=== PATIENT | female | born 1955 | race Caucasian/White ===

== ENCOUNTER 2016-09-22 11:57 | Inpatient (IN) | payer MEDICARE, OTHER ==
[~2016-09-22] VITALS: Ht 152.4 cm; Wt 112.3 kg
[~2016-09-22 11:57] MED LIST: ASPI325T PO; AUGM875T PO; BACL10TA PO; BACT800T5 PO; CALC500T17 PO; COLA100C3 PO; DULO1CAP2 PO; FENT25T T-DERMAL; FURO1TAB62 PO; GABA300C5 PO; GABA800T PO; GLIM2TAB PO; LACT PO; LEVEMIR SQ; LISI-519 PO; MULT1TAB84 PO; OXYC1CAP PO; PANT40TA3 PO; POTA10CA PO; PRAV40TA2 PO; REGL10TA5 PO
[2016-09-22 12:08] VITALS: BP 118/78; PULSE 80; RESP 16; TEMP 98.7; O2SAT 99
--- NOTE | 2016-09-22 12:50 | PD ---
HPI Chief Complaint: Skin Problem Time Seen by Provider: 12:19 Travel History International Travel<30 days: No Contact w/Intl Traveler<30days: No Traveled to known affect area: No History of Present Illness HPI This is a 61-year-old female who presents to the emergency department with swelling and redness of her left lower extremity, constant, worsening throughout the day. Patient has a history of diabetes and chronic lymphedema and has recurrent cellulitis in the left leg. She says that the redness and warmth started today and has progressed rapidly. This is happened to her before and she always requires admission to the hospital for IV antibiotics. She denies any fevers and chills and otherwise feels well. PFSH Past Medical History Hx Anticoagulant Therapy: Yes Arthritis: Yes (back, right knee) Asthma: No Autoimmune Disease: No Blood Disorders: No Anxiety: No Depression: Yes Heart Rhythm Problems: No Cancer: Yes (Uterine CA 2006) Cardiovascular Problems: Yes High Cholesterol: Yes Chemotherapy: No Chest Pain: Yes (2005) Congestive Heart Failure: No COPD: No Cerebrovascular Accident: Yes (CVA) Diabetes: Yes Patient Takes Glucophage: No Diminished Hearing: No Endocrine: Yes Gastrointestinal Disorders: Yes GERD: No Glaucoma: No Genitourinary: Yes Headaches: Yes Hepatitis: No Hiatal Hernia: No Hypertension: Yes Immune Disorder: No Implanted Vascular Access Dvce: No Kidney Stones: No Musculoskeletal: Yes (left arm pain - shoulder to fingers; left leg pain, LEFT- SIDED DEFECIT/WEAK) 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) Psychiatric: No Reproductive: Yes (Uterine CA) Respiratory: Yes Migraines: Yes Myocardial Infarction: Yes Radiation Therapy: No Renal Failure: No Seizures: No Sickle Cell Disease: No Sleep Apnea: Yes (USES C-PAP) Thyroid Disease: No Ulcer: No Tetanus Vaccination: < 5 Years ?: Not Menopausal: Yes : 1 Para: 1 Past Surgical History Abdominal Surgery: Yes (zachary cramer 1994) AICD: No Appendectomy: No Arteriovenous Shunt: No Cardiac Surgery: No Section: Yes (X 1) Cholecystectomy: Yes Ear Surgery: No Endocrine Surgery: No Eye Surgery: No Genitourinary Surgery: No Gynecologic Surgery: Yes (hysterectomy with node removal 2006, csection 1978) Hysterectomy: Yes Insulin Pump: No Joint Replacement: No Oral Surgery: No Pacemaker: No Thoracic Surgery: No Other Surgery: Yes (sinus surgery) Social History Alcohol Use: No Tobacco Use: No Substance Use: No Allergies-Medications (Allergen,Severity, Reaction): Coded Allergies: Biaxin (Verified Allergy, Severe, RASH, 09/22/16) Lipitor (Verified Allergy, Severe, TREMORS, MUSCLE PAIN, 09/22/16) Uncoded Allergies: PAPER TAPE (Allergy, Severe, Rash, 12/06/14) Reported Meds & Prescriptions Reported Meds & Active Scripts Active Duragesic Patch 72 HR (Fentanyl) 25 Mcg/Hr Patch 25 Mcg T-DERMAL Q72H Remove old patch when new one placed. Oxycodone (Oxycodone HCl) 5 Mg Cap 5 Mg PO Q6H PRN Potassium Chloride ER (Potassium Chloride) 10 Meq Cap 10 Meq PO DAILY Reglan (Metoclopramide HCl) 10 Mg Tab 10 Mg PO DIRECTED Take TIDAC and QHS Take 30 min before meals. Levemir Inj (Insulin Detemir) 1,000 unit/ 10 ML Vial 26 Units SQ HS 30 Days Reported Pravastatin 40 Mg Tab 40 Mg PO DAILY Lisinopril 5 Mg Tab 5 Mg PO DAILY Baclofen 10 Mg Tab 30 Mg PO HS Duloxetine DR (Duloxetine HCl) 30 Mg Capdr 30 Mg PO DAILY Pantoprazole (Pantoprazole Sodium) 40 Mg Tab 40 Mg PO DAILY Multivitamin Adults (Multiple Vitamins W/ Minerals) 1 Tab 1 Tab PO DAILY Gabapentin 800 Mg Tab 800 Mg PO HS Gabapentin 300 Mg Cap 300 Mg PO DAILY Lasix (Furosemide) 20 Mg Tab 20 Mg PO DAILY Calcium (Calcium Carbonate) 1,250 Mg Tab 1,250 Mg PO DAILY 1,250 mg calcium carbonate (500 mg elemental calcium) Aspirin 325 Mg Tab 325 Mg PO DAILY Glimepiride 2 Mg Tab 2 Mg PO DAILY Take with breakfast or first main meal Colace (Docusate Sodium) 100 Mg Cap 100 Mg PO BID PRN Review of Systems Except as stated in HPI: all other systems reviewed are Neg Physical Exam Narrative GENERAL:Well appearing, no acute distress SKIN: Erythema and warmth of the left lower extremity from the ankle up to the thigh. Lymphedema of the left lower extremity. HEAD: Atraumatic. Normocephalic. EYES: Pupils equal and round. No injection or drainage. ENT: Moist mucous membranes NECK: Trachea midline. CARDIOVASCULAR: Regular rate and rhythm. No murmur appreciated. RESPIRATORY: Clear to auscultation. Breath sounds equal bilaterally. GASTROINTESTINAL: Abdomen soft, non-tender, nondistended. MUSCULOSKELETAL: No obvious deformities. NEUROLOGICAL: Awake and alert. No obvious cranial nerve deficits. Moving all extremities. PSYCHIATRIC: Appropriate mood and affect; insight and judgment normal. Data Data Last Documented VS Vital Signs Date Time Temp Pulse Resp B/P Pulse Ox O2 Delivery O2 Flow Rate FiO2 09/22/16 14:15 16 09/22/16 13:30 80 116/76 98 Room Air 09/22/16 12:08 98.7 Orders Complete Blood Count With Diff (09/22/16 12:23) Comprehensive Metabolic Panel (09/22/16 12:23) Lactic Acid Sepsis Protocol (09/22/16 12:23) Blood Culture (09/22/16 12:23) Blood Glucose (09/22/16 12:23) Ecg Monitoring (09/22/16 12:23) Iv Access Insert/Monitor (09/22/16 12:23) Oximetry (09/22/16 12:23) Oxygen Administration (09/22/16 12:23) Ed Poc Ultrasound (09/22/16 ) Vancomycin Inj (Vancomycin Inj) (09/22/16 13:15) Vancomycin Inj (Vancomycin Inj) (09/22/16 14:00) Morphine Inj (Morphine Inj) (09/22/16 14:00) Vancomycin Inj (Vancomycin Inj) (09/22/16 14:00) Consult Vascular Access Team (09/22/16 ) Vascular Poc Ultrasound (09/22/16 ) Hydromorphone Pf Inj (Dilaudid Pf Inj) (09/22/16 14:30) Admit Order (Ed Use Only) (09/22/16 14:28) Labs Laboratory Tests Test 09/22/16 09/22/16 13:00 13:05 White Blood Count 22.6 TH/MM3 Red Blood Count 4.54 MIL/MM3 Hemoglobin 13.3 GM/DL Hematocrit 38.8 % Mean Corpuscular Volume 85.5 FL Mean Corpuscular Hemoglobin 29.4 PG Mean Corpuscular Hemoglobin 34.3 % Concent Red Cell Distribution Width 12.5 % Platelet Count 346 TH/MM3 Mean Platelet Volume 8.6 FL Neutrophils (%) (Auto) 87.9 % Lymphocytes (%) (Auto) 3.7 % Monocytes (%) (Auto) 4.3 % Eosinophils (%) (Auto) 0.2 % Basophils (%) (Auto) 3.9 % Neutrophils # (Auto) 19.9 TH/MM3 Lymphocytes # (Auto) 0.8 TH/MM3 Monocytes # (Auto) 1.0 TH/MM3 Eosinophils # (Auto) 0.0 TH/MM3 Basophils # (Auto) 0.9 TH/MM3 CBC Comment AUTO DIFF Differential Total Cells 100 Counted Neutrophils % (Manual) 89 % Band Neutrophils % 3 % Lymphocytes % 5 % Monocytes % 3 % Neutrophils # (Manual) 20.8 TH/MM3 Differential Comment FINAL DIFF MANUAL Platelet Estimate NORMAL Platelet Morphology Comment NORMAL Sodium Level 140 MEQ/L Potassium Level 3.6 MEQ/L Chloride Level 100 MEQ/L Carbon Dioxide Level 30.6 MEQ/L Anion Gap 9 MEQ/L Blood Urea Nitrogen 12 MG/DL Creatinine 0.71 MG/DL Estimat Glomerular Filtration 84 ML/MIN Rate Random Glucose 202 MG/DL Calcium Level 9.1 MG/DL Total Bilirubin 0.6 MG/DL Aspartate Amino Transf 18 U/L (AST/SGOT) Alanine Aminotransferase 28 U/L (ALT/SGPT) Alkaline Phosphatase 130 U/L Total Protein 8.1 GM/DL Albumin 3.8 GM/DL Lactic Acid Level 2.2 mmol/L [facility] Medical Decision Making Medical Screen Exam Complete: Yes Emergency Medical Condition: Yes Interpretation(s) Afebrile, no tachycardia, normotensive Leukocytosis Left shift Electrolytes within normal limits Lactic acid 2.2 Differential Diagnosis Cellulitis, sepsis, necrotizing fasciitis Narrative Course This is a 61-year-old female who presents to the emergency department with cellulitis of her left lower extremity in the setting of chronic lymphedema. She was placed on a monitor and an IV was established. Patient was found to have a marked leukocytosis with left shift. Her lactic acid is 2.2. I'm hesitant to hydrate her given her already severe lymphedema. Patient will be given IV antibiotics and admitted for management of cellulitis. Diagnosis Primary Impression: Cellulitis of leg, left Admitting Information Admitting Physician Requests: Admit Jessi Kim MD Sep 22, 2016 12:50
[2016-09-22] MEDS ORDERED: VANCOMYCIN INJ 1,650 MG in SODIUM CHLORID 0.9% 500 ML INJ 500 ML IV ONE ×5 (13:15→14:00)
[2016-09-22 13:30] VITALS: BP 116/76; PULSE 80; RESP 16; O2SAT 98
[2016-09-22 13:33] LABS: AUTOMATED NEUTROPHIL # 19.9 TH/MM3 (1.8-7.7); BASOPHIL # 0.9 TH/MM3 (0-0.2); BASOPHIL % 3.9 % (0.0-2.0); EOSINOPHIL % 0.2 % (0.0-4.0); HEMATOCRIT 38.8 % (35.0-46.0); LYMPH % 3.7 % (9.0-44.0); LYMPHOCYTE # 0.8 TH/MM3 (1.0-4.8); MEAN CELL VOLUME 85.5 FL (80.0-100.0); MEAN CORPUSCULAR HEMOGLOBIN 29.4 PG (27.0-34.0); MEAN CORPUSCULAR HGB CONC 34.3 % (32.0-36.0); MONO % 4.3 % (0.0-8.0); NEUT % 87.9 % (16.0-70.0); PLATELET COUNT 346 TH/MM3 (150-450); RED BLOOD COUNT 4.54 MIL/MM3 (4.00-5.30); RED CELL DISTRIBUTION WIDTH 12.5 % (11.6-17.2); WHITE BLOOD COUNT 22.6 TH/MM3 (4.0-11.0)
[2016-09-22 13:37] LABS: HEMO FLAGS AUTO DIFF
[2016-09-22 13:43] LABS: CHLORIDE 100 MEQ/L (98-107); POTASSIUM 3.6 MEQ/L (3.5-5.1); SODIUM (NA) 140 MEQ/L (136-145)
[2016-09-22 13:46] LABS: ANION GAP 9 MEQ/L (5-15); BICARBONATE 30.6 MEQ/L (21.0-32.0); BLOOD UREA NITROGEN 12 MG/DL (7-18)
[2016-09-22 13:49] LABS: ALT (GPT) 28 U/L (10-53)
[2016-09-22 13:50] LABS: AST (GOT) 18 U/L (15-37); GLOMERULAR FILTRATION RATE 84 ML/MIN (>89)
[2016-09-22 13:51] LABS: TOTAL BILIRUBIN ADULT 0.6 MG/DL (0.2-1.0)
[2016-09-22 13:52] LABS: ALKALINE PHOSPHATASE 130 U/L (45-117)
[2016-09-22] MEDS ORDERED: MORPHINE SULFATE 4 MG/ML INJ IV PUSH ONE (14:00)
[2016-09-22 14:13] LABS: BANDS 3 % (0-6); NEUTROPHIL # MANUAL DIFF 20.8 TH/MM3 (1.8-7.7); PLATELET ESTIMATE SMEAR NORMAL (NORMAL); PLATELET MORPHOLOGY NORMAL (NORMAL); POLYS (SEG NEUTROPHILS) 89 % (16-70); SCAN/DIFF FINAL DIFF MANUAL; WBC DIFF SAMPLE 100
[2016-09-22] MEDS ORDERED: HYDROmorphone HCL PF 1 MG/ML VIAL IM ONE (14:30)
[2016-09-22 14:45] VITALS: BP 118/61; PULSE 98; RESP 16; O2SAT 96
[2016-09-22 15:28] LABS: LACTIC ACID GHOST NOT REPORTABLE
[2016-09-22] MEDS ORDERED: Vancomycin Consult Pharmacy 1 EA OTHER SCH (15:30)
[2016-09-22] MEDS ORDERED: VANCOMYCIN INJ 1,000 MG in SODIUM CHLOR 0.9% 250 ML INJ 250 ML IV SCH (15:30)
[2016-09-22] MEDS ORDERED: ONDANSETRON HCL 4 MG/2 ML VIAL IVP PRN (15:30)
[2016-09-22] MEDS ORDERED: SODIUM CHLORIDE 0.9% FLUSH 5 ML FLUSH FLUSH PRN (15:30)
--- NOTE | 2016-09-22 15:56 | HHI.HP ---
[facility] Primary Care Physician Non-Staff Admission Diagnosis sepsis, cellulitis Diagnoses: Chief Complaint: Left leg redness and swelling Travel History International Travel<30 Days: No Contact w/Intl Traveler <30 Da: No Traveled to Known Affected Are: No Sepsis Criteria SIRS Criteria (2 or more): Heart rate over 90, WBC > 18964, < 4000 or > 10% bands History of Present Illness This patient is a 61-year-old female with a history of morbid obesity and diabetes as well as a history of lymph node resection due to cervical cancer. She has chronic lymphedema and the left lower extremity as well as some left hemiparesis related to residual effects of her old stroke. Patient has noted one day history of increased redness and swelling in the left lower extremity similar to previous episodes in which she has had cellulitis and sepsis related to said cellulitis. Patient says the pain in her leg became great and she had some associated chills and felt warm and came to the emergency room. At this point patient has some mild tachycardia with elevated white cell count and elevated lactic acid has been admitted through the emergency room for sepsis. The pain in her leg has been relieved with IV Dilaudid. She has been started on IV antibiotics and is recommended for further inpatient treatment Review of Systems Constitutional: DENIES: Diaphoretic episodes, Fatigue, Fever, Weight gain, Weight loss, Chills, Dizziness, Change in appetite, Night Sweats Endocrine: DENIES: Abnorml menstrual pattern, Heat/cold intolerance, Polydipsia , Polyuria, Polyphagia Eyes: DENIES: Blurred vision, Diplopia, Eye inflammation, Eye pain, Vision loss , Photosensitivity, Double Vision Ears, nose, mouth, throat: DENIES: Tinnitus, Hearing loss, Vertigo, Nasal discharge, Oral lesions, Throat pain, Hoarseness, Ear Pain, Running Nose, Epistaxis, Sinus Pain, Toothache, Odynophagia Respiratory: DENIES: Apneas, Cough, Snoring, Wheezing, Hemoptysis, Sputum production, Shortness of breath Cardiovascular: DENIES: Chest pain, Palpitations, Syncope, Dyspnea on Exertion , PND, Lower Extremity Edema, Orthopnea, Claudication Gastrointestinal: DENIES: Abdominal pain, Black stools, Bloody stools, Constipation, Diarrhea, Nausea, Vomiting, Difficulty Swallowing, Anorexia Genitourinary: DENIES: Abnormal vaginal bleeding, Dysmenorrhea, Dyspareunia, Sexual dysfunction, Urinary frequency, Urinary incontinence, Urgency, Hematuria , Dysuria, Nocturia, Vaginal discharge Musculoskeletal: DENIES: Joint pain, Muscle aches, Stiffness, Joint Swelling, Back pain, Neck pain Integumentary: DENIES: Abnormal pigmentation, Pruritus, Rash, Nail changes, Breast masses, Breast skin changes, Nipple discharge Hematologic/lymphatic: DENIES: Bruising, Lymphadenopathy Immunologic/allergic: DENIES: Eczema, Urticaria Neurologic: DENIES: Abnormal gait, Headache, Localized weakness, Paresthesias, Seizures, Speech Problems, Tremor, Poor Balance Psychiatric: DENIES: Anxiety, Confusion, Mood changes, Depression, Hallucinations, Agitation, Suicidal Ideation, Homicidal Ideation, Delusions Past Family Social History Past Medical History Diabetes Hypertension History of stroke with residual left-sided weakness Hyperlipidemia Hypertriglyceridemia Chronic neuropathy of diabetes History of [place] cervical cancer status post lymph node resection Past Surgical History Lymph node resection Cholecystectomy Hysterectomy Reported Medications Reviewed in the medical record, no recent antibiotics Allergies: Coded Allergies: Biaxin (Verified Allergy, Severe, RASH, 09/22/16) Lipitor (Verified Allergy, Severe, TREMORS, MUSCLE PAIN, 09/22/16) Uncoded Allergies: PAPER TAPE (Allergy, Severe, Rash, 12/06/14) Active Ordered Medications Reviewed in the medical record Family History Diabetes and hypertension Social History No current tobacco or alcohol, lives with her Physical Exam Vital Signs Vital Signs Date Time Temp Pulse Resp B/P Pulse Ox O2 Delivery O2 Flow Rate FiO2 09/22/16 14:45 98 16 118/61 96 Room Air 09/22/16 14:15 16 09/22/16 13:30 80 16 116/76 98 Room Air 09/22/16 13:30 98 Room Air 09/22/16 13:30 16 98 Room Air 09/22/16 12:08 98.7 80 16 118/78 99 Physical Exam GENERAL: This is a well-nourished, well-developed patient, in no apparent distress. SKIN: No rashes, ecchymoses or lesions. Cool and dry. HEAD: Atraumatic. Normocephalic. No temporal or scalp tenderness. EYES: Pupils equal round and reactive. Extraocular motions intact. No scleral icterus. No injection or drainage. ENT: Nose without bleeding, purulent drainage or septal hematoma. Throat without erythema, tonsillar hypertrophy or exudate. Uvula midline. Airway patent. NECK: Trachea midline. No JVD or lymphadenopathy. Supple, nontender, no meningeal signs. CARDIOVASCULAR: Regular rate and rhythm without murmurs, gallops, or rubs. RESPIRATORY: Clear to auscultation. Breath sounds equal bilaterally. No wheezes , rales, or rhonchi. GASTROINTESTINAL: Abdomen soft, non-tender, nondistended. No hepato-splenomegaly , or palpable masses. No guarding. MUSCULOSKELETAL: Left lower extremity lymphedematous changes with superimposed erythema and induration and calorie, this extends from the top of the foot into high in the thigh. Other 3 Extremities without clubbing, cyanosis, or edema. No joint tenderness, effusion, or edema noted. No calf tenderness. Negative Homans sign bilaterally. NEUROLOGICAL: Awake and alert. Cranial nerves II through XII intact. Motor and sensory grossly within normal limits. Five out of 5 muscle strength in all muscle groups. Normal speech. Laboratory Laboratory Tests Test 09/22/16 09/22/16 13:00 13:05 White Blood Count 22.6 Red Blood Count 4.54 Hemoglobin 13.3 Hematocrit 38.8 Mean Corpuscular Volume 85.5 Mean Corpuscular Hemoglobin 29.4 Mean Corpuscular Hemoglobin 34.3 Concent Red Cell Distribution Width 12.5 Platelet Count 346 Mean Platelet Volume 8.6 Neutrophils (%) (Auto) 87.9 Lymphocytes (%) (Auto) 3.7 Monocytes (%) (Auto) 4.3 Eosinophils (%) (Auto) 0.2 Basophils (%) (Auto) 3.9 Neutrophils # (Auto) 19.9 Lymphocytes # (Auto) 0.8 Monocytes # (Auto) 1.0 Eosinophils # (Auto) 0.0 Basophils # (Auto) 0.9 CBC Comment AUTO DIFF Differential Total Cells 100 Counted Neutrophils % (Manual) 89 Band Neutrophils % 3 Lymphocytes % 5 Monocytes % 3 Neutrophils # (Manual) 20.8 Differential Comment FINAL DIFF MANUAL Platelet Estimate NORMAL Platelet Morphology Comment NORMAL Sodium Level 140 Potassium Level 3.6 Chloride Level 100 Carbon Dioxide Level 30.6 Anion Gap 9 Blood Urea Nitrogen 12 Creatinine 0.71 Estimat Glomerular Filtration 84 Rate Random Glucose 202 Calcium Level 9.1 Total Bilirubin 0.6 Aspartate Amino Transf 18 (AST/SGOT) Alanine Aminotransferase 28 (ALT/SGPT) Alkaline Phosphatase 130 Total Protein 8.1 Albumin 3.8 Lactic Acid Level 2.2 Date/Time Procedure Status Source Growth 09/22/16 13:05 Aerobic Blood Culture Received Blood Peripheral Pending 09/22/16 13:05 Anaerobic Blood Culture Received Blood Peripheral Pending Result Diagram: 09/22/16 1300 09/22/16 1300 Septic Shock Reassessment Heart: Regular rate and rhythm Lungs: Clear Skin: Warm Peripheral Pulses: Bounding Right Radial Bounding Left Radial Bounding Right Popliteal Bounding Left Popliteal Bounding Right Dorsalis Pedis Bounding Left Dorsalis Pedis Bounding Right Posterior Tibial Bounding Left Posterior Tibial Capillary Refill: Brisk Assessment and Plan Problem List: (1) Sepsis affecting skin ICD Code: L02.91 Status: Acute Plan: Leukocytosis, heart rate over 90, elevated lactic acid and left lower extremity cellulitis Continue with IV vancomycin and Zosyn (2) DM (diabetes mellitus), type 2, uncontrolled ICD Code: E11.65 Status: Chronic Plan: Continue Levemir, Amaryl, continue sliding scale and diabetic diet (3) HTN (hypertension) ICD Code: I10 Status: Chronic Plan: Continue home lisinopril for blood pressure Physician Certification 2 Midnight Certification Type: Admission for Inpatient Services Order for Inpatient Services The services are ordered in accordance with Medicare regulations or non- Medicare payer requirements, as applicable. In the case of services not specified as inpatient-only, they are appropriately provided as inpatient services in accordance with the 2-midnight benchmark. Estimated LOS (days): 3 3 days is the estimated time the patient will need to remain in the hospital, assuming treatment plan goals are met and no additional complications. Post-Hospital Plan: Home Clair Keen MD Sep 22, 2016 15:56
[2016-09-22] MEDS ORDERED: DOCUSATE SODIUM 100 MG CAP PO PRN (16:00)
[2016-09-22] MEDS ORDERED: METOCLOPRAMIDE HCL 10 MG TAB PO PRN (16:00)
[2016-09-22] MEDS ORDERED: GLUCAGON 1 MG/ML VIAL OTHER PRN (16:00)
[2016-09-22] MEDS ORDERED: DEXTROSE 50% IN WATER 50 ML VIAL(D50) IV PUSH PRN (16:00)
[2016-09-22] MEDS ORDERED: PIPERACIL-TAZO 4.5 GM PREMIX 100 ML IV SCH (16:00)
[2016-09-22] MEDS: INSULIN ASPART SUPPLEMENTAL SCALE SQ SCH ×2 (17:00→22:33)
[2016-09-22] MEDS ORDERED: REMOVE OLD DURAGESIC (FENTANYL) PATCH T-DERMAL SCH (18:00)
[2016-09-22] MEDS ORDERED: fentaNYL 25 MCG/HR PATCH T-DERMAL SCH (18:00)
[2016-09-22 20:00] VITALS: BP 120/74; PULSE 100; RESP 18; TEMP 101.1; O2SAT 93
[2016-09-22] MEDS: SODIUM CHLORIDE 0.9% FLUSH 5 ML FLUSH FLUSH SCH (21:03)
[2016-09-22] MEDS: BACLOFEN 10 MG TAB PO SCH (22:27)
[2016-09-22] MEDS: INSULIN DETEMIR 100 UNITS/ML VIAL SQ SCH (22:28)
[2016-09-22] MEDS: GABAPENTIN 400 MG CAP PO SCH (22:28)
[2016-09-22] MEDS: ACETAMINOPHEN 325 MG TAB PO PRN (22:29)
[2016-09-23] VITALS: BP 116/63; PULSE 102; RESP 18; TEMP 101.8; O2SAT 92
[2016-09-23 03:34] VITALS: BP 99/59; PULSE 94; RESP 20; TEMP 99.4; O2SAT 94
[2016-09-23] MEDS: ACETAMINOPHEN 325 MG TAB PO PRN (04:47)
[2016-09-23] MEDS: PIPERACIL-TAZO 4.5 GM PREMIX 100 ML IV SCH ×3 (04:49→21:45)
[2016-09-23] MEDS: INSULIN ASPART SUPPLEMENTAL SCALE SQ SCH ×4 (04:59→19:51)
[2016-09-23 06:06] LABS: POTASSIUM 3.1 MEQ/L (3.5-5.1)
[2016-09-23 06:09] LABS: BICARBONATE 29.2 MEQ/L (21.0-32.0)
[2016-09-23] MEDS: LISINOPRIL 5 MG TAB PO SCH (07:58)
[2016-09-23] MEDS: GABAPENTIN 300 MG CAP PO SCH (07:58)
[2016-09-23] MEDS: FUROSEMIDE 20 MG TAB PO SCH (07:58)
[2016-09-23] MEDS: PRAVASTATIN SOD 40 MG TAB PO SCH (07:58)
[2016-09-23] MEDS: ASPIRIN 325 MG TAB PO SCH (07:58)
[2016-09-23] MEDS: GLIMEPIRIDE 2 MG TAB PO SCH (07:59)
[2016-09-23] MEDS: MULTIVITAMINS/MINERALS THERAPEUTIC TAB PO SCH (07:59)
[2016-09-23] MEDS: PANTOPRAZOLE SOD 40 MG DELAYED RELEASE TAB PO SCH (07:59)
[2016-09-23] MEDS: CALCIUM CARBONATE 1.25 GM (CA 500 MG) TAB PO SCH (07:59)
[2016-09-23] MEDS: DULoxetine HCl DR 30 MG CAP PO SCH (08:00)
[2016-09-23] MEDS: SODIUM CHLORIDE 0.9% FLUSH 5 ML FLUSH FLUSH SCH ×2 (08:00→19:55)
[2016-09-23 09:08] VITALS: BP 93/51; PULSE 73; RESP 15; TEMP 97.3; O2SAT 98
[2016-09-23 09:09] LABS: HEMATOCRIT 35.4 % (35.0-46.0); HEMO FLAGS AUTO DIFF; MEAN CELL VOLUME 86.6 FL (80.0-100.0); MEAN CORPUSCULAR HGB CONC 33.5 % (32.0-36.0); PLATELET COUNT 291 TH/MM3 (150-450); RED BLOOD COUNT 4.09 MIL/MM3 (4.00-5.30); WHITE BLOOD COUNT 20.7 TH/MM3 (4.0-11.0)
[2016-09-23 09:10] LABS: AUTOMATED NEUTROPHIL # 16.8 TH/MM3 (1.8-7.7); BASOPHIL # 0.3 TH/MM3 (0-0.2); BASOPHIL % 1.5 % (0.0-2.0); EOSINOPHIL # 0.1 TH/MM3 (0-0.4); EOSINOPHIL % 0.7 % (0.0-4.0); LYMPH % 10.4 % (9.0-44.0); LYMPHOCYTE # 2.2 TH/MM3 (1.0-4.8); MONO % 6.3 % (0.0-8.0); NEUT % 81.1 % (16.0-70.0); SCAN/DIFF AUTO DIFF CONFIRMED
--- NOTE | 2016-09-23 10:35 | HHI.PR ---
Subjective Remarks Patient seen today in follow-up for cellulitis and sepsis. Left lower extremity appears improved. Blood cultures now show 1 out of 2 gram-positive cocci. Patient continues to tolerate antibiotics well. Objective Vitals Vital Signs Date Time Temp Pulse Resp B/P Pulse Ox O2 Delivery O2 Flow Rate FiO2 09/23/16 09:08 97.3 73 15 93/51 98 09/23/16 03:34 99.4 94 20 99/59 94 09/23/16 00:00 101.8 102 18 116/63 92 09/22/16 20:00 101.1 100 18 120/74 93 09/22/16 14:45 98 16 118/61 96 Room Air 09/22/16 14:15 16 09/22/16 13:30 80 16 116/76 98 Room Air 09/22/16 13:30 98 Room Air 09/22/16 13:30 16 98 Room Air 09/22/16 12:08 98.7 80 16 118/78 99 I/O 09/22/16 09/22/16 09/22/16 09/23/16 09/23/16 09/23/16 07:00 15:00 23:00 07:00 15:00 23:00 Intake Total 600 ml 200 ml Balance 600 ml 200 ml Intake Oral 100 ml IV Total 600 ml 100 ml Result Diagram: 09/23/16 0755 09/23/16 0545 Objective Remarks GENERAL: This is a well-nourished, well-developed patient, in no apparent distress. CARDIOVASCULAR: Regular rate and rhythm without murmurs, gallops, or rubs. RESPIRATORY: Clear to auscultation. Breath sounds equal bilaterally. No wheezes , rales, or rhonchi. GASTROINTESTINAL: Abdomen soft, non-tender, nondistended. Normal active bowel sounds MUSCULOSKELETAL: Left lower extremity edema and erythema is improved Extremities without clubbing, cyanosis, or edema. NEURO: Alert & Oriented x4 to person, place, time, situation. Moves all ext x4 A/P Problem List: (1) Sepsis affecting skin ICD Code: L02.91 Status: Acute Plan: Improved sepsis, follow blood cultures, leukocytosis, heart rate lactic acid are improved Continue with IV vancomycin and Zosyn (2) DM (diabetes mellitus), type 2, uncontrolled ICD Code: E11.65 Status: Chronic Plan: Continue Levemir, Amaryl, continue sliding scale and diabetic diet (3) HTN (hypertension) ICD Code: I10 Status: Chronic Plan: Continue home lisinopril for blood pressure Assessment and Plan PT Clair Pollack MD Sep 23, 2016 10:35
[2016-09-23] MEDS ORDERED: POTASSIUM PHOSPHATE INJ 30 MMOL in SODIUM CHLOR 0.9% 250 ML INJ 250 ML IV ONE (11:00)
--- NOTE | 2016-09-23 12:12 | HHI.FF ---
Face to Face Verification Diagnosis: (1) Stroke Physical Therapy Order: Evaluate and Treat, Improve ambulation Home Health Nursing Order: Medical education Signs/symptoms of disease process Medication education-adverse effect Home Health Aide Order: To Assist In: Bathing and personal care, choir teacher and meal prep I have seen patient Louise Parker on 09/23/16. My clinical findings support the need for the requested home health care services because: Ltd mobility - disease progression I certify that my clinical findings support that this patient is homebound because: Unsteady gait/balance Clair Keen MD Sep 23, 2016 12:12
[2016-09-23] MEDS: ENOXAPARIN SODIUM 40 MG/0.4 ML SYRINGE SQ SCH (12:27)
[2016-09-23] MEDS: VANCOMYCIN INJ 1,600 MG in SODIUM CHLORID 0.9% 500 ML INJ 500 ML IV SCH (12:28)
[2016-09-23 13:43] VITALS: BP 115/64; PULSE 80; RESP 16; TEMP 97.6; O2SAT 96
[2016-09-23 18:49] VITALS: BP 117/68; PULSE 79; RESP 15; TEMP 97.6; O2SAT 95
[2016-09-23] MEDS: INSULIN DETEMIR 100 UNITS/ML VIAL SQ SCH (19:50)
[2016-09-23] MEDS: GABAPENTIN 400 MG CAP PO SCH (19:51)
[2016-09-23] MEDS: BACLOFEN 10 MG TAB PO SCH (19:51)
[2016-09-23 20:00] VITALS: BP 139/82; PULSE 78; RESP 18; TEMP 97.8; O2SAT 95
[2016-09-24] VITALS: BP 137/77; PULSE 80; RESP 16; TEMP 99; O2SAT 90
[2016-09-24 04:00] VITALS: BP 100/72; PULSE 73; RESP 16; TEMP 98.8; O2SAT 96
[2016-09-24] MEDS: VANCOMYCIN INJ 1,600 MG in SODIUM CHLORID 0.9% 500 ML INJ 500 ML IV SCH ×2 (05:48→23:59)
[2016-09-24] MEDS: PIPERACIL-TAZO 4.5 GM PREMIX 100 ML IV SCH ×3 (05:49→20:35)
[2016-09-24] MEDS: INSULIN ASPART SUPPLEMENTAL SCALE SQ SCH ×4 (06:21→20:37)
[2016-09-24 06:25] LABS: AUTOMATED NEUTROPHIL # 13.3 TH/MM3 (1.8-7.7); BASOPHIL # 0.5 TH/MM3 (0-0.2); BASOPHIL % 2.5 % (0.0-2.0); EOSINOPHIL # 0.6 TH/MM3 (0-0.4); EOSINOPHIL % 3.1 % (0.0-4.0); HEMATOCRIT 35.1 % (35.0-46.0); LYMPH % 15.7 % (9.0-44.0); LYMPHOCYTE # 2.9 TH/MM3 (1.0-4.8); MEAN CELL VOLUME 85.7 FL (80.0-100.0); MEAN CORPUSCULAR HEMOGLOBIN 29.1 PG (27.0-34.0); MONO % 6.4 % (0.0-8.0); NEUT % 72.3 % (16.0-70.0); PLATELET COUNT 288 TH/MM3 (150-450); WHITE BLOOD COUNT 18.5 TH/MM3 (4.0-11.0)
[2016-09-24 06:58] LABS: HEMO FLAGS AUTO DIFF
[2016-09-24 07:00] LABS: EOSINOPHILS 2 % (0-4); NEUTROPHIL # MANUAL DIFF 11.1 TH/MM3 (1.8-7.7); POLYS (SEG NEUTROPHILS) 60 % (16-70); SCAN/DIFF FINAL DIFF MANUAL; WBC DIFF SAMPLE 100
[2016-09-24 09:00] VITALS: BP 127/77; PULSE 73; RESP 15; TEMP 96.7; O2SAT 98
[2016-09-24] MEDS: DULoxetine HCl DR 30 MG CAP PO SCH (09:00)
[2016-09-24] MEDS: PRAVASTATIN SOD 40 MG TAB PO SCH (09:09)
[2016-09-24] MEDS: GABAPENTIN 300 MG CAP PO SCH (09:09)
[2016-09-24] MEDS: PANTOPRAZOLE SOD 40 MG DELAYED RELEASE TAB PO SCH (09:09)
[2016-09-24] MEDS: FUROSEMIDE 20 MG TAB PO SCH (09:09)
[2016-09-24] MEDS: GLIMEPIRIDE 2 MG TAB PO SCH (09:09)
[2016-09-24] MEDS: MULTIVITAMINS/MINERALS THERAPEUTIC TAB PO SCH (09:09)
[2016-09-24] MEDS: ASPIRIN 325 MG TAB PO SCH (09:09)
[2016-09-24] MEDS: CALCIUM CARBONATE 1.25 GM (CA 500 MG) TAB PO SCH (09:10)
[2016-09-24] MEDS: LISINOPRIL 5 MG TAB PO SCH (09:10)
[2016-09-24] MEDS: SODIUM CHLORIDE 0.9% FLUSH 5 ML FLUSH FLUSH SCH ×2 (09:10→20:37)
--- NOTE | 2016-09-24 10:46 | HHI.PR ---
Subjective Remarks Patient seen today in follow-up for left lower extremity cellulitis. Edema and erythema are improved. Pain is improved. Patient without new complaints today. Blood cultures show group B strep. Leukocytosis improved Objective Vitals Vital Signs Date Time Temp Pulse Resp B/P Pulse Ox O2 Delivery O2 Flow Rate FiO2 09/24/16 09:00 96.7 73 15 127/77 98 09/24/16 04:00 98.8 73 16 100/72 96 09/24/16 00:00 99.0 80 16 137/77 90 09/23/16 20:00 97.8 78 18 139/82 95 09/23/16 18:49 97.6 79 15 117/68 95 09/23/16 13:43 97.6 80 16 115/64 96 I/O 09/23/16 09/23/16 09/23/16 09/24/16 09/24/16 09/24/16 07:00 15:00 23:00 07:00 15:00 23:00 Intake Total 200 ml 1260 ml 280 ml Output Total 300 ml Balance 200 ml 1260 ml -20 ml Intake Oral 100 ml 1260 ml 280 ml IV Total 100 ml Output Urine Total 300 ml # Voids 4 1 # Bowel Movements 0 0 Result Diagram: 09/24/1652509/24/16525 Objective Remarks GENERAL: This is a well-nourished, well-developed patient, in no apparent distress. CARDIOVASCULAR: Regular rate and rhythm without murmurs, gallops, or rubs. RESPIRATORY: Clear to auscultation. Breath sounds equal bilaterally. No wheezes , rales, or rhonchi. GASTROINTESTINAL: Abdomen soft, non-tender, nondistended. Normal active bowel sounds MUSCULOSKELETAL: Left lower extremity edema and erythema is improved . Other 3 Extremities without clubbing, cyanosis, or edema. NEURO: Alert & Oriented x4 to person, place, time, situation. Moves all ext x4 A/P Problem List: (1) Sepsis affecting skin ICD Code: L02.91 Status: Acute (2) DM (diabetes mellitus), type 2, uncontrolled ICD Code: E11.65 Status: Chronic Plan: Continue Levemir, Amaryl, continue sliding scale and diabetic diet (3) HTN (hypertension) ICD Code: I10 Status: Chronic Plan: Continue home lisinopril for blood pressure Assessment and Plan PT LMWH Discharge Planning [facility] with [facility] when stable Clair Keen MD Sep 24, 2016 10:46
[2016-09-24] MEDS: ENOXAPARIN SODIUM 40 MG/0.4 ML SYRINGE SQ SCH (13:25)
[2016-09-24 13:36] VITALS: BP 137/81; PULSE 73; RESP 16; TEMP 97.3; O2SAT 99
[2016-09-24 18:01] VITALS: BP 157/84; PULSE 69; RESP 16; TEMP 97.4; O2SAT 98
[2016-09-24] MEDS: INSULIN DETEMIR 100 UNITS/ML VIAL SQ SCH (20:34)
[2016-09-24] MEDS: BACLOFEN 10 MG TAB PO SCH (20:35)
[2016-09-24] MEDS: GABAPENTIN 400 MG CAP PO SCH (20:35)
[2016-09-24 21:34] VITALS: BP 142/81; PULSE 78; RESP 18; TEMP 98.1; O2SAT 97
[2016-09-24] MEDS ORDERED: PHARMACY ORDERED LAB XX ONE (23:45)
[2016-09-25 00:54] VITALS: BP 148/89; PULSE 75; RESP 18; TEMP 98.5; O2SAT 96
[2016-09-25 04:00] VITALS: BP 154/84; PULSE 74; RESP 16; TEMP 98.7; O2SAT 95
[2016-09-25] MEDS: PIPERACIL-TAZO 4.5 GM PREMIX 100 ML IV SCH (05:57)
[2016-09-25] MEDS: INSULIN ASPART SUPPLEMENTAL SCALE SQ SCH ×2 (06:31→11:00)
[2016-09-25 07:50] LABS: AUTOMATED NEUTROPHIL # 6.3 TH/MM3 (1.8-7.7); BASOPHIL # 0.1 TH/MM3 (0-0.2); BASOPHIL % 0.7 % (0.0-2.0); EOSINOPHIL # 0.5 TH/MM3 (0-0.4); EOSINOPHIL % 5.3 % (0.0-4.0); HEMATOCRIT 33.1 % (35.0-46.0); HEMO FLAGS DIFF FINAL; LYMPH % 20.5 % (9.0-44.0); LYMPHOCYTE # 2.1 TH/MM3 (1.0-4.8); MEAN CELL VOLUME 86.1 FL (80.0-100.0); MEAN CORPUSCULAR HEMOGLOBIN 28.9 PG (27.0-34.0); MEAN CORPUSCULAR HGB CONC 33.6 % (32.0-36.0); MONO % 9.7 % (0.0-8.0); NEUT % 63.8 % (16.0-70.0); PLATELET COUNT 325 TH/MM3 (150-450); RED BLOOD COUNT 3.84 MIL/MM3 (4.00-5.30); RED CELL DISTRIBUTION WIDTH 12.9 % (11.6-17.2)
[2016-09-25 08:00] VITALS: BP 114/85; PULSE 86; RESP 18; TEMP 98; O2SAT 97
[2016-09-25 08:08] LABS: POTASSIUM 3.3 MEQ/L (3.5-5.1)
[2016-09-25 08:11] LABS: BICARBONATE 29.1 MEQ/L (21.0-32.0)
[2016-09-25] MEDS: MULTIVITAMINS/MINERALS THERAPEUTIC TAB PO SCH (08:16)
[2016-09-25] MEDS: FUROSEMIDE 20 MG TAB PO SCH (08:16)
[2016-09-25] MEDS: ASPIRIN 325 MG TAB PO SCH (08:16)
[2016-09-25] MEDS: GABAPENTIN 300 MG CAP PO SCH (08:16)
[2016-09-25] MEDS: DULoxetine HCl DR 30 MG CAP PO SCH (08:17)
[2016-09-25] MEDS: CALCIUM CARBONATE 1.25 GM (CA 500 MG) TAB PO SCH (08:17)
[2016-09-25] MEDS: GLIMEPIRIDE 2 MG TAB PO SCH (08:17)
[2016-09-25] MEDS: PANTOPRAZOLE SOD 40 MG DELAYED RELEASE TAB PO SCH (08:17)
[2016-09-25] MEDS: PRAVASTATIN SOD 40 MG TAB PO SCH (08:17)
[2016-09-25] MEDS: SODIUM CHLORIDE 0.9% FLUSH 5 ML FLUSH FLUSH SCH (08:18)
[2016-09-25] MEDS: LISINOPRIL 5 MG TAB PO SCH (08:21)
[2016-09-25] MEDS ORDERED: AUGM875T PO (11:40)
--- NOTE | 2016-09-25 11:44 | HHI.DS ---
Discharge Summary Admission Date Sep 22, 2016 at 14:30 Discharge Date: Sep 25, 2016 Admitting Diagnosis sepsis, cellulitis (1) Sepsis affecting skin ICD Code: L02.91 (2) DM (diabetes mellitus), type 2, uncontrolled ICD Code: E11.65 (3) HTN (hypertension) ICD Code: I10 Procedures none Brief History - From Admission This patient is a 61-year-old female with a history of morbid obesity and diabetes as well as a history of lymph node resection due to cervical cancer. She has chronic lymphedema and the left lower extremity as well as some left hemiparesis related to residual effects of her old stroke. Patient has noted one day history of increased redness and swelling in the left lower extremity similar to previous episodes in which she has had cellulitis and sepsis related to said cellulitis. Patient says the pain in her leg became great and she had some associated chills and felt warm and came to the emergency room. At this point patient has some mild tachycardia with elevated white cell count and elevated lactic acid has been admitted through the emergency room for sepsis. The pain in her leg has been relieved with IV Dilaudid. She has been started on IV antibiotics and is recommended for further inpatient treatment CBC/BMP: 09/25/16 0640 09/25/16 0640 Significant Findings Laboratory Tests Test 09/22/16 09/22/16 09/23/16 09/23/16 13:00 13:05 05:45 07:55 White Blood Count 22.6 TH/MM3 20.7 TH/MM3 (4.0-11.0) (4.0-11.0) Neutrophils (%) (Auto) 87.9 % 81.1 % (16.0-70.0) (16.0-70.0) Lymphocytes (%) (Auto) 3.7 % (9.0-44.0) Basophils (%) (Auto) 3.9 % (0.0-2.0) Neutrophils # (Auto) 19.9 TH/MM3 16.8 TH/MM3 (1.8-7.7) (1.8-7.7) Lymphocytes # (Auto) 0.8 TH/MM3 (1.0-4.8) Monocytes # (Auto) 1.0 TH/MM3 1.3 TH/MM3 (0-0.9) (0-0.9) Basophils # (Auto) 0.9 TH/MM3 0.3 TH/MM3 (0-0.2) (0-0.2) Neutrophils % (Manual) 89 % (16-70) Lymphocytes % 5 % (9-44) Neutrophils # (Manual) 20.8 TH/MM3 (1.8-7.7) Estimat Glomerular Filtration 84 ML/MIN (>89) Rate Random Glucose 202 MG/DL 107 MG/DL (74-106) (74-106) Alkaline Phosphatase 130 U/L (45-117) Lactic Acid Level 2.2 mmol/L (0.4-2.0) Potassium Level 3.1 MEQ/L (3.5-5.1) Test 09/24/16 09/25/16 05:26 06:40 White Blood Count 18.5 TH/MM3 (4.0-11.0) Neutrophils (%) (Auto) 72.3 % (16.0-70.0) Basophils (%) (Auto) 2.5 % (0.0-2.0) Neutrophils # (Auto) 13.3 TH/MM3 (1.8-7.7) Monocytes # (Auto) 1.2 TH/MM3 1.0 TH/MM3 (0-0.9) (0-0.9) Eosinophils # (Auto) 0.6 TH/MM3 0.5 TH/MM3 (0-0.4) (0-0.4) Basophils # (Auto) 0.5 TH/MM3 (0-0.2) Neutrophils # (Manual) 11.1 TH/MM3 (1.8-7.7) Red Blood Count 3.84 MIL/MM3 (4.00-5.30) Hemoglobin 11.1 GM/DL (11.6-15.3) Hematocrit 33.1 % (35.0-46.0) Monocytes (%) (Auto) 9.7 % (0.0-8.0) Eosinophils (%) (Auto) 5.3 % (0.0-4.0) Potassium Level 3.3 MEQ/L (3.5-5.1) Chloride Level 108 MEQ/L (98-107) Random Glucose 123 MG/DL (74-106) PE at Discharge GENERAL: This is a well-nourished, well-developed patient, in no apparent distress. CARDIOVASCULAR: Regular rate and rhythm without murmurs, gallops, or rubs. RESPIRATORY: Clear to auscultation. Breath sounds equal bilaterally. No wheezes , rales, or rhonchi. GASTROINTESTINAL: Abdomen soft, non-tender, nondistended. Normal active bowel sounds MUSCULOSKELETAL: Left lower extremity edema and erythema is improved . Other 3 Extremities without clubbing, cyanosis, or edema. NEURO: Alert & Oriented x4 to person, place, time, situation. Moves all ext x4 Pt update on day of discharge Patient seen today in follow-up for group B strep cellulitis with one out of 4 blood cultures positive. Patient did well with penicillin analogs and was discharged home Hospital Course This patient was seen and treated for left lower showing the cellulitis. She also had blood cultures drawn which did show group B strep. Patient tolerated antibiotics well. Leukocytosis improved. Fever resolved. Blood pressure and diabetes were controlled on home regimen. Pt Condition on Discharge: Good Discharge Disposition: Disch w/ Home Health Serv Discharge Time: > 30 minutes Discharge Instructions DIET: Follow Instructions for: Diabetic Diet Activities you can perform: Regular-No Restrictions Follow up Referrals: PCP Follow-up - 1 Week New Medications: Amoxicillin-Clavulanate (Augmentin) 875-125 mg Tab 875 MG PO BID not for use in CrCl <30 ml/min. Infection #20 Ref 0 TAB Continued Medications: Aspirin (Aspirin) 325 Mg Tab 325 MG PO DAILY #30 Ref 0 TAB Baclofen (Baclofen) 10 Mg Tab 30 MG PO HS Muscle Spasm Ref 0 TAB Calcium Carbonate (Calcium) 1,250 Mg Tab 1250 MG PO DAILY 1,250 mg calcium carbonate (500 mg elemental calcium) TAB Docusate Sodium (Colace) 100 Mg Cap 100 MG PO BID PRN Constipation #[address] (Duloxetine DR) 30 Mg Capdr 30 MG PO DAILY #30 Ref 0 CAP Fentanyl Patch 72 HR (Duragesic Patch 72 HR) 25 Mcg/Hr Patch 25 MCG T-DERMAL Q72H Remove old patch when new one placed. Pain Management #10 Ref 0 PATCH Furosemide (Lasix) 20 Mg Tab 20 MG PO DAILY #30 Ref 0 TAB Gabapentin (Gabapentin) 300 Mg Cap 300 MG PO DAILY #60 Ref 0 CAP Gabapentin (Gabapentin) 800 Mg Tab 800 MG PO HS #90 Ref 0 TAB Glimepiride (Glimepiride) 2 Mg Tab 2 MG PO DAILY Take with breakfast or first main meal Blood Sugar Management #30 Ref 0 TAB Insulin Detemir Inj (Levemir Inj) 1,000 unit/ 10 ML Vial 26 UNITS SQ HS Blood Sugar Management Days 30 INJECTION Lisinopril (Lisinopril) 5 Mg Tab 5 MG PO DAILY Blood Pressure Management #30 Ref 0 TAB Metoclopramide (Reglan) 10 Mg Tab 10 MG PO DIRECTED Take TIDAC and QHS Take 30 min before meals. gastroparesis #60 Ref 0 TAB Multiple Vitamins W/ Minerals (Multivitamin Adults) 1 Tab 1 TAB PO DAILY Nutritional Supplement Ref 0 TAB Oxycodone (Oxycodone) 5 Mg Cap 5 MG PO Q6H PRN PAIN #120 Ref 0 CAP Pantoprazole (Pantoprazole) 40 Mg Tab 40 MG PO DAILY Reflux #30 Ref 0 TAB Potassium Chloride ER (Potassium Chloride ER) 10 Meq Cap 10 MEQ PO DAILY Electrolyte Replacement #30 Ref 0 CAP Pravastatin (Pravastatin) 40 Mg Tab 40 MG PO DAILY Cholesterol Management #30 Ref 0 TAB Clair Keen MD Sep 25, 2016 11:44
[2016-09-25] MEDS ORDERED: POTASSIUM PHOSPHATE INJ 30 MMOL in SODIUM CHLOR 0.9% 250 ML INJ 250 ML IV ONE (11:45)
--- NOTE | 2016-09-25 11:47 | HHI.DCPOC ---
Discharge Care Plan Diagnosis: (1) Cellulitis of leg, left (2) Bacteremia Goals to Promote Your Health * To prevent worsening of your condition and complications * To maintain your health at the optimal level Directions to Meet Your Goals Take your medications as prescribed Follow your dietary instruction Follow activity as directed Keep your appointments as scheduled Take your immunizations and boosters as scheduled If your symptoms worsen call your PCP, if no PCP go to Urgent Care Center or Emergency Room Smoking is Dangerous to Your Health. Avoid second hand smoke Call the 24-hour hour crisis hotline for domestic abuse at Clair Keen MD Sep 25, 2016 11:47
[2016-09-25] MEDS ORDERED: POTASSIUM CHLORIDE 10 MEQ CONTROLLED RELEASE TAB PO ONE (12:00)
[2016-09-25] MEDS ORDERED: VANCOMYCIN INJ 1,600 MG in SODIUM CHLORID 0.9% 500 ML INJ 500 ML IV SCH (12:00)
[2016-09-25] MEDS ORDERED: AMOXICILLIN/CLAVULANATE K 875 MG TAB PO SCH (21:00)
[2016-09-26] MEDS ORDERED: PHARMACY ORDERED LAB XX ONE (11:45)
[2016-10-12] MEDS ORDERED: OXYC1CAP PO (14:52)
[2016-10-12] MEDS ORDERED: FENT25T T-DERMAL (14:52)
[2016-11-12] MEDS ORDERED: OXYC1CAP PO (11:31)
[2016-11-12] MEDS ORDERED: FENT25T T-DERMAL (11:31)
[2016-12-01] MEDS ORDERED: TIZA4TAB PO (14:58)
[2016-12-01] MEDS ORDERED: MEDR4PAK PO (14:58)
[2016-12-21] MEDS ORDERED: FENT25T T-DERMAL (13:18)
[2016-12-21] MEDS ORDERED: OXYC1CAP PO (13:18)
[2017-01-19] MEDS ORDERED: OXYC1CAP PO (10:37)
[2017-01-19] MEDS ORDERED: FENT25T T-DERMAL (10:37)
[2017-03-02] MEDS ORDERED: OXYC1CAP PO (10:47)
[2017-03-02] MEDS ORDERED: FENT25T T-DERMAL (10:47)
== END 2016-09-25 14:00 | disposition home or self-care (01) | DRG 872 ==
LOC: PHED 11:57 → PHEDA 14:30 → PH3B 16:34
PROVIDERS: ADMIT Hospitalist; ATTEND Hospitalist
DX: A41.9 Sepsis, unspecified organism (principal); E11.40 Type 2 diabetes mellitus with diabetic neuropathy, unspecified; L03.116 Cellulitis of left lower limb; I69.354 Hemiplegia and hemiparesis following cerebral infarction affecting left non-dominant side; I10 Essential (primary) hypertension; E78.1 Pure hyperglyceridemia; Z85.41 Personal history of malignant neoplasm of cervix uteri; E11.65 Type 2 diabetes mellitus with hyperglycemia; I89.0 Lymphedema, not elsewhere classified; G47.30 Sleep apnea, unspecified; M19.90 Unspecified osteoarthritis, unspecified site; I25.2 Old myocardial infarction; Z85.42 Personal history of malignant neoplasm of other parts of uterus
CPT/HCPCS: 76937; 80048; 80053; 80202; 82565; 82948; 83605; 85007; 85025; 85027; 87040; 87186; 87205; 96374; J1170; J1650; J1815; J2270; J2543; J3370; J7040; J7050

== ENCOUNTER 2016-12-12 14:17 | Inpatient (IN) | payer MEDICARE, OTHER ==
[2016-12-12] VITALS (37 sets, daily range): BP systolic 71–129; BP diastolic 35–69; PULSE 86–111; RESP 14–37; TEMP 97.9–98.7; O2SAT 91–99
[~2016-12-12] VITALS: Ht 153.7 cm; Wt 108.5 kg
[~2016-12-12 14:17] MED LIST changes: -BACT800T5 PO; -LACT PO; +MEDR4PAK PO; +TIZA4TAB PO
[2016-12-12] MEDS ORDERED: SODIUM CHLOR 0.9% 1000 ML INJ 300 ML IV ONE (14:41)
[2016-12-12] MEDS ORDERED: SODIUM CHLOR 0.9% 1000 ML INJ 1,000 ML IV ONE ×3 (14:41)
[2016-12-12] MEDS ORDERED: CEFEPIME INJ 2,000 MG in SODIUM CHLORIDE 0.9% INJ 100 ML IV ONE (14:45)
[2016-12-12] MEDS ORDERED: VANCOMYCIN INJ 1,550 MG in SODIUM CHLORID 0.9% 500 ML INJ 500 ML IV ONE (14:45)
--- NOTE | 2016-12-12 14:49 | PD ---
HPI Chief Complaint: Skin Problem Time Seen by Provider: 14:40 Travel History International Travel<30 days: No Contact w/Intl Traveler<30days: No Traveled to known affect area: No History of Present Illness HPI This is a 61-year-old female who has a history of prior stroke, lymphedema secondary to uterine cancer, and recurrent cellulitis in her left lower extremity presenting to the emergency department with 3 days of increasing swelling and pain in her left leg, constant, moderate severity, with no associated fevers or chills. She's been trying to apply topical antibiotic but it's been getting worse. She was admitted in September for the same thing. PFSH Past Medical History Hx Anticoagulant Therapy: Yes Arthritis: Yes Asthma: No Autoimmune Disease: No Blood Disorders: No Anxiety: No Depression: Yes Heart Rhythm Problems: No Cancer: Yes Cardiovascular Problems: Yes (LYMPHEDEMA) High Cholesterol: Yes Chemotherapy: No Chest Pain: Yes (2005) Congestive Heart Failure: No COPD: No Cerebrovascular Accident: Yes (2 CVA) Diabetes: Yes Patient Takes Glucophage: No Diminished Hearing: No Endocrine: Yes Gastrointestinal Disorders: Yes GERD: Yes Glaucoma: No Genitourinary: No Headaches: Yes Hepatitis: No Hiatal Hernia: No Heparin Induced Thrombocytopen: No Hypertension: Yes Immune Disorder: No Implanted Vascular Access Dvce: No Kidney Stones: No Musculoskeletal: Yes 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) Psychiatric: Yes Reproductive: Yes (Uterine CA) Respiratory: Yes Migraines: Yes (HISTORY OF ) Myocardial Infarction: Yes Radiation Therapy: No Renal Failure: No Seizures: No Sickle Cell Disease: No Sleep Apnea: Yes Thyroid Disease: No Ulcer: No ?: Not Menopausal: Yes : 1 Para: 1 Past Surgical History Abdominal Surgery: Yes (cholecsytecomty ) AICD: No Appendectomy: No Arteriovenous Shunt: No Cardiac Surgery: No Section: Yes (X 1) Cholecystectomy: Yes Ear Surgery: No Endocrine Surgery: No Eye Surgery: No Genitourinary Surgery: No Gynecologic Surgery: Yes (c section, total hysterectomy) Hysterectomy: Yes Insulin Pump: No Joint Replacement: Yes Neurologic Surgery: No Oral Surgery: No Pacemaker: No Thoracic Surgery: No Other Surgery: Yes (sinus surgery) Social History Alcohol Use: No Tobacco Use: No Substance Use: No Allergies-Medications (Allergen,Severity, Reaction): Coded Allergies: Biaxin (Verified Allergy, Severe, RASH, 4/2/17) Lipitor (Verified Allergy, Severe, TREMORS, MUSCLE PAIN, 12/12/16) Uncoded Allergies: PAPER TAPE (Allergy, Severe, Rash, 12/06/14) Reported Meds & Prescriptions Reported Meds & Active Scripts Active Duragesic Patch 72 HR (Fentanyl) 25 Mcg/Hr Patch 25 Mcg T-DERMAL Q72H Remove old patch when new one placed. Oxycodone (Oxycodone HCl) 5 Mg Cap 5 Mg PO Q6H PRN Potassium Chloride ER (Potassium Chloride) 10 Meq Cap 10 Meq PO DAILY Levemir Inj (Insulin Detemir) 1,000 unit/ 10 ML Vial 26 Units SQ HS 30 Days Reported Pravastatin 40 Mg Tab 40 Mg PO DAILY Lisinopril 5 Mg Tab 5 Mg PO DAILY Duloxetine DR (Duloxetine HCl) 30 Mg Capdr 30 Mg PO DAILY Pantoprazole (Pantoprazole Sodium) 40 Mg Tab 40 Mg PO DAILY Multivitamin Adults (Multiple Vitamins W/ Minerals) 1 Tab 1 Tab PO DAILY Gabapentin 800 Mg Tab 800 Mg PO HS Gabapentin 300 Mg Cap 300 Mg PO DAILY Calcium (Calcium Carbonate) 1,250 Mg Tab 1,250 Mg PO DAILY 1,250 mg calcium carbonate (500 mg elemental calcium) Aspirin 325 Mg Tab 325 Mg PO DAILY Glimepiride 2 Mg Tab 2 Mg PO DAILY Take with breakfast or first main meal Review of Systems Except as stated in HPI: all other systems reviewed are Neg Physical Exam Narrative GENERAL: Chronically ill-appearing, morbidly obese SKIN: Warmth and erythema involving the left lower extremity from the calf up to the mid thigh HEAD: Atraumatic. Normocephalic. EYES: Pupils equal and round. No injection or drainage. ENT: Dry mucous membranes. NECK: Trachea midline. CARDIOVASCULAR: Tachycardic. No murmur appreciated. RESPIRATORY: Clear to auscultation. Breath sounds equal bilaterally. GASTROINTESTINAL: Abdomen soft, non-tender, nondistended. MUSCULOSKELETAL: Left upper extremity is contracted. Severe lymphedema of the left lower extremity. NEUROLOGICAL: Awake and alert. No obvious cranial nerve deficits. 4 out of 5 strength in the left upper extremity, 4+ out of 5 strength left lower extremity PSYCHIATRIC: Appropriate mood and affect; insight and judgment normal. Data Data Last Documented VS Vital Signs Date Time Temp Pulse Resp B/P Pulse Ox O2 Delivery O2 Flow Rate FiO2 12/12/16 16:48 104 16 95/64 99 Nasal Cannula 2 12/12/16 15:45 98.0 Orders Complete Blood Count With Diff (12/12/16 14:41) Comprehensive Metabolic Panel (12/12/16 14:41) Prothrombin Time / Inr (Pt) (12/12/16 14:41) Act Partial Throm Time (Ptt) (12/12/16 14:41) Lactic Acid Sepsis Protocol (12/12/16 14:41) Urinalysis - C+S If Indicated (12/12/16 14:41) Blood Culture (12/12/16 14:41) Chest, Single Ap (12/12/16 14:41) Blood Glucose (12/12/16 14:41) Ecg Monitoring (12/12/16 14:41) Iv Access Insert/Monitor (12/12/16 14:41) Oximetry (12/12/16 14:41) Oxygen Administration (12/12/16 14:41) Sodium Chlor 0.9% 1000 Ml Inj (Ns 1000 M (12/12/16 14:41) Sodium Chlor 0.9% 1000 Ml Inj (Ns 1000 M (12/12/16 14:41) Sodium Chlor 0.9% 1000 Ml Inj (Ns 1000 M (12/12/16 14:41) Sodium Chlor 0.9% 1000 Ml Inj (Ns 1000 M (12/12/16 14:41) Vancomycin Inj (Vancomycin Inj) (12/12/16 14:45) Cefepime Inj (Maxipime Inj) (12/12/16 14:45) Norepinephrine-Dextrose Drip (Levophed-D (12/12/16 15:45) Terbutaline Inj (Brethine Inj) (12/12/16 15:45) Urinary Catheter Insert/Apply (12/12/16 16:28) Chest, Single Ap (12/12/16 ) Admit Order (Ed Use Only) (12/12/16 16:48) Labs Laboratory Tests Test 12/12/16 12/12/16 12/12/16 14:40 14:49 16:45 White Blood Count 30.3 TH/MM3 Red Blood Count 4.72 MIL/MM3 Hemoglobin 13.7 GM/DL Hematocrit 40.8 % Mean Corpuscular Volume 86.3 FL Mean Corpuscular Hemoglobin 29.0 PG Mean Corpuscular Hemoglobin 33.6 % Concent Red Cell Distribution Width 12.8 % Platelet Count 299 TH/MM3 Mean Platelet Volume 8.8 FL Neutrophils (%) (Auto) 83.6 % Lymphocytes (%) (Auto) 6.7 % Monocytes (%) (Auto) 6.0 % Eosinophils (%) (Auto) 0.4 % Basophils (%) (Auto) 3.3 % Neutrophils # (Auto) 25.4 TH/MM3 Lymphocytes # (Auto) 2.0 TH/MM3 Monocytes # (Auto) 1.8 TH/MM3 Eosinophils # (Auto) 0.1 TH/MM3 Basophils # (Auto) 1.0 TH/MM3 CBC Comment AUTO DIFF Differential Total Cells 100 Counted Neutrophils % (Manual) 79 % Band Neutrophils % 5 % Lymphocytes % 8 % Monocytes % 8 % Neutrophils # (Manual) 25.5 TH/MM3 Differential Comment FINAL DIFF MANUAL Prothrombin Time 10.3 SEC Prothromb Time International 0.9 RATIO Ratio Activated Partial 32.7 SEC Thromboplast Time Sodium Level 134 MEQ/L Potassium Level 4.5 MEQ/L Chloride Level 93 MEQ/L Carbon Dioxide Level 30.1 MEQ/L Anion Gap 11 MEQ/L Blood Urea Nitrogen 36 MG/DL Creatinine 2.00 MG/DL Estimat Glomerular Filtration 25 ML/MIN Rate Random Glucose 215 MG/DL Calcium Level 10.0 MG/DL Total Bilirubin 0.5 MG/DL Aspartate Amino Transf 73 U/L (AST/SGOT) Alanine Aminotransferase 123 U/L (ALT/SGPT) Alkaline Phosphatase 213 U/L Total Protein 7.8 GM/DL Albumin 3.1 GM/DL Lactic Acid Level 2.1 mmol/L Urine Collection Type CATH Urine Color YELLOW Urine Turbidity CLEAR Urine pH 6.0 Urine Specific [place] 1.007 Urine Protein NEG mg/dL Urine Glucose (UA) NEG mg/dL Urine Ketones NEG mg/dL Urine Occult Blood NEG Urine Nitrite NEG Urine Bilirubin NEG Urine Leukocyte Esterase NEG Urine Amorphous Sediment FEW Urine Hyaline Casts 0-2 /lpf Microscopic Urinalysis Comment CULT NOT INDICATED MDM Medical Decision Making Medical Screen Exam Complete: Yes Emergency Medical Condition: Yes Interpretation(s) Afebrile, tachycardic, hypotensive Leukocytosis with 83% neutrophils Creatinine is 2 which is acute from prior New transaminitis Lactic acid is 2.1 Urinalysis: Negative for infection Chest x-ray: No consolidation Differential Diagnosis Cellulitis, sepsis, septic shock, urinary tract infection, pneumonia Narrative Course This is a 61-year-old female who presents to the emergency department with cellulitis of her left lower extremity which has occurred in the past. On arrival she was hypotensive and tachycardic area she was given 30 cc/kg of normal saline, cultures were obtained and she was given broad-spectrum antibiotics. Despite 2 L of IV hydration her blood pressure did not improve. She was started on Levophed. A central line was placed. Patient was admitted to the intensive care unit for further management of septic shock. Critical Care Narrative Aggregate critical care time was 45 minutes. Time to perform other separately billable procedures was not included in the critical care time. My time did not include minutes spent treating any other patients simultaneously or on activities that did not directly contribute to the patient's treatment. The services I provided to this patient were to treat and/or prevent clinically significant deterioration that could result in: Disability, I provided critical care services requiring my management, as noted below: Chart data review, documentation time, medication orders and management, vital sign assessments/reviewing monitor data, ordering and reviewing lab tests, ordering and interpreting/reviewing x-rays and diagnostic studies, care of the patient and discussion of the patient with the admitting physicians. Procedures Procedure Narrative CENTRAL VENOUS LINE: The site was prepped with ChloraPrep and sterilely draped. It was infiltrated with 1% lidocaine plain. The deep vein was cannulated using normal Seldinger technique. A triple lumen central line was placed in the right internal jugular site and secured with simple interrupted suture. The site was sterilely dressed. The patient tolerated the procedure well. Physician Communication Physician Communication Discussed with Dr. Low Diagnosis Primary Impression: Septic shock Admitting Information Admitting Physician Requests: Admit Jessi Kim MD Dec 12, 2016 14:49
[2016-12-12 15:05] LABS: AUTOMATED NEUTROPHIL # 25.4 TH/MM3 (1.8-7.7); BASOPHIL % 3.3 % (0.0-2.0); EOSINOPHIL # 0.1 TH/MM3 (0-0.4); EOSINOPHIL % 0.4 % (0.0-4.0); HEMATOCRIT 40.8 % (35.0-46.0); LYMPH % 6.7 % (9.0-44.0); MEAN CELL VOLUME 86.3 FL (80.0-100.0); MEAN CORPUSCULAR HGB CONC 33.6 % (32.0-36.0); NEUT % 83.6 % (16.0-70.0); PLATELET COUNT 299 TH/MM3 (150-450); RED BLOOD COUNT 4.72 MIL/MM3 (4.00-5.30); RED CELL DISTRIBUTION WIDTH 12.8 % (11.6-17.2); WHITE BLOOD COUNT 30.3 TH/MM3 (4.0-11.0)
[2016-12-12 15:13] LABS: HEMO FLAGS AUTO DIFF
[2016-12-12 15:15] LABS: CHLORIDE 93 MEQ/L (98-107); POTASSIUM 4.5 MEQ/L (3.5-5.1); SODIUM (NA) 134 MEQ/L (136-145)
[2016-12-12 15:19] LABS: ANION GAP 11 MEQ/L (5-15); APTT (PATIENT) 32.7 SEC (24.3-30.1); BICARBONATE 30.1 MEQ/L (21.0-32.0); BLOOD UREA NITROGEN 36 MG/DL (7-18); INTERNATIONAL NORMALIZED RATIO 0.9 RATIO; PROTHROMBIN TIME - PATIENT 10.3 SEC (9.8-11.6)
[2016-12-12 15:22] LABS: ALT (GPT) 123 U/L (10-53); AST (GOT) 73 U/L (15-37); GLOMERULAR FILTRATION RATE 25 ML/MIN (>89)
[2016-12-12 15:24] LABS: TOTAL BILIRUBIN ADULT 0.5 MG/DL (0.2-1.0)
[2016-12-12 15:25] LABS: ALKALINE PHOSPHATASE 213 U/L (45-117)
[2016-12-12] MEDS ORDERED: TERBUTALINE INJ 1 MG/ML AMP SQ PRN (15:45)
[2016-12-12] MEDS ORDERED: NOREPINEPHRINE-DEXTROSE DRIP 250 ML IV SCH (15:45)
[2016-12-12 15:48] LABS: BANDS 5 % (0-6); NEUTROPHIL # MANUAL DIFF 25.5 TH/MM3 (1.8-7.7); POLYS (SEG NEUTROPHILS) 79 % (16-70); SCAN/DIFF FINAL DIFF MANUAL; WBC DIFF SAMPLE 100
--- NOTE | 2016-12-12 16:11 | RADHPO ---
EXAM DATE/TIME: 12/12/2016 15:08 [facility] COMPARISON: CHEST SINGLE AP, March 14, 2016, 2:58. INDICATIONS : Fever, left lower leg cellulitis MEDICAL HISTORY : Diabetes mellitus type II. SURGICAL HISTORY : None. ENCOUNTER: Initial ACUITY: 3 days PAIN SCORE: 0/10 LOCATION: Bilateral chest FINDINGS: A single view of the chest demonstrates the lungs to be symmetrically aerated without evidence of mas s, infiltrate or effusion. The cardiomediastinal contours are unremarkable. Osseous structures are intact. CONCLUSION: 1. Minimal basilar atelectasis. No effusion or pneumothorax. Eb Beck MD on December 12, 2016 at 16:09 Board Certified Radiologist. This report was verified electronically.
[2016-12-12 16:59] LABS: BLOOD, URINE NEG (NEG); GLUCOSE,URINE NEG (NEG); KETONE, URINE NEG (NEG); NITRITE,URINE NEG (NEG)
[2016-12-12 16:59] LABS: LACTIC ACID GHOST NOT REPORTABLE
[2016-12-12] MEDS ORDERED: Vancomycin Consult Pharmacy 1 EA OTHER SCH (17:00)
[2016-12-12] MEDS ORDERED: DEXTROSE 50% IN WATER 50 ML VIAL(D50) IV PUSH PRN (17:00)
[2016-12-12 17:01] LABS: METHOD OF COLLECTION CATH; URINE COLOR YELLOW (YELLW/STRAW)
[2016-12-12 17:04] LABS: COMMENT (UR) CULT NOT INDICATED; CULTURE IF INDICATED CULT NOT INDICATED; HYALINE CAST, URINE 0-2 /lpf (RARE)
--- NOTE | 2016-12-12 17:12 | RADHPO ---
EXAM DATE/TIME: 12/12/2016 16:55 [facility] COMPARISON: CHEST SINGLE AP, December 12, 2016, 15:08. INDICATIONS : Post central line placement MEDICAL HISTORY : Diabetes mellitus type II. SURGICAL HISTORY : None. ENCOUNTER: Subsequent ACUITY: 1 day PAIN SCORE: 0/10 LOCATION: Right chest FINDINGS: A single view of the chest demonstrates right central line in superior vena cava. Minimal basilar ate lectasis. No effusion. No pneumothorax. CONCLUSION: 1. Basilar atelectasis. Right central line in superior vena cava without pneumothorax. Eb Beck MD on December 12, 2016 at 17:08 Board Certified Radiologist. This report was verified electronically.
--- NOTE | 2016-12-12 17:14 | HHI.HP ---
HPI Service Critical Care Medicine Primary Care Physician Non-Staff Admission Diagnosis septic shock Diagnosis: Chief Complaint: fatigue Travel History International Travel<30 Days: No Contact w/Intl Traveler <30 Da: No Traveled to Known Affected Are: No History of Present Illness This is a 61yF with history of obesity, diabetes, LE lymphedema and recurrent cellulitis. she presents with 3 days of increased left LE redness, swelling, and pain. This is the same spot she usually gets cellulitis. in the ER she was found to be hypotensive which was not responsive to ivf. she was given 3L NS iv and then a right IJ central line was placed and she was started on norepinephrine. her laboratory values are pertinent for a lactate of 2.0, elevated LFTs, leukocytosis of 30, NAHUN Cr 2.0. Critical care medicine is consulted to evaluate and manage septic shock from LE cellulitis. Review of Systems Respiratory: DENIES: Cough, Sputum production, Shortness of breath Cardiovascular: COMPLAINS OF: Lower Extremity Edema, DENIES: Chest pain, Palpitations, Dyspnea on Exertion Gastrointestinal: DENIES: Abdominal pain, Constipation, Diarrhea, Nausea, Vomiting Neurologic: DENIES: Headache, Localized weakness Past Family Social History Allergies: Coded Allergies: Biaxin (Verified Allergy, Severe, RASH, 12/12/16) Lipitor (Verified Allergy, Severe, TREMORS, MUSCLE PAIN, 12/12/16) Uncoded Allergies: PAPER TAPE (Allergy, Severe, Rash, 12/06/14) Past Medical History Arthritis Depression Lower extremity lymphedema Hypercholesterolemia Prior CVA 2 Insulin-dependent diabetes GERD Headaches Hypertension History of uterine cancer, in remission History of migraines Sleep apnea Past Surgical History Cholecystectomy delivery Hysterectomy Sinus surgery Reported Medications Tizanidine (Tizanidine HCl) 4 Mg Tab 4 Mg PO BID Medrol Dosepak (Methylprednisolone) 4 Mg Dspk 4 Mg PO DIRECTED Per Pharmacist direction Duragesic Patch 72 HR (Fentanyl) 25 Mcg/Hr Patch 25 Mcg T-DERMAL Q72H Remove old patch when new one placed. Oxycodone (Oxycodone HCl) 5 Mg Cap 5 Mg PO Q6H PRN Augmentin (Amoxicillin-Clavulanate) 875-125 mg Tab 875 Mg PO BID not for use in CrCl <30 ml/min. Potassium Chloride ER (Potassium Chloride) 10 Meq Cap 10 Meq PO DAILY Reglan (Metoclopramide HCl) 10 Mg Tab 10 Mg PO DIRECTED Take TIDAC and QHS Take 30 min before meals. Levemir Inj (Insulin Detemir) 1,000 unit/ 10 ML Vial 26 Units SQ HS 30 Days Pravastatin 40 Mg Tab 40 Mg PO DAILY Lisinopril 5 Mg Tab 5 Mg PO DAILY Baclofen 10 Mg Tab 30 Mg PO HS Duloxetine DR (Duloxetine HCl) 30 Mg Capdr 30 Mg PO DAILY Pantoprazole (Pantoprazole Sodium) 40 Mg Tab 40 Mg PO DAILY Multivitamin Adults (Multiple Vitamins W/ Minerals) 1 Tab 1 Tab PO DAILY Gabapentin 800 Mg Tab 800 Mg PO HS Gabapentin 300 Mg Cap 300 Mg PO DAILY Lasix (Furosemide) 20 Mg Tab 20 Mg PO DAILY Calcium (Calcium Carbonate) 1,250 Mg Tab 1,250 Mg PO DAILY 1,250 mg calcium carbonate (500 mg elemental calcium) Aspirin 325 Mg Tab 325 Mg PO DAILY Glimepiride 2 Mg Tab 2 Mg PO DAILY Take with breakfast or first main meal Colace (Docusate Sodium) 100 Mg Cap 100 Mg PO BID PRN Active Ordered Medications See MAR Family History Reviewed with the patient and found to be noncontributory to her acute illness. Social History denies etoh, tob, doa. Physical Exam Vital Signs Vital Signs Date Time Temp Pulse Resp B/P Pulse Ox O2 Delivery O2 Flow Rate FiO2 12/12/16 16:57 95 16 102/62 98 Nasal Cannula 2 12/12/16 16:48 104 16 95/64 99 Nasal Cannula 2 12/12/16 16:22 89 16 100/65 99 Nasal Cannula 2 12/12/16 15:45 98.0 96 16 71/44 99 Nasal Cannula 2 12/12/16 15:31 107 16 71/44 99 Nasal Cannula 2 12/12/16 15:27 102 16 81/35 99 Nasal Cannula 2 12/12/16 15:22 105 16 78/45 99 Nasal Cannula 2 12/12/16 14:55 92 Nasal Cannula 2 12/12/16 14:53 16 92 Room Air 12/12/16 14:42 16 12/12/16 14:36 87/48 12/12/16 14:25 97.9 102 18 87/48 91 Laboratory Laboratory Tests Test 12/12/16 12/12/16 12/12/16 14:40 14:49 16:45 White Blood Count 30.3 Red Blood Count 4.72 Hemoglobin 13.7 Hematocrit 40.8 Mean Corpuscular Volume 86.3 Mean Corpuscular Hemoglobin 29.0 Mean Corpuscular Hemoglobin 33.6 Concent Red Cell Distribution Width 12.8 Platelet Count 299 Mean Platelet Volume 8.8 Neutrophils (%) (Auto) 83.6 Lymphocytes (%) (Auto) 6.7 Monocytes (%) (Auto) 6.0 Eosinophils (%) (Auto) 0.4 Basophils (%) (Auto) 3.3 Neutrophils # (Auto) 25.4 Lymphocytes # (Auto) 2.0 Monocytes # (Auto) 1.8 Eosinophils # (Auto) 0.1 Basophils # (Auto) 1.0 CBC Comment AUTO DIFF Differential Total Cells 100 Counted Neutrophils % (Manual) 79 Band Neutrophils % 5 Lymphocytes % 8 Monocytes % 8 Neutrophils # (Manual) 25.5 Differential Comment FINAL DIFF MANUAL Prothrombin Time 10.3 Prothromb Time International 0.9 Ratio Activated Partial 32.7 Thromboplast Time Sodium Level 134 Potassium Level 4.5 Chloride Level 93 Carbon Dioxide Level 30.1 Anion Gap 11 Blood Urea Nitrogen 36 Creatinine 2.00 Estimat Glomerular Filtration 25 Rate Random Glucose 215 Calcium Level 10.0 Total Bilirubin 0.5 Aspartate Amino Transf 73 (AST/SGOT) Alanine Aminotransferase 123 (ALT/SGPT) Alkaline Phosphatase 213 Total Protein 7.8 Albumin 3.1 Lactic Acid Level 2.1 Urine pH 6.0 Urine Protein NEG Urine Glucose (UA) NEG Urine Ketones NEG Urine Occult Blood NEG Urine Nitrite NEG Urine Bilirubin NEG Urine Leukocyte Esterase NEG Date/Time Procedure Status Source Growth 12/12/16 14:49 Aerobic Blood Culture Received Blood Peripheral Pending 12/12/16 14:49 Anaerobic Blood Culture Received Blood Peripheral Pending Result Diagram: 12/12/16 1440 12/12/16 1440 Assessment and Plan Assessment and Plan Assessment: This is a 61yF with history of chronic LE lymphedema who now presents with LE cellulitis and septic shock. She remains critically ill in multi-organ system failure, including shock liver, acute kidney injury, lactic acidosis. We will continue vasopressor support to help maintain end-organ perfusion and monitor her in the ICU. Abx and IVF. Plan by systems: Neurologic: Chronic pain Hold her gabapentin given low GFR Dilaudid as needed for pain --continue home fentanyl patch Respiratory: Atelectasis Objective sleep apnea Wean oxygen by nasal cannula for goal SPO2 greater than 92% Incentive spirometer and aggressive pulmonary toilet Out of bed to chair PT consult Cardiovascular: Septic shock History of Hypertension Continue norepinephrine for goal map greater than 65 IV fluid resuscitation ongoing. Completely normal saline bolus. We'll start maintenance fluids at 150 cc an hour Hold home antihypertensives in the setting of septic shock Renal: Acute kidney injury Likely secondary to prerenal from shock Hood with q1h urine outputs -- Strict I/Os FEN/GI: Acute intravascular volume depletion Obesity Shock Liver Nursing bedside swallow evaluation and advance diet as tolerated IV fluids as above Daily BMP, mag --trend LFTs Heme/ID: Lower extremity cellulitis Septic shock Continue beta [place] [facility] dosing Continue cefepime 1 g IV every 8, we'll ask pharmacy to adjust for renal injury Follow-up blood cultures Daily CBC Endocrine: Diabetes Hyperglycemia of critical illness -- SSI, before meals at bedtime, medium scale Hold home insulin Prophylaxis: GI Prophylaxis Home Protonix by mouth DVT Prophylaxis -- SCDs Subcutaneous heparin Lines: Peripheral IVs 4/2 right IJ triple-lumen catheter Hood Dispo: Admitted to the ICU. She remains critically ill This patient remains critically ill with one or more organ systems which are or may become a threat to life. I have spent in excess of 44 minutes discontinuously in the care and management of this patient. This time is exclusive of procedures, and includes, but is not limited to, evaluation of the patient, review of the medical record, discussions with family, consultants, nursing staff, or respiratory therapy, and documentation in the medical record. Code Status Full Code Yaw Low MD Dec 12, 2016 17:14
[2016-12-12] MEDS ORDERED: MISCELLANEOUS NURSING INFORMATION XX SCH (17:15)
[2016-12-12] MEDS ORDERED: CHLORHEXIDINE GLUCONATE 2 % 1 PACK (2 CLOTHS) TOP PRN (17:15)
[2016-12-12] MEDS ORDERED: SODIUM CHLORIDE 0.9% FLUSH 10 ML FLUSH IV FLUSH PRN (17:15)
[2016-12-12] MEDS ORDERED: RESP: ALBUTEROL 2.5 MG/IPRATROPIUM 0.5 MG NEB (PRN) INH (17:15)
[2016-12-12] MEDS: SODIUM CHLOR 0.9% 1000 ML INJ 1,000 ML IV SCH ×2 (17:35→23:40)
[2016-12-12] MEDS ORDERED: fentaNYL 25 MCG/HR PATCH T-DERMAL SCH (18:00)
[2016-12-12] MEDS: HEPARIN SODIUM - SQ 10,000 UNITS/ML VIAL SQ SCH (18:54)
[2016-12-12] MEDS: HYDROmorphone HCL PF 1 MG/ML VIAL IV PRN (19:00)
[2016-12-12] MEDS: SODIUM CHLORIDE 0.9% FLUSH 10 ML FLUSH IV FLUSH SCH (21:00)
[2016-12-12] MEDS: DOCUSATE SODIUM 50 MG/SENNA 8.6 MG TAB PO SCH (21:03)
[2016-12-12] MEDS: CEFEPIME INJ 1,000 MG in SODIUM CHLORIDE 0.9% INJ 100 ML IV SCH (21:04)
[2016-12-12] MEDS: INSULIN NovoLIN REGULAR SUPPLEMENTAL SCALE SQ SCH (21:57)
[2016-12-13] VITALS (43 sets, daily range): BP systolic 78–136; BP diastolic 46–71; PULSE 82–99; RESP 10–21; TEMP 97.7–99.2; O2SAT 90–99
[2016-12-13] MEDS: INSULIN NovoLIN REGULAR SUPPLEMENTAL SCALE SQ SCH ×5 (03:37→20:46)
[2016-12-13] MEDS: HEPARIN SODIUM - SQ 10,000 UNITS/ML VIAL SQ SCH ×3 (03:37→18:29)
[2016-12-13] MEDS: CHLORHEXIDINE GLUCONATE 2 % 1 PACK (2 CLOTHS) TOP SCH (03:38)
[2016-12-13] MEDS: CEFEPIME INJ 1,000 MG in SODIUM CHLORIDE 0.9% INJ 100 ML IV SCH ×3 (05:26→20:26)
[2016-12-13 05:51] LABS: HEMATOCRIT 35.7 % (35.0-46.0); MEAN CELL VOLUME 86.3 FL (80.0-100.0); MEAN CORPUSCULAR HEMOGLOBIN 28.7 PG (27.0-34.0); MEAN CORPUSCULAR HGB CONC 33.2 % (32.0-36.0); PLATELET COUNT 285 TH/MM3 (150-450); RED BLOOD COUNT 4.14 MIL/MM3 (4.00-5.30); RED CELL DISTRIBUTION WIDTH 12.5 % (11.6-17.2); REVIEW FLAG FINAL; WHITE BLOOD COUNT 15.9 TH/MM3 (4.0-11.0)
[2016-12-13 06:14] LABS: BICARBONATE 29.4 MEQ/L (21.0-32.0); INDIRECT BILIRUBIN 0.2 MG/DL (0.0-0.8); TOTAL BILIRUBIN ADULT 0.3 MG/DL (0.2-1.0)
[2016-12-13] MEDS ORDERED: MAGNESIUM OXIDE 400 MG TAB PO PRN (06:30)
[2016-12-13] MEDS ORDERED: POTASSIUM PHOSPHATE MONOBASIC 500 MG TAB PO PRN (06:30)
[2016-12-13] MEDS ORDERED: POTASSIUM CHLOR 40 MEQ PREMIX 100 ML IV PRN ×2 (06:30)
[2016-12-13] MEDS ORDERED: POTASSIUM PHOSPHATE INJ 30 MMOL in SODIUM CHLOR 0.9% 250 ML INJ 250 ML IV PRN (06:30)
[2016-12-13] MEDS ORDERED: POTASSIUM PHOSPHATE MONOBASIC 500 MG TAB PO/TUBE PRN (06:30)
[2016-12-13] MEDS ORDERED: MAGNESIUM SULFATE INJ 2 GM in SODIUM CHLORIDE 0.9% INJ 96 ML IV PRN (06:30)
[2016-12-13] MEDS ORDERED: SODIUM PHOSPHATE INJ 30 MMOL in SODIUM CHLOR 0.9% 250 ML INJ 240 ML IV PRN (06:30)
[2016-12-13] MEDS ORDERED: POTASSIUM CHLOR 20 MEQ PREMIX 100 ML IV PRN ×2 (06:30)
[2016-12-13] MEDS ORDERED: MAGNESIUM SULFATE INJ 4 GM in SODIUM CHLORIDE 0.9% INJ 92 ML IV PRN (06:30)
--- NOTE | 2016-12-13 06:33 | HHI.CCPN ---
Subjective Remarks/Hospital Course Hospital Course: This is a 61yF with history of obesity, diabetes, LE lymphedema and recurrent cellulitis. she presents with 3 days of increased left LE redness, swelling, and pain. This is the same spot she usually gets cellulitis. in the ER she was found to be hypotensive which was not responsive to ivf. she was given 3L NS iv and then a right IJ central line was placed and she was started on norepinephrine. her laboratory values are pertinent for a lactate of 2.0, elevated LFTs, leukocytosis of 30, NAHUN Cr 2.0. Critical care medicine is consulted to evaluate and manage septic shock from LE cellulitis. Subjective: 12/13: clinically improving. remains on Levo at 2mcg/min. otherwise uop adequate. all her end-organs are improving. Her lactate cleared. she subjectively feels good today. Objective Vital Signs Date Time Temp Pulse Resp B/P Pulse Ox O2 Delivery O2 Flow Rate FiO2 12/13/16 06:00 96 12/13/16 03:01 16 103/52 96 12/13/16 00:01 99.2 12/12/16 20:15 Nasal Cannula 2.00 Intake and Output 12/12/16 12/12/16 12/13/16 08:00 16:00 00:00 Intake Total 4600 ml 1140 ml Output Total 1950 ml Balance 4600 ml -810 ml Result Diagram: 12/13/16 0530 12/13/16 0530 Objective Remarks gen: obese female, lying in bed, home CPAP in place heent: NC. AT. PERRL. mucous membranes moist neck: no jvd. trachea midline chest: clear to ausculation. unlabored. cv: normal rate, irregularly irregular rhythm. no appreciable murmur abd: obese, soft, nontender, nondistended. extr: LLE warm, erythematous, tender. no change in distribution of the swelling or redness from yesterday neuro: RASS 0. oriented x 3. follows commands. A/P Assessment and Plan Assessment: This is a 61yF with history of chronic LE lymphedema who now presents with LE cellulitis and septic shock. Her shock is resolving, although she remains on vasopressors. Her end organ damage is improving as well. We will continue abx. wean pressors. if she continues to improve on this pathway, she could likely go to the floor late this afternoon. Plan by systems: Neurologic: Chronic pain restart home gabapentin. Dilaudid as needed for pain --continue home fentanyl patch Respiratory: Atelectasis Objective sleep apnea Wean oxygen by nasal cannula for goal SPO2 greater than 92% Incentive spirometer and aggressive pulmonary toilet Out of bed to chair PT consult Cardiovascular: Septic shock History of Hypertension New-onset atrial fibrillation Continue norepinephrine for goal map greater than 65 decrease NS to 75cc/hr. Hold home antihypertensives in the setting of septic shock --tsh and bnp normal. trop negative. --2gm mgso4 today. --2d echo --will likely need outpatient cardiology follow up. Renal: Acute kidney injury- resolved. Likely secondary to prerenal from shock Hood -- Strict I/Os FEN/GI: Acute intravascular volume depletion- resolving. Obesity Shock Liver- resolving. advance diet to diabetic diet as tolerated. IV fluids as above Daily BMP, mag --trend LFTs Heme/ID: Lower extremity cellulitis Septic shock Continue vancomycin pharmacy dosing Continue cefepime Follow-up blood cultures Daily CBC Endocrine: Diabetes Hyperglycemia of critical illness -- SSI, before meals at bedtime, medium scale Hold home insulin Prophylaxis: GI Prophylaxis Home Protonix by mouth DVT Prophylaxis -- SCDs Subcutaneous heparin Lines: Peripheral IVs 4/2 right IJ triple-lumen catheter Hood Dispo: remain in the ICU while on vasopressors. she could go to the floor if she continues to improve on pathway by this afternoon. Yaw Low MD Dec 13, 2016 06:32
[2016-12-13] MEDS: MAGNESIUM SULFATE 1 GM PREMIX 100 ML IV SCH ×2 (10:34→10:42)
[2016-12-13] MEDS: SODIUM CHLORIDE 0.9% FLUSH 10 ML FLUSH IV FLUSH SCH ×2 (10:34→20:27)
[2016-12-13] MEDS: PANTOPRAZOLE SOD 40 MG DELAYED RELEASE TAB PO SCH (10:35)
[2016-12-13] MEDS: ASPIRIN 325 MG TAB PO SCH (10:35)
[2016-12-13] MEDS: DULoxetine HCl DR 30 MG CAP PO SCH (10:35)
[2016-12-13] MEDS: GABAPENTIN 300 MG CAP PO SCH (10:36)
[2016-12-13] MEDS: DOCUSATE SODIUM 50 MG/SENNA 8.6 MG TAB PO SCH ×2 (10:36→20:26)
[2016-12-13] MEDS: SODIUM CHLOR 0.9% 1000 ML INJ 1,000 ML IV SCH (10:37)
--- NOTE | 2016-12-13 10:39 | EKG ---
Date Performed: 12/12/2016 Time Performed: 17:32:44 PTAGE: 61 years EKG: Atrial fibrillation with rapid ventricular response rSr'(V1) - probable normal variant Ante rior T wave changes are nonspecific Low QRS voltages in precordial leads Abnormal ECG PREVIOUS TRACING : 03/14/2016 05.13 DOCTOR: Monroe Syed Interpretating Date/Time 12/13/2016 10:35:09
--- NOTE | 2016-12-13 14:11 | EC ---
Study Study Date:12/13/2016 STUDY CONCLUSIONS SUMMARY - Left ventricle: The cavity size was normal. Wall thickness was normal. Systolic function was normal. The estimated ejection fraction was in the range of 55% to 60%. Wall motion was normal; there were no regional wall motion abnormalities. - Aortic valve: Valve area: 1.7cm^2(VTI). Valve area: 1.51cm^2 (Vmax). - Mitral valve: Mildly calcified annulus. If LV function is below 40, please consider prescribing an ACEI or ARB or document rationale for non-use. PROCEDURE DATA STUDY STATUS: Elective. Procedure: Transthoracic echocardiography. Image quality was suboptimal. Scanning was performed from the parasternal, apical, and subcostal acoustic windows. Study completion: The patient tolerated the procedure well. Transthoracic echocardiography. M-mode, complete 2D, complete spectral Doppler, and color Doppler. Patient status: Inpatient. CARDIAC ANATOMY LEFT VENTRICLE: The cavity size was normal. Wall thickness was normal. Systolic function was normal. The estimated ejection fraction was in the range of 55% to 60%. Wall motion was normal; there were no regional wall motion abnormalities. AORTIC VALVE: Trileaflet; normal thickness leaflets. Doppler: Transvalvular velocity was within the normal range. There was no stenosis. No regurgitation. Valve area: 1.7cm^2(VTI). Valve area: 1.51cm^2 (Vmax). Mean gradient: 6mm Hg (S). Peak gradient: 12mm Hg (S). AORTA: Aortic root: The aortic root was normal in size. MITRAL VALVE: Mildly calcified annulus. Doppler: Transvalvular velocity was within the normal range. There was no evidence for stenosis. Trace regurgitation. LEFT ATRIUM: The atrium was normal in size. RIGHT VENTRICLE: The cavity size was normal. Wall thickness was normal. PULMONIC VALVE: Doppler: Transvalvular velocity was within the normal range. There was no evidence for stenosis. No regurgitation. TRICUSPID VALVE: Structurally normal valve. Doppler: Transvalvular velocity was within the normal range. Trace regurgitation. PULMONARY ARTERY: The main pulmonary artery was normal-sized. Systolic pressure was within the normal range. RIGHT ATRIUM: The atrium was normal in size. PERICARDIUM: There was no pericardial effusion. SYSTEMIC VEINS: Inferior vena cava: The vessel was normal in size. BASIC MEASUREMENTS ADULT Normal Left ventricle LV internal dimension, ED, chordal level, *40.3 mm 43-52 PLAX LV internal dimension, ES, chordal level, 29.7 mm 23-38 PLAX Fractional shortening, chordal level, PLAX *26 % >29 LV posterior wall thickness, ED 8.46 mm IVS/LVPW ratio, ED *1.45 <1.3 Ventricular septum Septal thickness, ED 12.3 mm Aortic valve Leaflet separation 20 mm 15-26 Right ventricle RV internal dimension, ED, PLAX 30.1 mm 19-38 BASIC MEASUREMENTS ADULT Normal Aortic valve Leaflet separation 20 mm 15-26 Aorta Root diameter, ED 33 mm 20-37 Left atrium Anterior-posterior dimension, ES 34 mm 19-40 LA/aortic root ratio 1.03 DOPPLER MEASUREMENTS ADULT Normal Main pulmonary artery Pressure, S 29 mm Hg =30 Aortic valve Peak velocity, S 175 cm/s Mean velocity, S 110 cm/s VTI, S 32.1 cm Mean gradient, S 6 mm Hg Peak gradient, S 12 mm Hg Valve area, VTI 1.7 cm^2 Valve area, Vmax 1.51 cm^2 Tricuspid valve Regurgitant peak velocity 220 cm/s Peak RV-RA gradient, S 19 mm Hg Maximal regurgitant velocity 220 cm/s Systemic veins Estimated CVP 10 mm Hg Right ventricle RV pressure, S 29 mm Hg <30 LEGEND: Mean values are shown as u=mean value. Asterisk (*) adams values outside specified normal range. Amended Darek Ray [id number]
[2016-12-13] MEDS: GABAPENTIN 400 MG CAP PO SCH (20:26)
[2016-12-13] MEDS: HYDROmorphone HCL PF 1 MG/ML VIAL IV PRN (20:49)
[2016-12-13] MEDS ORDERED: fentaNYL 25 MCG/HR PATCH T-DERMAL SCH (21:00)
[2016-12-13] MEDS: NYSTATIN 100,000 U/GM PWD 15 GM BTL TOPICAL SCH (22:29)
[2016-12-13] MEDS: fentaNYL 25 MCG/HR PATCH T-DERMAL SCH (22:29)
[2016-12-14] VITALS (8 sets, daily range): BP systolic 92–126; BP diastolic 68–77; PULSE 78–102; RESP 14–18; TEMP 96.5–98.4; O2SAT 94–98
[2016-12-14] MEDS: HEPARIN SODIUM - SQ 10,000 UNITS/ML VIAL SQ SCH ×3 (03:01→18:00)
[2016-12-14] MEDS: INSULIN NovoLIN REGULAR SUPPLEMENTAL SCALE SQ SCH ×5 (03:04→21:05)
[2016-12-14] MEDS: CHLORHEXIDINE GLUCONATE 2 % 1 PACK (2 CLOTHS) TOP SCH (03:05)
[2016-12-14] MEDS ORDERED: VANCOMYCIN INJ 1,300 MG in SODIUM CHLORID 0.9% 500 ML INJ 500 ML IV SCH (04:00)
[2016-12-14] MEDS: NYSTATIN 100,000 U/GM PWD 15 GM BTL TOPICAL SCH ×4 (05:36→21:35)
[2016-12-14] MEDS: CEFEPIME INJ 1,000 MG in SODIUM CHLORIDE 0.9% INJ 100 ML IV SCH ×3 (05:36→21:05)
[2016-12-14 05:59] LABS: HEMATOCRIT 34.5 % (35.0-46.0); MEAN CELL VOLUME 85.9 FL (80.0-100.0); MEAN CORPUSCULAR HEMOGLOBIN 29.4 PG (27.0-34.0); MEAN CORPUSCULAR HGB CONC 34.2 % (32.0-36.0); PLATELET COUNT 273 TH/MM3 (150-450); RED BLOOD COUNT 4.02 MIL/MM3 (4.00-5.30); RED CELL DISTRIBUTION WIDTH 12.4 % (11.6-17.2); REVIEW FLAG FINAL; WHITE BLOOD COUNT 10.1 TH/MM3 (4.0-11.0)
[2016-12-14 06:15] LABS: POTASSIUM 3.7 MEQ/L (3.5-5.1)
[2016-12-14 06:19] LABS: BICARBONATE 31.8 MEQ/L (21.0-32.0)
[2016-12-14 06:23] LABS: INDIRECT BILIRUBIN 0.3 MG/DL (0.0-0.8); TOTAL BILIRUBIN ADULT 0.4 MG/DL (0.2-1.0)
[2016-12-14] MEDS: GABAPENTIN 300 MG CAP PO SCH (10:18)
[2016-12-14] MEDS: DOCUSATE SODIUM 50 MG/SENNA 8.6 MG TAB PO SCH ×2 (10:18→20:44)
[2016-12-14] MEDS: PANTOPRAZOLE SOD 40 MG DELAYED RELEASE TAB PO SCH (10:18)
[2016-12-14] MEDS: DULoxetine HCl DR 30 MG CAP PO SCH (10:19)
[2016-12-14] MEDS: SODIUM CHLORIDE 0.9% FLUSH 10 ML FLUSH IV FLUSH SCH ×2 (10:19→20:45)
[2016-12-14] MEDS: ASPIRIN 325 MG TAB PO SCH (10:19)
--- NOTE | 2016-12-14 15:15 | HHI.PR ---
Subjective Remarks Patient states that she feels weak. Generally weak. She has chronic paresis of the left side. Left leg erythema is improved. Denies pain, nausea or vomiting. Objective Vitals Vital Signs Date Time Temp Pulse Resp B/P Pulse Ox O2 Delivery O2 Flow Rate FiO2 12/14/16 08:00 82 15 104/68 95 12/14/16 08:00 78 12/14/16 05:00 90 14 92/68 94 12/14/16 04:00 90 17 119/70 95 12/14/16 00:00 94 12/14/16 00:00 98.4 94 18 117/75 95 12/13/16 20:00 88 12/13/16 20:00 98.6 88 15 116/61 90 12/13/16 19:43 93 12/13/16 16:00 96 12/13/16 16:00 98.1 96 13 110/67 92 I/O 12/13/16 12/13/16 12/13/16 12/14/16 12/14/16 12/14/16 07:00 15:00 23:00 07:00 15:00 23:00 Intake Total 1596 ml 1415 ml 270 ml 465 ml Output Total 1300 ml 1800 ml 550 ml 800 ml 300 ml Balance 296 ml -385 ml -280 ml -335 ml -300 ml Intake Oral 360 ml 240 ml 120 ml 60 ml IV Total 1236 ml 1175 ml 150 ml 405 ml Output Urine Total 1300 ml 1800 ml 550 ml 800 ml 300 ml # Bowel Movements 0 0 0 Result Diagram: 12/14/16 0545 12/14/16 05 Objective Remarks GENERAL: Well-nourished, well-developed pleasant female patient in no apparent distress, obese body habitus. SKIN: Warm and dry. HEAD: Normocephalic. EYES: No scleral icterus. No injection or drainage. NECK: Supple, trachea midline. No JVD or lymphadenopathy. IV of right neck. CARDIOVASCULAR: Regular rate and rhythm without murmurs, gallops, or rubs. RESPIRATORY: Breath sounds equal bilaterally. No accessory muscle use. GASTROINTESTINAL: Abdomen soft, non-tender, nondistended. EXTREMITIES: Bilateral lymphedema. Left leg has some trace still erythema. She has a small wound at the left lateral hallux toe bed without erythema or signs of infection. NEUROLOGICAL: Awake, alert, and oriented x 3. Chronic paresis of the left upper and lower extremity. A/P Problem List: (1) Cellulitis of leg, left ICD Code: L03.116 Status: Acute (2) Non-alcoholic fatty liver disease ICD Code: K76.0 Status: Chronic (3) Septic shock ICD Code: A41.9 Status: Acute (4) LONNIE on CPAP ICD Code: G47.33 Status: Chronic (5) DM (diabetes mellitus), type 2, uncontrolled ICD Code: E11.65 Status: Chronic (6) Lymphedema of lower extremity ICD Code: I89.0 Status: Acute (7) Morbid obesity with BMI of 45.0-49.9, adult ICD Code: E66.01 Status: Chronic Assessment and Plan -Septic shock, resolved lactic acidosis cleared status post levophed with field care advocate. Blood pressure stable. Leukocytosis resolved. Presumed etiology is a left lower extremity cellulitis. Urine blood cultures and chest x-ray have been negative. Continue vancomycin and cefepime until blood cultures final , then consider switching to by mouth agent. DC Hood today. She is off IV fluids. 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 Lives at home with her . Usually she can assist with transfers from wheelchair to commode etc. Continue physical therapy. Continue aspirin resume statin. Consult physical therapy. -Cellulitis of the left lower extremity with chronic Lower extremity lymphedema - as above. -Insulin-dependent diabetes - continue sliding scale insulin with Accu-Cheks. Start 10 units Levemir subcutaneous at bedtime. -New-onset A. fib in the setting of critical illness. Rate is controlled. She was not transferred down on telemetry when transferred from the ICU. Will check an EKG to determine if this is resolved. TSH was normal. Echocardiogram revealed preserved ejection fraction, no valvular dysfunction. Outpatient cardiology follow-up. -Acute kidney injury, resolved. Good urine output. Discontinue Hood catheter. -Neuropathy and chronic pain. Continue fentanyl patch, gabapentin. Oxycodone as needed. Duloxetine. -Mildly elevated LFTs. Possibly due to shock liver. She also has history of fatty liver disease however. They are not greater than 3 times upper limits of normal and are stable/downtrending on repeat. Okay to resume statin. -GERD- continue PPI -Hypertension-currently normotensive -History of migraines and headaches pain control as needed. -Obstructive sleep apnea. May use home CPAP. -Depression - continue duloxetine 12/12 right IJ triple-lumen catheter was placed by field care advocate -DVT prophylaxis with SCDs and subcutaneous heparin. Nancy Jones MD Dec 14, 2016 15:15
[2016-12-14] MEDS: GABAPENTIN 400 MG CAP PO SCH (20:44)
[2016-12-14] MEDS: INSULIN DETEMIR 100 UNITS/ML VIAL SQ SCH (20:44)
[2016-12-14] MEDS: VANCOMYCIN INJ 1,500 MG in SODIUM CHLORID 0.9% 500 ML INJ 500 ML IV SCH (21:35)
[2016-12-15] VITALS (7 sets, daily range): BP systolic 109–149; BP diastolic 63–90; PULSE 90–102; RESP 15–20; TEMP 96–98.4; O2SAT 94–98
[2016-12-15] MEDS: HEPARIN SODIUM - SQ 10,000 UNITS/ML VIAL SQ SCH ×3 (02:39→18:08)
[2016-12-15] MEDS: INSULIN NovoLIN REGULAR SUPPLEMENTAL SCALE SQ SCH ×5 (02:40→21:33)
[2016-12-15] MEDS: CHLORHEXIDINE GLUCONATE 2 % 1 PACK (2 CLOTHS) TOP SCH (03:37)
[2016-12-15] MEDS: NYSTATIN 100,000 U/GM PWD 15 GM BTL TOPICAL SCH ×3 (05:49→18:09)
[2016-12-15] MEDS: CEFEPIME INJ 1,000 MG in SODIUM CHLORIDE 0.9% INJ 100 ML IV SCH ×3 (05:49→21:32)
[2016-12-15 06:15] LABS: HEMATOCRIT 36.7 % (35.0-46.0); MEAN CELL VOLUME 86.6 FL (80.0-100.0); MEAN CORPUSCULAR HEMOGLOBIN 28.7 PG (27.0-34.0); MEAN CORPUSCULAR HGB CONC 33.2 % (32.0-36.0); PLATELET COUNT 297 TH/MM3 (150-450); RED BLOOD COUNT 4.23 MIL/MM3 (4.00-5.30); RED CELL DISTRIBUTION WIDTH 12.7 % (11.6-17.2); REVIEW FLAG FINAL; WHITE BLOOD COUNT 9.7 TH/MM3 (4.0-11.0)
[2016-12-15 06:26] LABS: POTASSIUM 3.6 MEQ/L (3.5-5.1)
[2016-12-15 06:30] LABS: BICARBONATE 31.1 MEQ/L (21.0-32.0)
[2016-12-15 06:35] LABS: INDIRECT BILIRUBIN 0.3 MG/DL (0.0-0.8); TOTAL BILIRUBIN ADULT 0.4 MG/DL (0.2-1.0)
--- NOTE | 2016-12-15 08:30 | HHI.FF ---
Face to Face Verification Diagnosis: (1) Stroke (2) Lymphedema of left leg (3) Diabetes mellitus (4) Chronic pain (5) Left hemiparesis Physical Therapy Order: Evaluate and Treat Occupational Therapy Order: Evaluate and Treat Home Health Nursing Order: Medical education Wound care and dressing changes Nursing assessment with vital signs Instructions: solomon zhou daily assess left lower extremity at each visit I have seen patient Louise Parker on 12/15/16. My clinical findings support the need for the requested home health care services because: Ltd mobility - disease progression Limited ability to care for self Need for psychosocial assistance High risk of falls I certify that my clinical findings support that this patient is homebound because: Unsafe to leave home unassisted Need for psychosocial assistance [id number] bed/chair Nancy Jones MD Dec 15, 2016 08:30
[2016-12-15] MEDS: PANTOPRAZOLE SOD 40 MG DELAYED RELEASE TAB PO SCH (08:37)
[2016-12-15] MEDS: DULoxetine HCl DR 30 MG CAP PO SCH (08:37)
[2016-12-15] MEDS: DOCUSATE SODIUM 50 MG/SENNA 8.6 MG TAB PO SCH ×2 (08:38→21:00)
[2016-12-15] MEDS: GABAPENTIN 300 MG CAP PO SCH (08:38)
[2016-12-15] MEDS: SODIUM CHLORIDE 0.9% FLUSH 10 ML FLUSH IV FLUSH SCH ×2 (08:39→21:00)
[2016-12-15] MEDS: PRAVASTATIN SOD 40 MG TAB PO SCH (09:23)
[2016-12-15] MEDS: APIXABAN 5 MG TABLET PO SCH ×2 (09:23→21:33)
--- NOTE | 2016-12-15 10:03 | EKG ---
Date Performed: 12/14/2016 Time Performed: 16:48:26 PTAGE: 61 years EKG: Atrial fibrillation Anterior T wave changes are nonspecific Low QRS voltages in precordial leads Abnormal ECG PREVIOUS TRACING : 12/12/2016 17.32 DOCTOR: Porfirio Angulo Interpretating Date/Time 12/15/2016 10:01:57
--- NOTE | 2016-12-15 14:16 | HHI.PR ---
Subjective Remarks Patient was nauseated and dizzy when she stood up with physical therapy and still feels very weak. Denies any pain or vomiting. Objective Vitals Vital Signs Date Time Temp Pulse Resp B/P Pulse Ox O2 Delivery O2 Flow Rate FiO2 12/15/16 09:19 97.3 91 15 149/90 97 12/15/16 09:16 98 21 12/15/16 00:00 98.4 102 18 109/73 94 12/14/16 20:10 97 21 12/14/16 20:00 97.6 97 18 123/75 98 12/14/16 16:00 98.0 87 18 126/77 95 I/O 12/14/16 12/14/16 12/14/16 12/15/16 12/15/16 12/15/16 07:00 15:00 23:00 07:00 15:00 23:00 Intake Total 465 ml 215 ml 480 ml 100 ml Output Total 800 ml 300 ml 1200 ml 900 ml 600 ml Balance -335 ml -85 ml -720 ml -800 ml -600 ml Intake Oral 60 ml 65 ml 480 ml IV Total 405 ml 150 ml 100 ml Output Urine Total 800 ml 300 ml 1200 ml 900 ml 600 ml # Bowel Movements 0 0 1 Result Diagram: 12/15/16 0612/15/16 06 Objective Remarks GENERAL: Well-nourished, well-developed pleasant female patient in no apparent distress, obese body habitus. SKIN: Warm and dry. HEAD: Normocephalic. EYES: No scleral icterus. No injection or drainage. NECK: Supple, trachea midline. No JVD or lymphadenopathy. IV of right neck. CARDIOVASCULAR: Regular rate and rhythm without murmurs, gallops, or rubs. RESPIRATORY: Breath sounds equal bilaterally. No accessory muscle use. GASTROINTESTINAL: Abdomen soft, non-tender, nondistended. EXTREMITIES: Bilateral lymphedema. Left leg has some trace still erythema. She has a small wound at the left lateral hallux toe bed without erythema or signs of infection. NEUROLOGICAL: Awake, alert, and oriented x 3. Chronic paresis of the left upper and lower extremity. A/P Problem List: (1) Cellulitis of leg, left ICD Code: L03.116 Status: Acute (2) Non-alcoholic fatty liver disease ICD Code: K76.0 Status: Chronic (3) Septic shock ICD Code: A41.9 Status: Acute (4) LONNIE on CPAP ICD Code: G47.33 Status: Chronic (5) DM (diabetes mellitus), type 2, uncontrolled ICD Code: E11.65 Status: Chronic (6) Lymphedema of lower extremity ICD Code: I89.0 Status: Acute (7) Morbid obesity with BMI of 45.0-49.9, adult ICD Code: E66.01 Status: Chronic Assessment and Plan -Septic shock, resolved lactic acidosis cleared status post levophed with technical designer. Blood pressure stable. Leukocytosis resolved. Presumed etiology is a left lower extremity cellulitis. Urine blood cultures and chest x-ray have been negative. Has been treated with vancomycin and cefepime - old cultures are negative 3 days and the cellulitis appears clinically resolved. We'll switch to Keflex by mouth. 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 Lives at home with her . Usually she can assist with transfers from wheelchair to commode etc. Continue physical therapy. Continue aspirin resume statin. Consult physical therapy. -Cellulitis of the left lower extremity with chronic Lower extremity lymphedema - as above. -Insulin-dependent diabetes - continue sliding scale insulin with Accu-Cheks. Start 10 units Levemir subcutaneous at bedtime. -New-onset A. fib in the setting of critical illness. Rate is controlled. TSH was normal. Persistent A. fib on EKG repeated yesterday. Echocardiogram revealed preserved ejection fraction, no valvular dysfunction. Will DC aspirin and start Eliquis. Outpatient cardiology follow-up. -Acute kidney injury, resolved. -Neuropathy and chronic pain. Continue fentanyl patch, gabapentin. Oxycodone as needed. Duloxetine. -Mildly elevated LFTs. Possibly due to shock liver. She also has history of fatty liver disease however. They are not greater than 3 times upper limits of normal and are stable/downtrending on repeat. -GERD- continue PPI -Hypertension-currently normotensive -History of migraines and headaches pain control as needed. -Obstructive sleep apnea. Continue home CPAP. -Depression - continue duloxetine 4/2 right IJ triple-lumen catheter was placed by technical designer - will order peripheral IV, discontinue central line. -DVT prophylaxis with SCDs and subcutaneous heparin. Discharge Planning Patient would like to return home with home health care however needs further rehabilitation. May require assisted facility. PT working with the patient. Nancy Jones MD Dec 15, 2016 14:16
[2016-12-15] MEDS ORDERED: PHARMACY ORDERED LAB ONE (15:45)
[2016-12-15] MEDS: VANCOMYCIN INJ 1,500 MG in SODIUM CHLORID 0.9% 500 ML INJ 500 ML IV SCH (16:33)
[2016-12-15] MEDS: GABAPENTIN 400 MG CAP PO SCH (21:33)
[2016-12-15] MEDS: INSULIN DETEMIR 100 UNITS/ML VIAL SQ SCH (21:33)
[2016-12-16] VITALS (8 sets, daily range): BP systolic 120–146; BP diastolic 67–99; PULSE 86–102; RESP 16–20; TEMP 95.3–97.8; O2SAT 94–99
[2016-12-16] MEDS: HEPARIN SODIUM - SQ 10,000 UNITS/ML VIAL SQ SCH ×3 (02:01→17:24)
[2016-12-16] MEDS: NYSTATIN 100,000 U/GM PWD 15 GM BTL TOPICAL SCH ×4 (02:01→17:28)
[2016-12-16] MEDS: INSULIN NovoLIN REGULAR SUPPLEMENTAL SCALE SQ SCH ×5 (02:03→22:28)
[2016-12-16] MEDS: CHLORHEXIDINE GLUCONATE 2 % 1 PACK (2 CLOTHS) TOP SCH (04:00)
[2016-12-16] MEDS: CEFEPIME INJ 1,000 MG in SODIUM CHLORIDE 0.9% INJ 100 ML IV SCH ×3 (05:55→22:27)
[2016-12-16 06:33] LABS: HEMATOCRIT 34.8 % (35.0-46.0); MEAN CELL VOLUME 86.1 FL (80.0-100.0); MEAN CORPUSCULAR HEMOGLOBIN 29.7 PG (27.0-34.0); MEAN CORPUSCULAR HGB CONC 34.5 % (32.0-36.0); PLATELET COUNT 309 TH/MM3 (150-450); RED BLOOD COUNT 4.05 MIL/MM3 (4.00-5.30); RED CELL DISTRIBUTION WIDTH 12.2 % (11.6-17.2); REVIEW FLAG FINAL; WHITE BLOOD COUNT 9.9 TH/MM3 (4.0-11.0)
[2016-12-16 06:41] LABS: POTASSIUM 3.3 MEQ/L (3.5-5.1)
[2016-12-16] MEDS: PRAVASTATIN SOD 40 MG TAB PO SCH (08:47)
[2016-12-16] MEDS: GABAPENTIN 300 MG CAP PO SCH (08:47)
[2016-12-16] MEDS: APIXABAN 5 MG TABLET PO SCH ×2 (08:48→22:22)
[2016-12-16] MEDS: PANTOPRAZOLE SOD 40 MG DELAYED RELEASE TAB PO SCH (08:48)
[2016-12-16] MEDS: DOCUSATE SODIUM 50 MG/SENNA 8.6 MG TAB PO SCH ×2 (08:48→21:00)
[2016-12-16] MEDS: SODIUM CHLORIDE 0.9% FLUSH 10 ML FLUSH IV FLUSH SCH ×2 (08:49→22:37)
[2016-12-16] MEDS: DULoxetine HCl DR 30 MG CAP PO SCH (08:49)
[2016-12-16] MEDS: VANCOMYCIN INJ 1,500 MG in SODIUM CHLORID 0.9% 500 ML INJ 500 ML IV SCH (10:08)
[2016-12-16] MEDS ORDERED: POTASSIUM CHLORIDE 10 MEQ CONTROLLED RELEASE TAB PO ONE (12:00)
--- NOTE | 2016-12-16 19:44 | HHI.PR ---
Subjective Remarks Patient seen this morning. Says she is feeling all right. Denies any chest. Shortness of breath. Still pretty weak getting up to chair. Denies any abdominal pain. Foot pain resolved. Hypokalemia replaced Patient may discharge home with home health tomorrow if ultrasound liver with no acute changes. Objective Vital Signs Date Time Temp Pulse Resp B/P Pulse Ox O2 Delivery O2 Flow Rate FiO2 12/16/16 17:00 97.8 91 16 146/99 96 12/16/16 13:00 97.6 86 16 140/67 98 12/16/16 08:40 96.7 86 16 131/83 94 12/16/16 08:14 98 21 12/16/16 04:00 95.3 90 20 120/81 98 12/16/16 00:00 97.2 90 20 136/84 97 12/15/16 20:20 95 21 12/15/16 20:00 96 12/15/16 20:00 97.3 90 20 135/63 96 I/O 12/15/16 12/15/16 12/15/16 12/16/16 12/16/16 12/16/16 06:59 14:59 22:59 06:59 14:59 22:59 Intake Total 100 ml 1040 ml 240 ml 800 ml Output Total 900 ml 600 ml Balance -800 ml -600 ml 1040 ml 240 ml 800 ml Intake Oral 1040 ml 240 ml 800 ml IV Total 100 ml Output Urine Total 900 ml 600 ml # Voids 6 2 3 # Bowel Movements 1 2 3 Result Diagram: 12/16/16 0550 12/16/16 0550 Objective Remarks GENERAL: Patient sitting up in bed. Appears comfortable. Alert and oriented 3. at bedside. SKIN: Warm and dry. HEAD: Normocephalic. EYES: No scleral icterus. No injection or drainage. NECK: Supple, trachea midline. No JVD. CARDIOVASCULAR: Regular rate and rhythm without murmurs, gallops, or rubs. RESPIRATORY: Breath sounds equal bilaterally. No accessory muscle use. GASTROINTESTINAL: Abdomen soft, non-tender, nondistended. MUSCULOSKELETAL: She has bilateral lower extremity edema. 2+ left. 1+ on the right. Erythema on the left appears to be subacute. Reportedly improved from previously. No broken skin. BACK: Nontender without obvious deformity. No CVA tenderness. Nba Ryan MD Dec 16, 2016 19:44
[2016-12-16] MEDS ORDERED: REMOVE OLD DURAGESIC (FENTANYL) PATCH T-DERMAL SCH (22:00)
[2016-12-16] MEDS: GABAPENTIN 400 MG CAP PO SCH (22:21)
[2016-12-16] MEDS: fentaNYL 25 MCG/HR PATCH T-DERMAL SCH (22:26)
[2016-12-16] MEDS: INSULIN DETEMIR 100 UNITS/ML VIAL SQ SCH (22:27)
[2016-12-17] VITALS: BP 130/68; PULSE 86; RESP 20; TEMP 98.2; O2SAT 97
[2016-12-17] MEDS: HEPARIN SODIUM - SQ 10,000 UNITS/ML VIAL SQ SCH ×2 (02:38→09:23)
[2016-12-17] MEDS: INSULIN NovoLIN REGULAR SUPPLEMENTAL SCALE SQ SCH ×3 (02:39→11:00)
[2016-12-17] MEDS: NYSTATIN 100,000 U/GM PWD 15 GM BTL TOPICAL SCH ×2 (02:40→06:00)
[2016-12-17 04:00] VITALS: BP 127/87; PULSE 90; RESP 20; TEMP 97.9; O2SAT 98
[2016-12-17] MEDS: CHLORHEXIDINE GLUCONATE 2 % 1 PACK (2 CLOTHS) TOP SCH (04:00)
[2016-12-17] MEDS: VANCOMYCIN INJ 1,500 MG in SODIUM CHLORID 0.9% 500 ML INJ 500 ML IV SCH (04:02)
[2016-12-17] MEDS: CEFEPIME INJ 1,000 MG in SODIUM CHLORIDE 0.9% INJ 100 ML IV SCH (06:03)
[2016-12-17 06:07] LABS: MEAN CELL VOLUME 85.8 FL (80.0-100.0); MEAN CORPUSCULAR HEMOGLOBIN 29.9 PG (27.0-34.0); MEAN CORPUSCULAR HGB CONC 34.8 % (32.0-36.0); PLATELET COUNT 309 TH/MM3 (150-450); RED BLOOD COUNT 4.08 MIL/MM3 (4.00-5.30); RED CELL DISTRIBUTION WIDTH 12.1 % (11.6-17.2); REVIEW FLAG FINAL; WHITE BLOOD COUNT 11.5 TH/MM3 (4.0-11.0)
[2016-12-17 06:12] LABS: POTASSIUM 3.5 MEQ/L (3.5-5.1)
[2016-12-17 06:17] LABS: BICARBONATE 28.5 MEQ/L (21.0-32.0)
[2016-12-17 08:00] VITALS: BP 149/80; PULSE 94; PULSE 98; RESP 20; TEMP 97.6; O2SAT 97
[2016-12-17] MEDS ORDERED: LEVEMIR SQ (08:53)
[2016-12-17] MEDS ORDERED: NOVORP2 SQ (08:53)
[2016-12-17] MEDS ORDERED: APIX5TAB PO (08:53)
[2016-12-17] MEDS ORDERED: SENN1TAB PO (08:53)
[2016-12-17] MEDS ORDERED: CEPH500C PO (08:53)
[2016-12-17] MEDS: DOCUSATE SODIUM 50 MG/SENNA 8.6 MG TAB PO SCH (09:00)
[2016-12-17] MEDS: SODIUM CHLORIDE 0.9% FLUSH 10 ML FLUSH IV FLUSH SCH (09:00)
[2016-12-17] MEDS: DULoxetine HCl DR 30 MG CAP PO SCH (09:13)
[2016-12-17] MEDS: GABAPENTIN 300 MG CAP PO SCH (09:13)
[2016-12-17] MEDS: PRAVASTATIN SOD 40 MG TAB PO SCH (09:14)
[2016-12-17] MEDS: PANTOPRAZOLE SOD 40 MG DELAYED RELEASE TAB PO SCH (09:14)
[2016-12-17] MEDS: APIXABAN 5 MG TABLET PO SCH (09:14)
--- NOTE | 2016-12-17 09:34 | RADHPO ---
EXAM DATE/TIME: 12/17/2016 08:52 [facility] COMPARISON: US ABDOMEN - LIVER, September 24, 2010, 14:50. POC ULTRASOUND VASCULAR ACCESS TEAM, July 16, 2016, 19:21. POC ULTRASOUND ED, September 22, 2016, 16:02. POC ULTRASOUND VASCULAR ACCESS TEAM, September, 16:32. US LEG LEFT VENOUS DOPPLER, July 12, 2016, 19:26. INDICATIONS : Increased lab values. MEDICAL HISTORY : Hypercholesterolemia. Gastroesophageal reflux disease. CVA. Uterine cancer. Lymphedema. Cellulit is. SURGICAL HISTORY : Hysterectomy. Cholecystectomy. Cholecystectomy. ENCOUNTER: Initial ACUITY: 1 day PAIN SCORE: 3/10 LOCATION: Bilateral upper quadrant MEASUREMENTS: LIVER: 18.1 cm length COMMON DUCT: 4 mm RIGHT KIDNEY: 12.2 x 4.9 x 5.0 cm SPLEEN: 10.9 cm length FINDINGS: LIVER: There is increased echotexture of the liver. The liver appears enlarged. COMMON DUCT: No intraluminal mass or stone visualized. GALLBLADDER: The patient is post cholecystectomy. PANCREAS: The visualized portions are within normal limits. RIGHT KIDNEY: The examination demonstrates a 2.1 x 1.5 cm echogenic mass in the midpole of the right kidney. This h as an appearance most consistent with a renal angiomyolipoma. There is no hydronephrosis. No stones a re seen. SPLEEN: No focal lesion. CONCLUSION: 1. Heterogeneous, increased echotexture the liver suggesting fatty infiltration. 2. 2.1 x 1.5 cm well-circumscribed echogenic mass in the midpole the right kidney primary considerati on would be a benign angiomyolipoma. Atif Terrazas MD on December 17, 2016 at 9:28 Board Certified Radiologist. This report was verified electronically.
[2016-12-17] MEDS ORDERED: CEPHALEXIN MONOHYDRATE 500 MG CAP PO SCH (12:00)
--- NOTE | 2016-12-18 09:09 | HHI.PR ---
Subjective Remarks Date of service 12/17/16. Patient says she feels well. Feels like leaving the hospital. Denies any pain. Denies any chest pain or shortness of breath. Objective I/O 12/17/16 12/17/16 12/17/16 12/18/16 12/18/16 12/18/16 07:00 15:00 23:00 07:00 15:00 23:00 Intake Total 390 ml Balance 390 ml Intake Oral 240 ml IV Total 150 ml # Voids 3 # Bowel Movements 1 Result Diagram: 12/17/16 0537 12/17/16 0537 Imaging Last Impressions Liver Ultrasound 12/17/16 1939 Signed Impressions: Service Date/Time: Saturday, December 17, 2016 08:52 - CONCLUSION: 1. Heterogeneous , increased echotexture the liver suggesting fatty infiltration. 2. 2.1 x 1.5 cm well-circumscribed echogenic mass in the midpole the right kidney primary consideration would be a benign angiomyolipoma. Atif Terrazas MD Chest X-Ray 12/12/16 1441 Signed Impressions: Service Date/Time: Monday, December 12, 2016 15:08 - CONCLUSION: 1. Minimal basilar atelectasis. No effusion or pneumothorax. Eb Beck MD Objective Remarks GENERAL: Patient sitting up in bed. Appears comfortable. Alert and oriented 3. SKIN: Warm and dry. HEAD: Normocephalic. EYES: No scleral icterus. No injection or drainage. NECK: Supple, trachea midline. No JVD. CARDIOVASCULAR: Regular rate and rhythm without murmurs, gallops, or rubs. RESPIRATORY: Breath sounds equal bilaterally. No accessory muscle use. GASTROINTESTINAL: Abdomen soft, non-tender, nondistended. MUSCULOSKELETAL: She has bilateral lower extremity edema. 2+ left. 1+ on the right. Erythema on the left appears to be subacute, slightly improved from yesterday. No broken skin. BACK: Nontender without obvious deformity. No CVA tenderness. A/P Assessment and Plan //Septic shock, resolved lactic acidosis cleared status post levophed with tender labor. Blood pressure stable. Leukocytosis resolved. Presumed etiology is a left lower extremity cellulitis. Urine blood cultures and chest x-ray have been negative. Has been treated with vancomycin and cefepime - old cultures are negative 3 days and the cellulitis appears clinically resolved. = 12/16 order liver ultrasound. We'll switch to Keflex by mouth. -12/17. Liver ultrasound with fatty infiltration. Will need follow-up with primary care. Continue Keflex to complete treatment course.. 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 Lives at home with her . Usually she can assist with transfers from wheelchair to commode etc. Continue physical therapy. Continue aspirin resume statin.Appreciate physical therapy assistance. //Cellulitis of the left lower extremity with chronic Lower extremity lymphedema - -improving. Continue antibiotics as above. //Insulin-dependent diabetes - continue sliding scale insulin with Accu-Cheks. Continue Levemir Glucose acceptable. Continue to monitor. //New-onset A. fib in the setting of critical illness. Rate is controlled. TSH was normal. Persistent A. fib on EKG repeated yesterday. Echocardiogram revealed preserved ejection fraction, no valvular dysfunction. Will DC aspirin and start Eliquis. Outpatient cardiology follow-up. -Continue anticoagulation. Will need follow-up with cardiology //Acute kidney injury, resolved. //Neuropathy and chronic pain. Continue fentanyl patch, gabapentin. Oxycodone as needed. Duloxetine. //Mildly elevated LFTs. Possibly due to shock liver. She also has history of fatty liver disease however. They are not greater than 3 times upper limits of normal and are stable/downtrending on repeat. -Liver ultrasound fatty infiltration. We'll need weight loss counseling as an outpatient.. 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 Unchanged from previous ultrasound 6 months prior. Patient reports being told about this over a year ago. This appears stable and benign. Follow-up primary care. //GERD- continue PPI //Hypertension-currently normotensive //History of migraines and headaches pain control as needed. //Obstructive sleep apnea. Continue home CPAP. //Depression - continue duloxetine //12/12 right IJ triple-lumen catheter was placed by tender labor - = is continue central line //DVT prophylaxis with SCDs and subcutaneous heparin. Discharge Planning Discharge to home with home health. Nba Ryan MD Dec 18, 2016 09:09
--- NOTE | 2016-12-18 09:15 | HHI.DS ---
Discharge Summary Admission Date Dec 12, 2016 at 16:50 Discharge Date: Dec 17, 2016 Admitting Diagnosis septic shock (1) Cellulitis of leg, left ICD Code: L03.116 (2) Non-alcoholic fatty liver disease ICD Code: K76.0 (3) Septic shock ICD Code: A41.9 (4) LONNIE on CPAP ICD Code: G47.33 (5) DM (diabetes mellitus), type 2, uncontrolled ICD Code: E11.65 (6) Lymphedema of lower extremity ICD Code: I89.0 (7) Morbid obesity with BMI of 45.0-49.9, adult ICD Code: E66.01 Procedures Right IJ Brief History - From Admission This is a 61yF with history of obesity, diabetes, LE lymphedema and recurrent cellulitis. she presents with 3 days of increased left LE redness, swelling, and pain. This is the same spot she usually gets cellulitis. in the ER she was found to be hypotensive which was not responsive to ivf. she was given 3L NS iv and then a right IJ central line was placed and she was started on norepinephrine. her laboratory values are pertinent for a lactate of 2.0, elevated LFTs, leukocytosis of 30, NAHUN Cr 2.0. Critical care medicine is consulted to evaluate and manage septic shock from LE cellulitis. CBC/BMP: 12/17/16 0537 12/17/16 0537 Significant Findings Laboratory Tests Test 12/16/16 12/17/16 05:50 05:37 Hematocrit 34.8 % (35.0-46.0) Potassium Level 3.3 MEQ/L (3.5-5.1) Random Glucose 150 MG/DL 181 MG/DL (74-106) (74-106) White Blood Count 11.5 TH/MM3 (4.0-11.0) Imaging Last Impressions Liver Ultrasound 12/17/161938 Signed Impressions: Service Date/Time: Saturday, December 17, 2016 08:52 - CONCLUSION: 1. Heterogeneous , increased echotexture the liver suggesting fatty infiltration. 2. 2.1 x 1.5 cm well-circumscribed echogenic mass in the midpole the right kidney primary consideration would be a benign angiomyolipoma. Atif Terrazas MD Chest X-Ray 12/12/16 1441 Signed Impressions: Service Date/Time: Monday, December 12, 2016 15:08 - CONCLUSION: 1. Minimal basilar atelectasis. No effusion or pneumothorax. Eb Beck MD PE at Discharge GENERAL: Well-nourished, well-developed pleasant female patient in no apparent distress, obese body habitus. SKIN: Warm and dry. HEAD: Normocephalic. EYES: No scleral icterus. No injection or drainage. NECK: Supple, trachea midline. No JVD or lymphadenopathy. IV of right neck. CARDIOVASCULAR: Regular rate and rhythm without murmurs, gallops, or rubs. RESPIRATORY: Breath sounds equal bilaterally. No accessory muscle use. GASTROINTESTINAL: Abdomen soft, non-tender, nondistended. EXTREMITIES: Bilateral lymphedema. Left leg has some trace still erythema. She has a small wound at the left lateral hallux toe bed without erythema or signs of infection. NEUROLOGICAL: Awake, alert, and oriented x 3. Chronic paresis of the left upper and lower extremity. Hospital Course Septic shock, nahun resolved with broad-spectrum antibiotics, fluids. Left lower extremity cellulitis improved. She'll need to continue Keflex complete treatment course. Patient was also found to have intermittent atrial fibrillation with controlled rate. Echocardiogram with ejection fraction. She was started on anticoagulation, and will need to follow-up with cardiology as outpatient. //Septic shock, resolved lactic acidosis cleared status post levophed with glass cleaning machine tender. Blood pressure stable. Leukocytosis resolved. Presumed etiology is a left lower extremity cellulitis. Urine blood cultures and chest x-ray have been negative. Has been treated with vancomycin and cefepime - old cultures are negative 3 days and the cellulitis appears clinically resolved. = 12/16 order liver ultrasound. We'll switch to Keflex by mouth. -12/17. Liver ultrasound with fatty infiltration. Will need follow-up with primary care. Continue Keflex to complete treatment course.. 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 Lives at home with her . Usually she can assist with transfers from wheelchair to commode etc. Continue physical therapy. Continue aspirin resume statin.Appreciate physical therapy assistance. //Cellulitis of the left lower extremity with chronic Lower extremity lymphedema - -improving. Continue antibiotics as above. //Insulin-dependent diabetes - continue sliding scale insulin with Accu-Cheks. Continue Levemir Glucose acceptable. Continue to monitor. //New-onset A. fib in the setting of critical illness. Rate is controlled. TSH was normal. Persistent A. fib on EKG repeated yesterday. Echocardiogram revealed preserved ejection fraction, no valvular dysfunction. Will DC aspirin and start Eliquis. Outpatient cardiology follow-up. -Continue anticoagulation. Will need follow-up with cardiology //Acute kidney injury, resolved. //Neuropathy and chronic pain. Continue fentanyl patch, gabapentin. Oxycodone as needed. Duloxetine. //Mildly elevated LFTs. Possibly due to shock liver. She also has history of fatty liver disease however. They are not greater than 3 times upper limits of normal and are stable/downtrending on repeat. -Liver ultrasound fatty infiltration. We'll need weight loss counseling as an outpatient.. 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 Unchanged from previous ultrasound 6 months prior. Patient reports being told about this over a year ago. This appears stable and benign. Follow-up primary care. //GERD- continue PPI //Hypertension-currently normotensive //History of migraines and headaches pain control as needed. //Obstructive sleep apnea. Continue home CPAP. //Depression - continue duloxetine //4/2 right IJ triple-lumen catheter was placed by glass cleaning machine tender - = is continue central line //DVT prophylaxis with SCDs and subcutaneous heparin. Discharge Planning Discharge to home with home health. Pt Condition on Discharge: Good Discharge Disposition: Disch w/ Home Health Serv Discharge Time: > 30 minutes Discharge Instructions DIET: Follow Instructions for: Diabetic Diet, Low Sodium Diet Activities you can perform: Regular-No Restrictions Follow up Referrals: Cardiology - 1 Month @ [facility] New Medications: Cephalexin (Cephalexin) 500 Mg Cap 500 MG PO Q6H Infection #40 Ref 0 CAP Apixaban (Eliquis) 5 Mg Tab 5 MG PO BID prevent stroke Days 30 TAB Insulin Detemir Inj (Levemir Inj) 1,000 unit/ 10 ML Vial 10 UNITS SQ HS Blood Sugar Management Days 30 INJECTION Insulin Human Regular Inj (Novolin R Inj) 1,000 Unit/10 Ml Vial 1 INJECTION SQ ACHS AND 3AM Blood Sugar Management Days 30 INJECTION Sennosides-Docusate Sodium (Senna Plus 8.6-50 mg) 1 Tab Tab 1 TAB PO BID Constipation Days 30 TAB Continued Medications: Aspirin (Aspirin) 325 Mg Tab 325 MG PO DAILY #30 Ref 0 TAB Calcium Carbonate (Calcium) 1,250 Mg Tab 1250 MG PO DAILY 1,250 mg calcium carbonate (500 mg elemental calcium) TAB Duloxetine DR (Duloxetine DR) 30 Mg Capdr 30 MG PO DAILY #30 Ref 0 CAP Fentanyl Patch 72 HR (Duragesic Patch 72 HR) 25 Mcg/Hr Patch 25 MCG T-DERMAL Q72H Remove old patch when new one placed. Pain Management #10 Ref 0 PATCH Gabapentin (Gabapentin) 300 Mg Cap 300 MG PO DAILY #60 Ref 0 CAP Gabapentin (Gabapentin) 800 Mg Tab 800 MG PO HS #90 Ref 0 TAB Glimepiride (Glimepiride) 2 Mg Tab 2 MG PO DAILY Take with breakfast or first main meal Blood Sugar Management #30 Ref 0 TAB Multiple Vitamins W/ Minerals (Multivitamin Adults) 1 Tab 1 TAB PO DAILY Nutritional Supplement Ref 0 TAB Oxycodone (Oxycodone) 5 Mg Cap 5 MG PO Q6H PRN PAIN #120 Ref 0 CAP Pantoprazole (Pantoprazole) 40 Mg Tab 40 MG PO DAILY Reflux #30 Ref 0 TAB Potassium Chloride ER (Potassium Chloride ER) 10 Meq Cap 10 MEQ PO DAILY Electrolyte Replacement #30 Ref 0 CAP Pravastatin (Pravastatin) 40 Mg Tab 40 MG PO DAILY Cholesterol Management #30 Ref 0 TAB Discontinued Medications: Insulin Detemir Inj (Levemir Inj) 1,000 unit/ 10 ML Vial 26 UNITS SQ HS Blood Sugar Management Days 30 INJECTION Lisinopril (Lisinopril) 5 Mg Tab 5 MG PO DAILY Blood Pressure Management #30 Ref 0 TAB Nba Ryan MD Dec 18, 2016 09:15
[2016-12-21] MEDS ORDERED: OXYC1CAP PO (13:18)
[2016-12-21] MEDS ORDERED: FENT25T T-DERMAL (13:18)
[2017-01-19] MEDS ORDERED: OXYC1CAP PO (10:37)
[2017-01-19] MEDS ORDERED: FENT25T T-DERMAL (10:37)
[2017-03-02] MEDS ORDERED: FENT25T T-DERMAL (10:47)
[2017-03-02] MEDS ORDERED: OXYC1CAP PO (10:47)
[2017-03-11] MEDS ORDERED: TIZA4TAB PO (15:12)
== END 2016-12-17 12:27 | disposition home or self-care (01) | DRG 871 ==
LOC: PHED 14:17 → PHEDA 16:50 → PHICU 17:55 → PH3A 12-14 10:57
PROVIDERS: ADMIT Internal Medicine; ATTEND Internal Medicine
DX: A41.9 Sepsis, unspecified organism (principal); K72.00 Acute and subacute hepatic failure without coma; R65.21 Severe sepsis with septic shock; N17.9 Acute kidney failure, unspecified; E87.2 Acidosis; E11.65 Type 2 diabetes mellitus with hyperglycemia; I48.1 Persistent atrial fibrillation; Z68.42 Body mass index [BMI] 45.0-49.9, adult; L03.116 Cellulitis of left lower limb; J98.11 Atelectasis; E66.01 Morbid (severe) obesity due to excess calories; G62.9 Polyneuropathy, unspecified; E78.00 Pure hypercholesterolemia, unspecified; E86.9 Volume depletion, unspecified; E87.6 Hypokalemia; G47.33 Obstructive sleep apnea (adult) (pediatric); G89.29 Other chronic pain; I10 Essential (primary) hypertension; I25.2 Old myocardial infarction; I89.0 Lymphedema, not elsewhere classified; K21.9 Gastro-esophageal reflux disease without esophagitis; N28.89 Other specified disorders of kidney and ureter; F32.9 Major depressive disorder, single episode, unspecified; Z79.01 Long term (current) use of anticoagulants; Z79.4 Long term (current) use of insulin; Z85.42 Personal history of malignant neoplasm of other parts of uterus; Z86.73 Personal history of transient ischemic attack (TIA), and cerebral infarction without residual deficits
CPT/HCPCS: 36556; 51702; 71010; 76705; 80048; 80053; 80076; 80202; 81001; 82948; 83605; 83880; 84443; 84484; 85007; 85027; 85610; 85730; 87040; 87641; 93005; 93306; 94150; 94640; 94667; 94668; 96365; 96367; 96368; J0692; J1170; J1644; J3370; J3475; J7030; J7040

== ENCOUNTER 2016-12-20 13:46 | Emergency (ER) | payer MEDICARE, OTHER ==
[~2016-12-20] VITALS: Ht 153.7 cm; Wt 107.0 kg
[~2016-12-20 13:46] MED LIST changes: +APIX5TAB PO; -AUGM875T PO; -BACL10TA PO; +CEPH500C PO; -COLA100C3 PO; -FURO1TAB62 PO; -LISI-519 PO; -MEDR4PAK PO; +NOVORP2 SQ; -REGL10TA5 PO; +SENN1TAB PO; -TIZA4TAB PO
[2016-12-20 14:06] VITALS: BP 124/79; PULSE 78; RESP 16; TEMP 98.3; O2SAT 93
[2016-12-20] MEDS ORDERED: FURO1TAB62 PO (14:32)
[2016-12-20] MEDS ORDERED: NOVORP2 SQ (14:32)
--- NOTE | 2016-12-20 14:32 | PD ---
HPI Chief Complaint: Edema Time Seen by Provider: 14:06 Travel History International Travel<30 days: No Contact w/Intl Traveler<30days: No Traveled to known affect area: No History of Present Illness HPI This patient was discharged from the hospital 3 days ago after experiencing septic shock from a left leg cellulitis. She has chronic lymphedema there. She says that she feels much better and her leg looks much better than in the hospital. She came her because a home health nurse visited her and thought she should get checked out. She's had no fever. She feels well. Severity of symptoms is mild PFSH Past Medical History Hx Anticoagulant Therapy: Yes Arthritis: Yes Asthma: No Autoimmune Disease: No Blood Disorders: No Anxiety: No Depression: Yes Heart Rhythm Problems: No Cancer: Yes Cardiovascular Problems: Yes (a-fib, hx of htn not on meds) High Cholesterol: Yes Chemotherapy: No Chest Pain: Yes (2005) Congestive Heart Failure: No COPD: No Cerebrovascular Accident: Yes (cva x 2) Diabetes: Yes Patient Takes Glucophage: No Diminished Hearing: No Endocrine: Yes Gastrointestinal Disorders: Yes GERD: Yes Glaucoma: No Genitourinary: No Headaches: Yes Hepatitis: No Hiatal Hernia: No Heparin Induced Thrombocytopen: No Hypertension: Yes Immune Disorder: No Implanted Vascular Access Dvce: No Kidney Stones: No Musculoskeletal: Yes 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) Psychiatric: Yes Reproductive: Yes (Uterine CA) Respiratory: Yes Immunizations Current: Yes Migraines: Yes (HISTORY OF ) Myocardial Infarction: Yes Radiation Therapy: No Renal Failure: No Seizures: No Sickle Cell Disease: No Sleep Apnea: Yes Thyroid Disease: No Ulcer: No Tetanus Vaccination: > 5 Years Influenza Vaccination: No ?: Not Menopausal: Yes : 1 Para: 1 Past Surgical History Abdominal Surgery: Yes (cholecsytecomty ) AICD: No Appendectomy: No Arteriovenous Shunt: No Cardiac Surgery: No Section: Yes (X 1) Cholecystectomy: Yes Ear Surgery: No Endocrine Surgery: No Eye Surgery: No Genitourinary Surgery: No Gynecologic Surgery: Yes (c section, total hysterectomy) Hysterectomy: Yes Insulin Pump: No Joint Replacement: Yes Neurologic Surgery: No Oral Surgery: No Pacemaker: No Thoracic Surgery: No Other Surgery: Yes (sinus surgery) Social History Alcohol Use: No Tobacco Use: No Substance Use: No Allergies-Medications (Allergen,Severity, Reaction): Coded Allergies: Biaxin (Verified Allergy, Severe, RASH, 12/20/16) Lipitor (Verified Allergy, Severe, TREMORS, MUSCLE PAIN, 12/20/16) Uncoded Allergies: PAPER TAPE (Allergy, Severe, Rash, 12/20/16) .. Reported Meds & Prescriptions Reported Meds & Active Scripts Active Cephalexin 500 Mg Cap 500 Mg PO Q6H Levemir Inj (Insulin Detemir) 1,000 unit/ 10 ML Vial 10 Units SQ HS 30 Days Novolin R Inj (Insulin Human Regular) 1,000 Unit/10 Ml Vial 1 Injection SQ ACHS AND 3AM 30 Days Senna Plus 8.6-50 mg (Sennosides-Docusate Sodium) 1 Tab Tab 1 Tab PO BID 30 Days Eliquis (Apixaban) 5 Mg Tab 5 Mg PO BID 30 Days Duragesic Patch 72 HR (Fentanyl) 25 Mcg/Hr Patch 25 Mcg T-DERMAL Q72H Remove old patch when new one placed. Oxycodone (Oxycodone HCl) 5 Mg Cap 5 Mg PO Q6H PRN Potassium Chloride ER (Potassium Chloride) 10 Meq Cap 10 Meq PO DAILY Reported Pravastatin 40 Mg Tab 40 Mg PO DAILY Duloxetine DR (Duloxetine HCl) 30 Mg Capdr 30 Mg PO DAILY Pantoprazole (Pantoprazole Sodium) 40 Mg Tab 40 Mg PO DAILY Multivitamin Adults (Multiple Vitamins W/ Minerals) 1 Tab 1 Tab PO DAILY Gabapentin 800 Mg Tab 800 Mg PO HS Gabapentin 300 Mg Cap 300 Mg PO DAILY Calcium (Calcium Carbonate) 1,250 Mg Tab 1,250 Mg PO DAILY 1,250 mg calcium carbonate (500 mg elemental calcium) Aspirin 325 Mg Tab 325 Mg PO DAILY Glimepiride 2 Mg Tab 2 Mg PO DAILY Take with breakfast or first main meal Review of Systems General / Constitutional: No: Fever HENT: No: Headaches Cardiovascular: No: Chest Pain or Discomfort Respiratory: No: Cough Physical Exam Narrative RESPIRATORY: Respiratory effort unlabored, no retractions or use of accessory muscles. Breath sounds are clear and symmetric. Psych: Normal mood and affect. Normal insight and judgment. GASTROINTESTINAL: Abdomen soft, non-tender, nondistended. Positive bowel sounds. No hepato-splenomegaly, or palpable masses. No guarding. Left leg: There is some hyperpigmentation stasis with thickening of skin from chronic edema. No signs of active infection Data Data Last Documented VS Vital Signs Date Time Temp Pulse Resp B/P Pulse Ox O2 Delivery O2 Flow Rate FiO2 12/20/16 14:16 93 Room Air 12/20/16 14:06 98.3 78 16 124/79 [facility] Medical Decision Making Medical Screen Exam Complete: Yes Emergency Medical Condition: Yes Medical Record Reviewed: Yes Differential Diagnosis Cellulitis, lymphedema, sepsis Narrative Course I have reviewed the patient's electronic medical record. Reviewed her admission history and physical and discharge summary from admission last week This patient looks clinically well. Vitals are normal. Her leg is clearly improved and she likes the look of it compared to usual. No indication for emergent studies. She should check and record her blood pressure and pulse and temperature and blood sugar daily for her physician and get follow-up from primary care Continue antibiotics Diagnosis Primary Impression: Lymphedema of left leg Additional Instructions: The patient was advised to follow up with their physician and return if they worsen. Check and record blood pressure and pulse and temperature daily as well as blood sugar Med/Other Pt SpecificInfo: Other Disposition: 01 DISCHARGE HOME Condition: Stable Markie Reed MD Dec 20, 2016 14:32
[2016-12-20 14:36] VITALS: BP 142/78
[2016-12-21] MEDS ORDERED: OXYC1CAP PO (13:18)
[2016-12-21] MEDS ORDERED: FENT25T T-DERMAL (13:18)
[2017-01-19] MEDS ORDERED: FENT25T T-DERMAL (10:37)
[2017-01-19] MEDS ORDERED: OXYC1CAP PO (10:37)
[2017-03-02] MEDS ORDERED: OXYC1CAP PO (10:47)
[2017-03-02] MEDS ORDERED: FENT25T T-DERMAL (10:47)
[2017-03-11] MEDS ORDERED: TIZA4TAB PO (15:12)
== END 2016-12-20 15:15 | disposition home or self-care (01) ==
LOC: PHED 13:46
DX: I89.0 Lymphedema, not elsewhere classified (principal); I10 Essential (primary) hypertension; I48.91 Unspecified atrial fibrillation; Z79.01 Long term (current) use of anticoagulants; E78.00 Pure hypercholesterolemia, unspecified; Z86.73 Personal history of transient ischemic attack (TIA), and cerebral infarction without residual deficits; I25.2 Old myocardial infarction
CPT/HCPCS: 99284

== ENCOUNTER 2017-02-15 10:23 | Day surgery (SDC) | payer MEDICARE, OTHER ==
[~2017-02-15] VITALS: Ht 152.4 cm; Wt 110.0 kg
[~2017-02-15 10:23] MED LIST changes: -ASPI325T PO; +FURO1TAB62 PO; -SENN1TAB PO
[2017-02-15 10:59] VITALS: BP 147/80; PULSE 67; RESP 18; TEMP 98.2; O2SAT 94
[2017-02-15] MEDS ORDERED: NS 1000P @30 MLS/HR (KVO) IV SCH (11:00)
[2017-02-15 11:03] LABS: AUTOMATED NEUTROPHIL # 5.4 TH/MM3 (1.8-7.7); BASOPHIL # 0.1 TH/MM3 (0-0.2); BASOPHIL % 1.1 % (0.0-2.0); EOSINOPHIL # 0.2 TH/MM3 (0-0.4); HEMATOCRIT 39.2 % (35.0-46.0); HEMO FLAGS DIFF FINAL; LYMPH % 24.8 % (9.0-44.0); LYMPHOCYTE # 2.1 TH/MM3 (1.0-4.8); MEAN CELL VOLUME 85.6 FL (80.0-100.0); MEAN CORPUSCULAR HEMOGLOBIN 30.1 PG (27.0-34.0); MEAN CORPUSCULAR HGB CONC 35.2 % (32.0-36.0); MONO % 9.2 % (0.0-8.0); NEUT % 62.9 % (16.0-70.0); PLATELET COUNT 338 TH/MM3 (150-450); RED BLOOD COUNT 4.58 MIL/MM3 (4.00-5.30); RED CELL DISTRIBUTION WIDTH 13.1 % (11.6-17.2); WHITE BLOOD COUNT 8.5 TH/MM3 (4.0-11.0)
[2017-02-15 11:13] LABS: APTT (PATIENT) 26.8 SEC (24.3-30.1); INTERNATIONAL NORMALIZED RATIO 0.9 RATIO; PROTHROMBIN TIME - PATIENT 10.4 SEC (9.8-11.6)
[2017-02-15 11:18] LABS: BICARBONATE 31.9 MEQ/L (21.0-32.0); POTASSIUM 3.9 MEQ/L (3.5-5.1)
[2017-02-15] MEDS ORDERED: CALC12502 PO (11:18)
[2017-02-15] MEDS ORDERED: HUMALOG SQ (11:18)
[2017-02-15] MEDS ORDERED: MULTTAB67 PO (11:18)
[2017-02-15] MEDS ORDERED: TIZA2TAB PO (11:18)
[2017-02-15] MEDS ORDERED: ASCO100016 PO (11:19)
[2017-02-15] MEDS ORDERED: GABA800T PO (11:19)
[2017-02-15] MEDS ORDERED: OXYC1CAP PO (11:21)
[2017-02-15] MEDS ORDERED: HEPARIN-NS/PF INJ 500 ML ONE (14:05)
[2017-02-15] MEDS ORDERED: MIDAZOLAM HCL 2 MG/2 ML VIAL ONE (14:10)
[2017-02-15] MEDS ORDERED: IOHEXOL 350 MG/ML 100 ML BTL (for Cath Lab) OTHER ONE (14:45)
--- NOTE | 2017-02-15 15:00 | CATHPROC ---
[facility] HIS Report Study Information Admission Scheduled Start Study Start Feb 15 2017 10:23AM 02/15/2017 Feb 15 2017 2:01PM [facility]iac Catheterization Admit Source Facility Department Other [facility] - Health Communications Specialist Physician and Clinical Staff Initial Adeline Freire Chief Technician Lizette Greer,RN Other cathlab, cathlab Recorder Steve Gifford RCIS(BS) Scrub Ron, Madyson,SR. MANAGER TECH2 Procedures Performed Procedure Location (Site) Vessel Name Angiogram LV LV Ventricle Coronary Angiograms LCA Left Coronary Coronary Angiograms RCA Right Coronary L Heart Cath Equipment Time Dyeing Machine Tender Description Size Mfg Part Number Used/Scraped TRANSDUCER, TRUWAVE [id number] 14:02 Shyp * Used W/STOCKCOCK *[id number]- INTRODUCER SET, 14:02 smsPREP INC. FR 5 SC-NT-U-SST Used MICROPUNCTURE, STIFFENED *[id number] 538-476 *[id number] 538-420 *[id number] 538-453S *[id number] 14:02 Last.fm INDUSTRIES PACK, CCL CUSTOM * Used *[id number] 14:02 [employer].fm PACER PEN, SKIN DUAL W/ RULER * Used *[id number] 14:02 [employer] WIRE, 3MMJ .035 180CM 180CM Used *[id number] PROBE COVER, STERILE [id number] 14:02 CanDiag * Used ULTRASOUND W/ GEL *[id number] 14:02 NAMIC MANIFOLD, 4 PORT * Used *[id number] 14:02 NYCOMED OMNIPAQUE, 350 MG, 150ML 150ML [id number] Used 14:37 NYCOMED OMNIPAQUE, 350 MG, 50ML 50ML [id number] Used [id number] 14:02 [employer]OH[employer] BLANKET,WARM AIR CCL * Used *[id number] 14:02 [employer] MEDICAL SHEATH, FR4 TERUMO (10CM) FR 4 [id number] Used History: Current Medications Medication Dosage/Unit Route Frequency Last Date/Time Taken ASA History: Allergies Allergy Reaction Biaxin RASH Lipitor TREMORS, MUSCLE PAIN PAPER TAPE Rash Xarelto bleeding History: Risk Factors Family History of Hypertension Dyslipidemia Previous IA Previous Heart Failure Premature CAD No Yes Yes Yes No Prior Valve Prior PCI Prior CABG Surgery No No No Cerebrovascular Peripheral Artery Chronic Lung On Dialysis Diabetes Diabetes Therapy Disease Disease Disease No Yes No Yes Yes Insulin History: Stress Tests Stress or Imaging Studies Performed Yes Standard Exercise Stress Test No Stress Echo No Stress Test SPECT Stress Test SPECT Result Stress Test SPECT Ischemia Risk/Extent Yes Positive Unavailable Stress Test CMR No Cardiac CTA Coronary Calcium Score No No History: IA/CV Data Previous Cath Date 09/12/2005 History: Other Current Smoker No Labs Hgb (g/dl) Hct (%) WBC (l/cumm) Platelets (thousands) 12.00-18.00 37.00-55.00 4.80-10.80 140.00-450.00 13.8 39.2 8.5 338 Glucose (mg/dl) BUN (mg/dl) Creatinine (mg/dl) BUN:Creatinine (1:x) 60.00-110.00 8.00-20.00 0.10-9.00 10.00-20.00 239 10 0.7 14.3 Na (meq/l) K (meq/l) 138.00-146.00 3.80-5.10 140 3.9 INR (PTT:PT) 0.50-2.00 0.9 CPK-MB (ng/ML) 0.00-7.00 Not Drawn Medication Medication Total Dose (Bolus/Oral) Medication Total Dosage/Unit 1% XYLOCAINE 20 mL FENTANYL 50 mcg VERSED 2 mg Medications (Bolus/Oral) Medication Time Given Dosage/Unit Administered By Reason VERSED 02/15/2017 2:23:00 PM 2 mg Lizette Greer 2 mg VERSED given in lab by Lizette Greer RN in Right Forearm via Peripheral IV. Ordered by Adeline Monique. FENTANYL 02/15/2017 2:23:06 PM 50 mcg Lizette Greer 50 mcg FENTANYL given in lab by Lizette Greer RN in Right Forearm via Peripheral IV. Ordered by Adeline Olmedo. 1% XYLOCAINE 02/15/2017 2:25:39 PM 20 mL Adeline Carver 20 mL 1% XYLOCAINE given in lab by Adeline Carver in Right Groin via Subcutaneous. Ordered by Adeline Trimble. Medication (Drip) Medication Time Given Dosage/Unit Concentration/Unit Diluent (ml) Solution IV Solutions 02/15/2017 2:00:54 PM 0 mL (IV) NaCl .9 IV Solutions given in lab by cathlab, cathlab in Right Forearm via Peripheral IV. Pump/Drip Flow = 20 ml/hr using NaCl .9. Ordered by Adeline Carver. Initial Case Assessment Cardiovascular HR Rhythm NIBP Chest Pain 78 sinus 188/98 0 Edema Present Skin color Skin None Normal Warm Dry Circulatory - Right Pulses Dorsalis Pedis Femoral 1 1 Scale (0,1,2,3,4,d) Circulatory - Left Pulses Dorsalis Pedis Femoral 1 1 Scale (0,1,2,3,4,d) Neurological State Oriented to time-place- Alert Moves all extremities person Respiration - General Respiration Rate SpO2 (%) (B/min) 15 95 Final Case Assessment Cardiovascular HR Rhythm NIBP Chest Pain 75 sinus 133/87 0 Edema Present Skin color Skin None Normal Warm Dry Circulatory - Right Pulses Dorsalis Pedis Femoral 1 1 Scale (0,1,2,3,4,d) Circulatory - Left Pulses Dorsalis Pedis Femoral 1 1 Scale (0,1,2,3,4,d) Neurological State Oriented to time-place- Alert Moves all extremities person Respiration - General Respiration Rate SpO2 (%) (B/min) 15 97 Chronological Log Time Study Chronological Log 13:04:02 Patient moved to stretcher 14:00:38 Patient arrived via Bed. 14:00:39 Patient Name, D.O.B, / Armband Verified By R.N. 14:00:39 Consent signed by the physician and the patient and verified by the Health Communications Specialist staff. 14:00:40 Verbal Stimulation=2 Physical Stimulation=2 Airway=2 Respiration=2 TOTAL=8. (0=absent, 1=li mited, 2=present) 14:00:40 Pre-op and post- op instructions given; patient acknowledges understanding of instructions. 14:00:41 Presedation assessment performed by Health Communications Specialist RN. 14:00:42 Immediate Presedation assesment performed by physician. 14:00:46 Patient has been NPO for More than 6Hrs. 14:00:47 Skin Breakdown- none per patient 14:00:49 Patient Warmer Placed on the Table. 14:00:51 Jordon Prominences Protected 14:00:53 IV Warmer Connected To Patient. 14:00:53 A # 20 IV was noted in the Forearm (right). Grade = 0 IV Solutions given in lab by freeman millard in Right Forearm via Peripheral IV. Pump/Drip Timoteo w = 20 ml/hr using NaCl 14:00:54 .9. Ordered by Adeline Carver. 14:00:54 History and physical on the chart or being dictated. Vitals capture started with the following parameters, Patient=Adult, Interval=5 min, Initial Pr ssbzce=857 mmHg, 14:05:17 Deflation Rate=5 mmHg Assessment: Initial Case, HR=78 BPM, Rhythm=sinus, DDDJ=464/98 mmhg, Chest Pain=0, Edema=None, Color=Normal, Skin = Warm, Dry Right Pulses: Carter Ped=1, Femoral=1 14:06:29 Left Pulses: Carter Ped=1, Femoral=1 Neurological: State=Alert, Ox3, VARELA Respiration: Resp=15 B/min, SpO2=95 % 14:06:37 HR=78 bpm, NECJ=041/98 mmhg, SpO2=95 %, Resp=12 B/min, Pain=0, Lizzie=10, Hernandez=2 14:06:40 Reference ECG taken 14:11:04 HR=84 bpm, VIWU=475/97 mmhg, SpO2=95.0 %, Resp=17 B/min, Pain=0, Lizzie=10, Hernandez=2 14:11:56 Bilateral groins prepped with 2% chlorhexidine, and with a 3 min. waiting time. 14:16:07 HR=74 bpm, PWHZ=488/93 mmhg, SpO2=98.0 %, Resp=13 B/min 14:17:32 Pressure channel 1 zeroed. 14:21:08 HR=71 bpm, TDYX=541/88 mmhg, SpO2=98.0 %, Resp=15 B/min, Pain=0, Lizzie=10, Hernandez=2 14:22:56 MD arrived. 14:23:00 2 mg VERSED given in lab by Lizette Greer, MAURICIO in Right Forearm via Peripheral IV. Ordered by Adeline Carver. 50 mcg FENTANYL given in lab by Lizette Greer, MAURICIO in Right Forearm via Peripheral IV. Ordered by Mehul 14:23:06 Adeline. Time Out. Correct patient, correct procedure,correct physician, ,power injector not loaded with contrast with surgical 14:25: team present. Time Out Concurred by , individual staff in procedure 14:: Case Start : Verbal Stimulation=2 Physical Stimulation=2 Airway=2 Respiration=2 TOTAL=8. (0=absent, 1=li mited, 2=present) 20 mL 1% XYLOCAINE given in lab by Adeline Carver in Right Groin via Subcutaneous. Ordered by Mehul, 14:25:39 Humayun. 14:26:03 HR=67 bpm, CBZZ=971/82 mmhg, SpO2=95.0 %, Resp=12 B/min, Pain=0, Lizzie=10, Hernandez=2 14::40 Access site was Right Femoral Artery using micropuncture kit and ultrasound guidance. 14:28:48 A SHEATH, FR4 TERUMO (10CM) FR 4 was advanced into the Fem Art (right) using the Percutaneo us technique. A JL 4.0 INFINITI CATHETER FR 4 was advanced over a wire. OMNIPAQUE, 350 MG, 150ML 150ML was us ed for 14:30:31 injections. 14:31:04 HR=67 bpm, TYGC=154/79 mmhg, SpO2=95.0 %, Resp=19 B/min, Pain=0, Lizzie=10, Hernandez=2 14:31:22 The LCA was injected and visualized at various angles. OMNIPAQUE, 350 MG, 150ML 150ML used . After removing the current catheter a 3DRC INFINITI CATHETER FR 4 was advanced over a WIRE, 3MM J .035 180CM 14:32:15 180CM. 14:33:49 The RCA was injected and visualized at various angles. OMNIPAQUE, 350 MG, 150ML 150ML used . After removing the current catheter a PIGTAIL ANG. INFINITI CATHETER FR 4 was advanced over a W LIVIA, 3MMJ .035 14:35:16 180CM 180CM. 14:36:03 HR=52 bpm, RSXL=397/87 mmhg, SpO2=97.0 %, Resp=12 B/min, Pain=0, Lizzie=10, Hernandez=2 Recorded Pressure: LV, HR=72, Condition=Condition 1 14:36:23 (Left Ventricle) LV 137/7/18 14:36:28 The LV was injected at 8 cc/sec for a total of 32. OMNIPAQUE, 350 MG, 50ML 50ML used. Recorded Pressure: LV, Ao, HR=73, Condition=Condition 1 14:37:45 (Left Ventricle) LV 136/-1/17, (Aorta) Ao 134/67/96 14:38:02 Catheter was removed 14:38:03 Case End Assessment: Final Case, HR=75 BPM, Rhythm=sinus, UDHL=856/87 mmhg, Chest Pain=0, Edema=None, Color=Normal, Skin = Warm, Dry Right Pulses: Carter Ped=1, Femoral=1 14:38:11 Left Pulses: Carter Ped=1, Femoral=1 Neurological: State=Alert, Ox3, VARELA Respiration: Resp=15 B/min, SpO2=97 % 14:38:23 Catheter(s) removed without difficulty 14:38:24 Sheath removed; pressure applied to access site. 14:38:25 No case complications noted. 14:38:26 Cine recording checked. 14:38:29 Bedside Report will be given. 14:38:30 Contrast Scanned 14:38:31 Verbal Stimulation=2 Physical Stimulation=2 Airway=2 Respiration=2 TOTAL=8. (0=absent, 1=l imited, 2=present) 14:38:38 A Left Heart Cath was performed. 14:41:43 HR=67 bpm, DVOH=867/74 mmhg, SpO2=97.0 %, Resp=11 B/min, Pain=0, Lizzie=10, Hernandez=2 14:46:07 HR=69 bpm, ZLYC=886/77 mmhg, SpO2=98.0 %, Resp=12 B/min, Pain=0, Lizzie=10, Hernandez=2 14:51:06 HR=71 bpm, ALLD=284/91 mmhg, SpO2=99.0 %, Resp=14 B/min, Pain=0, Lizzie=10, Hernandez=2 14:56:05 HR=69 bpm, HZIW=706/82 mmhg, SpO2=95.0 %, Resp=20 B/min, Pain=0, Lizzie=10, Hernandez=2 14:59:24 Sterile dressing applied to site 14:59:29 Vitals capture stopped. End Study - Contrast Media Used In Study Contrast Total Opened (mL) Total Used (mL) Total Wasted (mL) Omnipaque 62 62 0 End Study - Maximum Contrast Load Max Contrast Load (mL) 785.7 End Study - Radiation Exposure Fluoro Time (minutes) 2.3 End Study - Patient Disposition Complications Transferred To Interventional Outcome No Health Communications Specialist Holding No attempt made
--- NOTE | 2017-02-15 21:43 | MP ---
cc: ADELINE CARVER MD, DR., DATE OF SURGERY 02/15/17 PROCEDURE Cardiac catheterization INDICATION 1. Unstable angina. 2. Markedly abnormal nuclear stress test showing inferior wall ischemia CONSENT Full informed consent was obtained prior to procedure. Risks of , bleeding, myocardial infarction, perforation, aspiration, foreseen and unforeseen complications are reviewed. The patient appeared to understand the risks. PROCEDURAL STATEMENT The patient draped and prepped in usual manner. The right femoral artery was entered using a micropuncture technique with a 4-Kazakh system and ultrasound. Via the 4-Kazakh sheath, left and right coronary catheters were used to intubate left and right coronaries. Pigtail catheter to left ventricle. Multiple angiographic view were carried out. At the end of the catheterization procedure, all catheters and sheaths were removed. Manual pressure was applied until hemostasis achieved. The patient went to recovery room in stable condition. FINDINGS HEMODYNAMIC RESULTS Aortic pressure 134/67 with mean of 96. The left ventricle pressure 136 with left ventricular end-diastolic pressure of 17. There was no evidence of significant gradient on pullback across the LV outflow tract and aortic valve. LEFT VENTRICULOGRAM The overall left ventricular ejection fraction was estimated at 60%. There was no evidence of significant mitral regurgitation. CORONARIES Left main is large and free of significant. The left anterior descending artery was a large artery with a medium-sized first diagonal branch, was free of significant disease. The circumflex artery was a large artery ending in a large bifurcating obtuse marginal branch. It was markedly tortuous but no significant stenosis. The right coronary artery was a large dominant artery and was free of significant disease. CONCLUSION Normal coronaries. No evidence of significant LV dysfunction; cause of abnormal nuclear stress test is uncertain. Adeline Carver MD, FRCP,[facility]/ /2:46 PM /9:32 PM JOVITA
--- NOTE | 2017-02-16 07:08 | EKG ---
Date Performed: 02/15/2017 Time Performed: 11:03:16 PTAGE: 61 years EKG: Sinus rhythm . Septal T wave changes are nonspecific Low QRS voltages in precordial leads Compared to the previous tracing prior ekg showed atrial fibrillation and present ekg shows sinus rhythm with artifact Border line ECG PREVIOUS TRACING : 12/14/2016 16.48 DOCTOR: Adeline Carver Interpretating Date/Time 02/16/2017 07:06:44
[2017-03-02] MEDS ORDERED: FENT25T T-DERMAL (10:47)
[2017-03-02] MEDS ORDERED: OXYC1CAP PO (10:47)
[2017-03-11] MEDS ORDERED: TIZA4TAB PO (15:12)
== END 2017-02-15 20:03 | disposition home or self-care (01) ==
LOC: HDOC 10:23 → HDIC 10:24 → HDOC 20:03
PROVIDERS: ATTEND Internal Medicine Cardiovascular Disease
DX: I20.0 Unstable angina (principal); I48.91 Unspecified atrial fibrillation; E11.9 Type 2 diabetes mellitus without complications; Z86.73 Personal history of transient ischemic attack (TIA), and cerebral infarction without residual deficits; Z96.649 Presence of unspecified artificial hip joint; Z79.4 Long term (current) use of insulin; Z79.01 Long term (current) use of anticoagulants; Z79.84 Long term (current) use of oral hypoglycemic drugs; Z88.1 Allergy status to other antibiotic agents; Z88.8 Allergy status to other drugs, medicaments and biological substances; Z79.82 Long term (current) use of aspirin
CPT/HCPCS: 80048; 85025; 85610; 85730; 93005; 93458; C1769; C1893; J1644; J2250; J3010; Q9967

== ENCOUNTER 2017-12-05 13:33 | Inpatient (IN) | payer MEDICARE, OTHER, MEDICAID ==
[2017-12-05] VITALS (13 sets, daily range): BP systolic 83–112; BP diastolic 40–66; PULSE 86–128; RESP 16–20; TEMP 98.4–99.2; O2SAT 92–95
[~2017-12-05] VITALS: Ht 152.4 cm; Wt 119.2 kg
[~2017-12-05 13:33] MED LIST changes: +ASCO100029 PO; +CALC12502 PO; -CALC500T17 PO; -CEPH500C PO; +HUMALOG SQ; -MULT1TAB84 PO; +MULTTAB67 PO; -NOVORP2 SQ; +TIZA2TAB PO; +TIZA4TAB PO
--- NOTE | 2017-12-05 14:37 | PD ---
HPI Chief Complaint: Edema Time Seen by Provider: 14:36 Travel History International Travel<30 days: No Contact w/Intl Traveler<30days: No Traveled to known affect area: No History of Present Illness HPI 62-year-old female came to the emergency room with history of left leg cellulitis. Her is giving additional history as well. Patient has history of lymphedema of her left leg and she is wheelchair-bound due to a previous stroke. She is diabetic and has had cellulitis of that leg multiple times in the past. As per the usually she ends up being septic and does not respond to antibiotics at home. Patient at a heart rate of 128 in triage. She noticed this redness this morning. She did not check her blood sugar this morning. She took her insulin however like she supposed to. No history of fever or chills. She appears to be in moderate distress. No history of DVT or PEs in the past. Oxygen saturation was 92% in triage. She does not require oxygen at home but does have a CPAP machine she uses at night during sleep. [facility] Past Medical History Narrative Medical List of her past medical, surgical, social and family history is reviewed from the nursing note. Hx Anticoagulant Therapy: Yes (ELIQUIS) Arthritis: Yes Asthma: No Autoimmune Disease: No Blood Disorders: No Anxiety: No Depression: Yes Heart Rhythm Problems: No Cancer: Yes (UTERINE) Cardiovascular Problems: Yes (a-fib, hx of htn not on meds) High Cholesterol: Yes Chemotherapy: No Chest Pain: No Congestive Heart Failure: No COPD: No Cerebrovascular Accident: Yes (CVA TIMES 2) Diabetes: Yes Diminished Hearing: No Endocrine: Yes Gastrointestinal Disorders: No GERD: Yes Glaucoma: No Genitourinary: No Headaches: Yes Hepatitis: No Hiatal Hernia: No Heparin Induced Thrombocytopen: No Hypertension: No Immune Disorder: No Implanted Vascular Access Dvce: No Kidney Stones: No Musculoskeletal: Yes 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) Psychiatric: Yes Reproductive: Yes (Uterine CA) Respiratory: Yes Integumentary: No Immunizations Current: Yes Migraines: Yes (HISTORY OF ) Myocardial Infarction: Yes Radiation Therapy: No Renal Failure: No Seizures: No Sickle Cell Disease: No Sleep Apnea: Yes Thyroid Disease: No Ulcer: No ?: Not Menopausal: Yes : 1 Para: 1 Past Surgical History Abdominal Surgery: Yes (cholecsytecomty ) AICD: No Appendectomy: No Arteriovenous Shunt: No Cardiac Surgery: No Section: Yes (X 1) Cholecystectomy: Yes Ear Surgery: No Endocrine Surgery: No Eye Surgery: No Genitourinary Surgery: No Gynecologic Surgery: Yes (c section, total hysterectomy) Hysterectomy: Yes Insulin Pump: No Joint Replacement: Yes Neurologic Surgery: No Oral Surgery: No Pacemaker: No Thoracic Surgery: No Other Surgery: Yes (sinus surgery) Social History Alcohol Use: No Tobacco Use: No Substance Use: No Allergies-Medications (Allergen,Severity, Reaction): Coded Allergies: atorvastatin (Unverified Allergy, Severe, TREMORS, MUSCLE PAIN, 12/05/17) clarithromycin (Unverified Allergy, Severe, RASH, 12/05/17) rivaroxaban (Unverified Adverse Reaction, Unknown, bleeding, 12/05/17) Uncoded Allergies: PAPER TAPE (Allergy, Severe, Rash, 12/20/16) .. Comments List of her allergies reviewed from the nursing note. Reported Meds & Prescriptions Reported Meds & Active Scripts Active Duragesic Patch 72 HR (Fentanyl) 25 Mcg/Hr Patch 25 Mcg T-DERMAL Q72H Remove old patch when new one placed. Tizanidine (Tizanidine HCl) 4 Mg Tab 4 Mg PO BID Eliquis (Apixaban) 5 Mg Tab 5 Mg PO BID 30 Days Potassium Chloride ER (Potassium Chloride) 10 Meq Cap 10 Meq PO DAILY Reported Rosuvastatin (Rosuvastatin Calcium) 10 Mg Tab 10 Mg PO HS Levemir Inj (Insulin Detemir) 1,000 unit/ 10 ML Vial 5 Units SQ DAILY Do not mix with any other Insulin. Levemir Inj (Insulin Detemir) 1,000 unit/ 10 ML Vial 40 Units SQ HS Do not mix with any other Insulin. Gabapentin 800 Mg Tab 800 Mg PO HS Vitamin C (Ascorbic Acid) 1,000 Mg Tablet.er 1,000 Mg PO DAILY Multiple Vitamin 1 Tab 1 Tab PO DAILY Calcium Carbonate 1,250 Mg Tab 1,250 Mg PO DAILY 1,250 mg calcium carbonate (500 mg elemental calcium) Lasix (Furosemide) 20 Mg Tab 20 Mg PO DAILY Duloxetine DR (Duloxetine HCl) 30 Mg Capdr 60 Mg PO HS Gabapentin 300 Mg Cap 300 Mg PO DAILY Narrative Medication List of her home medications reviewed from the nursing note. Review of Systems Except as stated in HPI: all other systems reviewed are Neg Physical Exam Narrative GENERAL: Awake, alert, obese, previous hemiplegia on the left side SKIN: Focused skin assessment warm/dry. 58 to the left lower extremity mostly anteriorly extending all the way up to the proximal thigh. Temperature is not warm to touch. HEAD: Atraumatic. Normocephalic. EYES: Pupils equal and round. No scleral icterus. No injection or drainage. ENT: No nasal bleeding or discharge. Mucous membranes pink and moist. NECK: Trachea midline. No JVD. CARDIOVASCULAR: Regular rate and rhythm. No murmur appreciated. RESPIRATORY: No accessory muscle use. Clear to auscultation. Breath sounds equal bilaterally. GASTROINTESTINAL: Abdomen soft, non-tender, nondistended. Hepatic and splenic margins not palpable. MUSCULOSKELETAL: No obvious deformities. No clubbing. No cyanosis. No edema. NEUROLOGICAL: Awake and alert. No obvious cranial nerve deficits. Motor grossly within normal limits. Normal speech. Patient has baseline hemiplegia on the left side. The history of previous stroke. PSYCHIATRIC: Appropriate mood and affect; insight and judgment normal. Data Data Last Documented VS Orders Orders Sepsis Workup Initiated (12/05/17 ) Complete Blood Count With Diff (12/05/17 14:45) Comprehensive Metabolic Panel (12/05/17 14:45) Lactic Acid Sepsis Protocol (12/05/17 14:45) Blood Culture (12/05/17 14:45) Chest, Single Ap (12/05/17 14:45) Blood Glucose (12/05/17 14:45) Ecg Monitoring (12/05/17 14:45) Iv Access Insert/Monitor (12/05/17 14:45) Oximetry (12/05/17 14:45) Oxygen Administration (12/05/17 14:45) Us Leg Venous Doppler (12/05/17 ) Insulin Human Regular Inj (Novolin R Inj (12/05/17 15:45) Sodium Chlor 0.9% 1000 Ml Inj (Ns 1000 M (12/05/17 15:45) Vancomycin Inj (Vancomycin Inj) (12/05/17 16:00) Piperacil-Tazo 4.5 Gm Premix (Zosyn 4.5 (12/05/17 16:00) Sodium Chlor 0.9% 1000 Ml Inj (Ns 1000 M (12/05/17 16:00) Admit Order (Ed Use Only) (12/05/17 16:09) Labs Laboratory Tests Test 12/05/17 15:20 12/05/17 15:50 White Blood Count 32.6 TH/MM3 Red Blood Count 5.40 MIL/MM3 Hemoglobin 15.6 GM/DL Hematocrit 46.9 % Mean Corpuscular Volume 86.9 FL Mean Corpuscular Hemoglobin 28.8 PG Mean Corpuscular Hemoglobin Concent 33.2 % Red Cell Distribution Width 11.7 % Platelet Count 296 TH/MM3 Mean Platelet Volume 9.0 FL Neutrophils (%) (Auto) 94.6 % Lymphocytes (%) (Auto) 1.3 % Monocytes (%) (Auto) 1.5 % Eosinophils (%) (Auto) 0.0 % Basophils (%) (Auto) 2.6 % Neutrophils # (Auto) 30.9 TH/MM3 Lymphocytes # (Auto) 0.4 TH/MM3 Monocytes # (Auto) 0.5 TH/MM3 Eosinophils # (Auto) 0.0 TH/MM3 Basophils # (Auto) 0.8 TH/MM3 CBC Comment AUTO DIFF Differential Total Cells Counted 100 Neutrophils % (Manual) 85 % Band Neutrophils % 7 % Lymphocytes % 5 % Monocytes % 3 % Neutrophils # (Manual) 30.0 TH/MM3 Differential Comment FINAL DIFF MANUAL Platelet Estimate NORMAL Platelet Morphology Comment NORMAL Red Cell Morphology Comment NORMAL Blood Urea Nitrogen 16 MG/DL Creatinine 0.96 MG/DL Random Glucose 377 MG/DL Total Protein 8.5 GM/DL Albumin 3.8 GM/DL Calcium Level 9.2 MG/DL Alkaline Phosphatase 169 U/L Aspartate Amino Transf (AST/SGOT) 121 U/L Alanine Aminotransferase (ALT/SGPT) 97 U/L Total Bilirubin 1.1 MG/DL Sodium Level 130 MEQ/L Potassium Level 6.1 MEQ/L Chloride Level 96 MEQ/L Carbon Dioxide Level 22.3 MEQ/L Anion Gap 12 MEQ/L Estimat Glomerular Filtration Rate 59 ML/MIN Lactic Acid Level 2.7 mmol/L MDM Medical Decision Making Medical Screen Exam Complete: Yes Emergency Medical Condition: Yes Medical Record Reviewed: Yes Differential Diagnosis Cellulitis, DVT Narrative Course 3:11 PM awaiting for the blood test result. 4:01 PM blood test result shows significant leukocytosis with a left shift. Chemistry suggestive of hyperkalemia but creatinine is within normal limit. My speculation is that the hyperkalemia is probably from hemolysis. I have ordered ankle and Zosyn in another liter of IV fluid bolus as per sepsis protocol. Lactic acid is pending. Patient will require admission. Awaiting for the hospitalist to call back. Still waiting for UA and ultrasound of the leg. Her blood pressure the last one was 82/56. Ultrasound was negative for DVT. Critical Care Narrative Aggregate critical care time was 30 minutes. Time to perform other separately billable procedures was not included in the critical care time. My time did not include minutes spent treating any other patients simultaneously or on activities that did not directly contribute to the patient's treatment. The services I provided to this patient were to treat and/or prevent clinically significant deterioration that could result in: Sepsis, sepsis protocol I provided critical care services requiring my management, as noted below: Chart data review, documentation time, medication orders and management, vital sign assessments/reviewing monitor data, ordering and reviewing lab tests, ordering and interpreting/reviewing x-rays and diagnostic studies, care of the patient and discussion of the patient with the admitting physicians. Procedures EKG Prior to Arrival: No Sepsis Criteria SIRS Criteria (2 or more): Heart rate over 90, WBC > 34342, < 4000 or > 10% bands Severe Sepsis (+one): Hypotension, Lactate >2 Diagnosis Primary Impression: Severe sepsis Additional Impressions: Cellulitis of leg, left Hyperglycemia Hypotension Qualified Codes: I95.9 - Hypotension, unspecified Admitting Information Admitting Physician Requests: Admit Scripts Amoxicillin (Amoxicillin) 500 Mg Tab 500 MG PO TID for Infection for 10 Days, TAB 1 Refill Prov: Markie Lemus 12/09/17 Kristi Johnson MD Dec 05, 2017 14:37
--- NOTE | 2017-12-05 15:01 | RADRPT ---
EXAM DATE/TIME: 12/05/2017 14:48 [facility] COMPARISON: CHEST SINGLE AP, December 12, 2016, 16:55. INDICATIONS : Fever. MEDICAL HISTORY : Hypercholesterolemia. Myocardial infarction. Stroke. Afib. Uterine cancer. SURGICAL HISTORY : None. ENCOUNTER: Initial ACUITY: 1 day PAIN SCORE: 0/10 LOCATION: Bilateral chest FINDINGS: A single AP erect portable view of the chest was obtained. The study is Midinspiratory with crowding of the lung vasculature. There are no confluent infiltrates or effusions. The heart and mediastinal s tructures remain within normal. The bony thorax is intact. CONCLUSION: Midinspiratory exam with no acute cardiopulmonary disease. There is no evidence of pn eumonia. Rashaad Sandy MD on December 05, 2017 at 14:56 Board Certified Radiologist. This report was verified electronically.
[2017-12-05] MEDS ORDERED: ROSU1TAB6 PO (15:05)
[2017-12-05] MEDS ORDERED: LEVEMIR SQ ×2 (15:05)
[2017-12-05] MEDS ORDERED: LISI2.5T3 PO (15:05)
[2017-12-05 15:36] LABS: AUTOMATED NEUTROPHIL # 30.9 TH/MM3 (1.8-7.7); BASOPHIL # 0.8 TH/MM3 (0-0.2); BASOPHIL % 2.6 % (0.0-2.0); HEMATOCRIT 46.9 % (35.0-46.0); HEMOGLOBIN 15.6 GM/DL (11.6-15.3); LYMPH % 1.3 % (9.0-44.0); LYMPHOCYTE # 0.4 TH/MM3 (1.0-4.8); MEAN CELL VOLUME 86.9 FL (80.0-100.0); MEAN CORPUSCULAR HEMOGLOBIN 28.8 PG (27.0-34.0); MEAN CORPUSCULAR HGB CONC 33.2 % (32.0-36.0); MONO % 1.5 % (0.0-8.0); MONOCYTE # 0.5 TH/MM3 (0-0.9); NEUT % 94.6 % (16.0-70.0); PLATELET COUNT 296 TH/MM3 (150-450); RED CELL DISTRIBUTION WIDTH 11.7 % (11.6-17.2); WHITE BLOOD COUNT 32.6 TH/MM3 (4.0-11.0)
[2017-12-05 15:44] LABS: CHLORIDE 96 MEQ/L (98-107); SODIUM (NA) 130 MEQ/L (136-145)
[2017-12-05] MEDS ORDERED: SODIUM CHLOR 0.9% 1000 ML INJ 1,000 ML IV ONE ×3 (15:45→17:00)
[2017-12-05] MEDS ORDERED: INSULIN HUMAN REGULAR 1,000 UNITS/10 ML VIAL SQ ONE (15:45)
[2017-12-05 15:47] LABS: CALCIUM 9.2 MG/DL (8.5-10.1)
[2017-12-05 15:48] LABS: ALBUMIN 3.8 GM/DL (3.4-5.0); BICARBONATE 22.3 MEQ/L (21.0-32.0); BLOOD UREA NITROGEN 16 MG/DL (7-18); GLUCOSE,RANDOM 377 MG/DL (74-106)
[2017-12-05 15:51] LABS: ALT (GPT) 97 U/L (10-53); AST (GOT) 121 U/L (15-37); CREATININE 0.96 MG/DL (0.50-1.00); GLOMERULAR FILTRATION RATE 59 ML/MIN (>89)
[2017-12-05 15:53] LABS: TOTAL BILIRUBIN ADULT 1.1 MG/DL (0.2-1.0); TOTAL PROTEIN 8.5 GM/DL (6.4-8.2)
[2017-12-05 15:54] LABS: ALKALINE PHOSPHATASE 169 U/L (45-117)
[2017-12-05] MEDS ORDERED: VANCOMYCIN INJ 1,000 MG in SODIUM CHLOR 0.9% 250 ML INJ 250 ML IV ONE (16:00)
[2017-12-05] MEDS ORDERED: PIPERACIL-TAZO 4.5 GM PREMIX 100 ML IV ONE (16:00)
--- NOTE | 2017-12-05 16:08 | RADRPT ---
EXAM DATE/TIME: 12/05/2017 15:42 [facility] COMPARISON: US LEG LEFT VENOUS DOPPLER, July 12, 2016, 19:26. INDICATIONS : Left leg redness, pain and swelling. MEDICAL HISTORY : Diabetic. Stroke, Uterine cancer. SURGICAL HISTORY : Hysterectomy. section. ENCOUNTER: Initial ACUITY: 1 day PAIN SCORE: 7/10 LOCATION: Left leg. TECHNIQUE: Venous ultrasound of the leg was performed from the inguinal ligament to the proximal calf. Real-lianna e, color Doppler and spectral tracing, compression and augmentation techniques were used. FINDINGS: The study is suboptimal due to the patient's body habitus and soft tissue swelling. There is normal compressibility of the deep venous system from the inguinal region to the proximal ca lf. No echogenic clot is seen in the lumen of the common femoral, femoral, popliteal, and posterior tibial veins. There is a normal response of the venous system to proximal and distal augmentation an d respiration. There is diffuse soft tissue swelling. CONCLUSION: Negative exam with no evidence of deep venous thrombosis. The study is suboptimal due to lower extremity swelling and the patient's body habitus. Rashaad Sandy MD on December 05, 2017 at 16:04 Board Certified Radiologist. This report was verified electronically.
[2017-12-05 16:27] LABS: LACTIC ACID SEPSIS PROTOCOL 2.7 mmol/L (0.4-2.0)
[2017-12-05 16:53] LABS: BANDS 7 % (0-6); LYMPHOCYTES 5 % (9-44); MONOCYTES 3 % (0-8); POLYS (SEG NEUTROPHILS) 85 % (16-70)
[2017-12-05] MEDS ORDERED: ACETAMINOPHEN 325 MG TAB PO PRN (17:00)
[2017-12-05] MEDS ORDERED: MISCELLANEOUS NURSING INFORMATION XX SCH (17:00)
[2017-12-05] MEDS ORDERED: SENNOSIDES 8.6 MG TAB PO PRN (17:00)
[2017-12-05] MEDS ORDERED: RESP: ALBUTEROL 2.5 MG/IPRATROPIUM 0.5 MG NEB (PRN) INH (17:00)
[2017-12-05] MEDS ORDERED: LACTULOSE SYRUP 20 GM/30 ML CUP PO PRN (17:00)
[2017-12-05] MEDS ORDERED: SODIUM CHLORIDE 0.9% FLUSH 10 ML FLUSH IV FLUSH PRN (17:00)
[2017-12-05] MEDS ORDERED: MAGNESIUM HYDROXIDE SUSP 30 ML CUP PO PRN (17:00)
[2017-12-05] MEDS ORDERED: BISACODYL 10 MG SUPP RECTAL PRN (17:00)
[2017-12-05] MEDS ORDERED: CHLORHEXIDINE GLUCONATE 2 % 1 PACK (2 CLOTHS) TOP PRN (17:00)
[2017-12-05] MEDS ORDERED: DEXTROSE 50% IN WATER 50 ML VIAL(D50) IV PUSH PRN (17:15)
[2017-12-05] MEDS ORDERED: GLUCAGON 1 MG/ML VIAL OTHER PRN (17:15)
--- NOTE | 2017-12-05 17:35 | HHI.HP ---
[facility] Service Critical Care Medicine Primary Care Physician Unknown Admission Diagnosis sepsis, hyperglycemia, hypertension, leg cellulitis Diagnosis: (1) Septic shock Diagnosis: Principal (2) Hyperkalemia Diagnosis: Principal (3) Lymphedema of left leg Diagnosis: Principal (4) Cellulitis of leg, left Diagnosis: Principal Chief Complaint: Left lower leg swelling and redness Travel History International Travel<30 Days: No Contact w/Intl Traveler <30 Da: No Traveled to Known Affected Are: No History of Present Illness This is a 62-year-old female with known history of hypertension, diabetes, morbid obesity, chronic left lower extremity lymphedema, recurrent cellulitis of left lower leg, CVA with left hemiparesis who presented to hospital because acute onset of redness in the left lower extremity. Patient was in her normal state of health until this morning when she woke up and she noticed that her leg was significantly red so she came to the hospital for evaluation. Upon workup in emergency department patient found to have significant signs for sepsis with septic shock. Patient had white count of 32, 000, tachycardic at 128, blood pressure 85/44, potassium level .1. Continue workup is being performed at this time in the emergency department to evaluate for further septic source. She was given 2 L of IV fluid bolus without any significant change of her blood pressure. Given empiric antibiotics to include vancomycin and Zosyn. Patient is resting carefully in bed. Looks well clinically. She has had a cough recently with sore throat. She did have an episode of nausea and vomiting yesterday. She denies any chest pain, shortness of breath, abdominal pain, diarrhea, constipation. Patient does take Lasix on a daily basis with potassium supplementation and KATIE inhibitor. 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 Patient was admitted to critical care service and admitted to the ICU. Review of Systems Constitutional: DENIES: Fatigue, Fever, Weight gain, Weight loss, Chills, Dizziness, Night Sweats Eyes: DENIES: Blurred vision, Diplopia, Eye inflammation, Eye pain, Vision loss , Double Vision Ears, nose, mouth, throat: DENIES: Vertigo, Nasal discharge, Throat pain, Ear Pain, Running Nose, Sinus Pain, Toothache Respiratory: COMPLAINS OF: Cough, DENIES: Apneas, Snoring, Wheezing, Hemoptysis , Sputum production, Shortness of breath Cardiovascular: DENIES: Chest pain, Palpitations, Syncope, Dyspnea on Exertion , Lower Extremity Edema, Orthopnea Gastrointestinal: COMPLAINS OF: Nausea, Vomiting, DENIES: Abdominal pain, Black stools, Bloody stools, Constipation, Diarrhea, Difficulty Swallowing Integumentary: COMPLAINS OF: Abnormal pigmentation Psychiatric: DENIES: Anxiety, Confusion, Mood changes, Depression Past Family Social History Allergies: Coded Allergies: atorvastatin (Unverified Allergy, Severe, TREMORS, MUSCLE PAIN, 12/05/17) clarithromycin (Unverified Allergy, Severe, RASH, 12/05/17) rivaroxaban (Unverified Adverse Reaction, Unknown, bleeding, 12/05/17) Uncoded Allergies: PAPER TAPE (Allergy, Severe, Rash, 12/20/16) .. Past Medical History Hypertension Diabetes History of stroke with left-sided weakness Chronic left lower extremity lymphedema Hyperlipidemia Diabetes Diabetic neuropathy Recurrent cellulitis History of cervical cancer Morbid obesity with BMI 46.1 Past Surgical History Cholecystectomy Hysterectomy next line Lymph node resection Reported Medications Reported Meds & Active Scripts Active Duragesic Patch 72 HR (Fentanyl) 25 Mcg/Hr Patch 25 Mcg T-DERMAL Q72H Remove old patch when new one placed. Tizanidine (Tizanidine HCl) 4 Mg Tab 4 Mg PO BID Eliquis (Apixaban) 5 Mg Tab 5 Mg PO BID 30 Days Potassium Chloride ER (Potassium Chloride) 10 Meq Cap 10 Meq PO DAILY Reported Rosuvastatin (Rosuvastatin Calcium) 10 Mg Tab 10 Mg PO HS Lisinopril 2.5 Mg Tab 2.5 Mg PO DAILY Levemir Inj (Insulin Detemir) 1,000 unit/ 10 ML Vial 5 Units SQ DAILY Do not mix with any other Insulin. Levemir Inj (Insulin Detemir) 1,000 unit/ 10 ML Vial 30 Units SQ HS Do not mix with any other Insulin. Gabapentin 800 Mg Tab 800 Mg PO HS Vitamin C (Ascorbic Acid) 1,000 Mg Tablet.er 1,000 Mg PO DAILY Multiple Vitamin 1 Tab 1 Tab PO DAILY Calcium Carbonate 1,250 Mg Tab 1,250 Mg PO DAILY 1,250 mg calcium carbonate (500 mg elemental calcium) Lasix (Furosemide) 20 Mg Tab 20 Mg PO DAILY Duloxetine DR (Duloxetine HCl) 30 Mg Capdr 60 Mg PO DAILY Gabapentin 300 Mg Cap 300 Mg PO DAILY Family History Reviewed is significant for diabetes and hypertension Social History Patient does live at home with her , denies any tobacco, alcohol or illicit drugs Physical Exam Vital Signs Vital Signs Date Time Temp Pulse Resp B/P (MAP) Pulse Ox O2 Delivery O2 Flow Rate FiO2 12/05/17 16:45 86 18 84/45 (58) 94 Room Air 12/05/17 16:17 92 18 91/43 (59) 93 Room Air 12/05/17 16:08 99.2 93 18 83/45 (58) 95 Room Air 12/05/17 16:07 93 17 83/45 (58) 95 Room Air 12/05/17 15:36 101 20 85/44 (58) 92 Room Air 12/05/17 14:51 93 Room Air 12/05/17 14:51 95 Room Air 12/05/17 14:51 94 Room Air 12/05/17 13:40 98.6 128 16 103/52 (69) 92 Physical Exam GENERAL: Well-developed, well-nourished, in no acute distress. alert and orientated HEENT: Head is normocephalic without any lesions or masses noted. Facial features are symmetric. Eyes: Pupils equal round reactive to light. Extraocular muscles are intact. Conjunctivae were clear. Oropharyngeal: Pharynx without any erythema edema. Tongue is midline without deviation. Buccal mucosa is moist without any masses or lesions NECK: Supple without any masses. Trachea midline no deviation. No JVD, no bruits are appreciated CARDIAC: Regular rhythm, regular rate. S1/S2 are heard. No murmurs gallops or rubs. LUNGS: Clear to auscultation bilaterally. No wheeze, rhonchi or rales. No use of accessory muscles on inspiration or expiration. ABDOMEN: Soft, nontender. Nondistended. Bowel sounds heard in all 4 quadrants. No organomegaly or masses. Negative rebound, negative guarding EXTREMITIES: Chronic left lower extremity edema, pulses are equal bilaterally. No cyanosis or clubbing NEUROLOGY: Mood and affect appear appropriate. Cranial nerves II through XII grossly intact. Muscle strength 5/5 in upper and lower extremities bilaterally. Deep tendon reflexes are 2+ in upper and lower extremities bilaterally. SKIN: Left lower extremity does have diffuse cellulitis of the entire left lower extremity there is 2+ edema noted in the left lower extremity Laboratory Laboratory Tests Test 12/05/17 15:20 12/05/17 15:50 White Blood Count 32.6 Red Blood Count 5.40 Hemoglobin 15.6 Hematocrit 46.9 Mean Corpuscular Volume 86.9 Mean Corpuscular Hemoglobin 28.8 Mean Corpuscular Hemoglobin Concent 33.2 Red Cell Distribution Width 11.7 Platelet Count 296 Mean Platelet Volume 9.0 Neutrophils (%) (Auto) 94.6 Lymphocytes (%) (Auto) 1.3 Monocytes (%) (Auto) 1.5 Eosinophils (%) (Auto) 0.0 Basophils (%) (Auto) 2.6 Neutrophils # (Auto) 30.9 Lymphocytes # (Auto) 0.4 Monocytes # (Auto) 0.5 Eosinophils # (Auto) 0.0 Basophils # (Auto) 0.8 CBC Comment AUTO DIFF Differential Total Cells Counted 100 Neutrophils % (Manual) 85 Band Neutrophils % 7 Lymphocytes % 5 Monocytes % 3 Neutrophils # (Manual) 30.0 Differential Comment FINAL DIFF MANUAL Platelet Estimate NORMAL Platelet Morphology Comment NORMAL Red Cell Morphology Comment NORMAL Blood Urea Nitrogen 16 Creatinine 0.96 Random Glucose 377 Total Protein 8.5 Albumin 3.8 Calcium Level 9.2 Alkaline Phosphatase 169 Aspartate Amino Transf (AST/SGOT) 121 Alanine Aminotransferase (ALT/SGPT) 97 Total Bilirubin 1.1 Sodium Level 130 Potassium Level 6.1 Chloride Level 96 Carbon Dioxide Level 22.3 Anion Gap 12 Estimat Glomerular Filtration Rate 59 Lactic Acid Level 2.7 Date/Time Source Procedure Growth Status 12/05/17 15:50 Blood Peripheral Aerobic Blood Culture Pending Received 12/05/17 15:50 Blood Peripheral Anaerobic Blood Culture Pending Received Result Diagram: 12/05/17 1520 12/05/17 1715 Septic Shock Reassessment Septic shock perfusion: reassessment completed Caprini VTE Risk Assessment Caprini VTE Risk Assessment: Mod/High Risk (score >= 2) Caprini Risk Assessment Model Point Value = 1 Point Value = 2 Point Value = 3 Point Value = 5 Age 41-60 Minor surgery BMI > 25 kg/m2 Swollen legs Varicose veins or History of unexplained or recurrent spontaneous Oral contraceptives or hormone replacement Sepsis (< 1 month) Serious lung disease, including pneumonia (< 1 month) Abnormal pulmonary function Acute myocardial infarction Congestive heart failure (< 1 month) History of inflammatory bowel disease Medical patient at bed rest Age 61-74 Arthroscopic surgery Major open surgery (> 45 min) Laparoscopic surgery (> 45 min) Malignancy Confined to bed (> 72 hours) Immobilizing plaster cast Central venous access Age >= 75 History of VTE Family history of VTE Factor V Leiden Prothrombin [id number] Lupus anticoagulant Anticardiolipin antibodies Elevated serum homocysteine Heparin-induced thrombocytopenia Other congenital or acquired thrombophilia Stroke (< 1 month) Elective arthroplasty Hip, pelvis, or leg fracture Acute spinal cord injury (< 1 month) Prophylaxis Regimen Total Risk Factor Score Risk Level Prophylaxis Regimen 0-1 Low Early ambulation 2 Moderate Order ONE of the following: *Sequential Compression Device (SCD) *Heparin 5000 units SQ BID 3-4 Higher Order ONE of the following medications: *Heparin 5000 units SQ TID *Enoxaparin/Lovenox 40 mg SQ daily (WT < 150 kg, CrCl > 30 mL/min) *Enoxaparin/Lovenox 30 mg SQ daily (WT < 150 kg, CrCl > 10-29 mL/min) *Enoxaparin/Lovenox 30 mg SQ BID (WT < 150 kg, CrCl > 30 mL/min) AND/OR *Sequential Compression Device (SCD) 5 or more Highest Order ONE of the following medications: *Heparin 5000 units SQ TID (Preferred with Epidurals) *Enoxaparin/Lovenox 40 mg SQ daily (WT < 150 kg, CrCl > 30 mL/min) *Enoxaparin/Lovenox 30 mg SQ daily (WT < 150 kg, CrCl > 10-29 mL/min) *Enoxaparin/Lovenox 30 mg SQ BID (WT < 150 kg, CrCl > 30 mL/min) AND *Sequential Compression Device (SCD) Assessment and Plan Problem List: (1) Septic shock ICD Code: A41.9 - Sepsis, unspecified organism; R65.21 - Severe sepsis with septic shock Status: Acute (2) Hyperkalemia ICD Code: E87.5 - Hyperkalemia (3) Cellulitis of leg, left ICD Code: L03.116 - Cellulitis of left lower extremity Status: Acute (4) Diabetes ICD Code: E11.9 - Diabetes mellitus Status: Acute (5) Lymphedema of lower extremity ICD Code: I89.0 - Lymphedema of lower extremity Status: Acute Assessment and Plan NEUROLOGY Peripheral neuropathy Continue home medications to include Neurontin, Cymbalta Monitor frequent neurological checks. CARDIOLOGY Hypotension Hyperlipidemia Sinus tachycardia, secondary to sepsis Patient status post 2 L of normal saline bolus, will give another liter at this time Continue monitor blood pressure to keep map above 65 Will check serial cardiac enzymes Will check echocardiogram PULMONOLOGY Continue O2 someone takes maintain O2 sats greater 92% Duo nebs as needed Incentive spirometry GASTROENTEROLOGY Transaminitis Hyperbilirubinemia Unknown etiology Needed continue monitor liver enzymes Obtain CT scan of the abdomen and pelvis Diabetic diet RENAL Electrolyte abnormalities with hyponatremia, hyperkalemia, hypochloremia Could be secondary to use of Lasix, potassium replacement, KATIE inhibitor use Repeat laboratory studies at this time for confirmation Hold potassium supplementation, hold KATIE inhibitor Continue monitor renal function INFECTIOUS DISEASE Cellulitis left lower extremity, recurrent Leukocytosis with left shift Chest x-ray does not indicate any acute abnormality, Obtain influenza testing Blood cultures are pending Patient started on vancomycin, Zosyn for antibiotics empirically HEMATOLOGY Hemoglobin appears to be concentrated this time, could be secondary to dehydration Continue monitor hemoglobin and hematocrit Patient continued on Eliquis ENDOCRINOLOGY Diabetes Accu-Cheks with sliding scale insulin Check TSH, check cortisol level PROPHYLAXIS DVT prevention, patient is on Eliquis GI protection: Patient will be on Pepcid LINES Peripheral IVs CODE STATUS Full code Critical care time 60 minutes excluding procedures Attestation I have seen and evaluated the patient and agree with the documented history and physical by Mr. Lemus. Markie Lemus Dec 05, 2017 17:35 Yaw Low MD Dec 05, 2017 21:11
[2017-12-05 17:51] LABS: BICARBONATE 20.2 MEQ/L (21.0-32.0); MAGNESIUM 1.5 MG/DL (1.5-2.5)
[2017-12-05 17:54] LABS: PHOSPHORUS 3.1 MG/DL (2.5-4.9)
[2017-12-05 17:58] LABS: TROPONIN I LESS THAN 0.02 NG/ML (0.02-0.05)
[2017-12-05] MEDS ORDERED: PILL SPLITTER OTHER PRN (18:00)
[2017-12-05] MEDS ORDERED: Vancomycin Consult Pharmacy 1 EA OTHER SCH (18:00)
[2017-12-05] MEDS: SODIUM CHLOR 0.9% 1000 ML INJ 1,000 ML IV SCH (18:10)
[2017-12-05 19:35] LABS: LACTIC ACID SEPSIS PROTOCOL 3.4 mmol/L (0.4-2.0)
[2017-12-05 19:48] LABS: BILIRUBIN, URINE NEG (NEG); BLOOD, URINE TRACE (NEG); GLUCOSE,URINE 1000 OR GREATER mg/dL (NEG); KETONE, URINE 15 mg/dL (NEG); NITRITE,URINE NEG (NEG); PH, URINE 5.5 (5.0-8.5); URINE COLOR YELLOW (YELLW/STRAW); URINE LEUKOCYTE ESTERASE NEG (NEG)
[2017-12-05 20:06] LABS: RBC, URINE 0-3 /hpf (0-3); SQUAMOUS EPITHELIAL CELL URINE 0-5 /hpf (0-5); WBC, URINE 0-2 /hpf (0-5)
[2017-12-05] MEDS: DOCUSATE SODIUM 50 MG/SENNA 8.6 MG TAB PO SCH (21:00)
[2017-12-05] MEDS: GABAPENTIN 400 MG CAP PO SCH (21:00)
[2017-12-05] MEDS: APIXABAN 5 MG TABLET PO SCH (21:00)
[2017-12-05] MEDS ORDERED: HEPARIN SODIUM - SQ 10,000 UNITS/ML VIAL SQ SCH (21:00)
[2017-12-05] MEDS: ACETAMINOPHEN/HYDROcodone 325 MG/5 MG TAB PO PRN (21:22)
[2017-12-05] MEDS: FAMOTIDINE 20 MG TAB PO SCH (21:22)
[2017-12-05] MEDS: INSULIN ASPART SUPPLEMENTAL SCALE SQ SCH (21:22)
[2017-12-05] MEDS ORDERED: PIPERACIL-TAZO 4.5 GM PREMIX 100 ML IV SCH (22:00)
[2017-12-05] MEDS ORDERED: LIDOCAINE 2%/EPINEPHrine 1:100,000 20ML MDV ONE (22:54)
[2017-12-05] MEDS ORDERED: LIDOCAINE 2%/EPINEPHrine 1:100,000 30ML MDV INFIL ONE (23:00)
[2017-12-06] VITALS (46 sets, daily range): BP systolic 78–136; BP diastolic 38–62; PULSE 74–100; RESP 12–23; TEMP 97.7–99.2; O2SAT 85–97
--- NOTE | 2017-12-06 00:24 | HHI.FPPN ---
Addendum to progress note ADDENDUM Reason for addendum: Additonal documentation Additional information After the risks and benefits were discussed the following procedure was performed: CENTRAL VENOUS LINE: The site was prepped with Betadine and sterilely draped. It was infiltrated with 1% lidocaine plain. The deep vein was cannulated using normal Seldinger technique. A central line was placed in the [left subclavian] site and secured with simple interrupted suture. The site was sterilely dressed. The patient tolerated the procedure well. Due to the patient's body habitus the central line was advanced to about 17 cm instead of the usual 15 cm. On review of chest x-ray central line is in the superior vena cava and no evidence of pneumothorax is noted on the left, read by Dr. Piper Central line placed by Rick Moore MD Dec 06, 2017 00:24
--- NOTE | 2017-12-06 00:31 | RADRPT ---
EXAM DATE/TIME: 12/06/2017 00:16 [facility] COMPARISON: CHEST SINGLE AP, December 05, 2017, 14:48. INDICATIONS : Central line placement. MEDICAL HISTORY : Hypercholesterolemia. Myocardial infarction. Stroke. Afib. Uterine cancer. SURGICAL HISTORY : None. ENCOUNTER: Initial ACUITY: 1 day PAIN SCORE: 0/10 LOCATION: Bilateral chest FINDINGS: A single view of the chest demonstrates the lungs to be symmetrically aerated without evidence of mas s, infiltrate or effusion. The cardiomediastinal contours are unremarkable. Left subclavian central line with tip in the right atrium. No pneumothorax. Osseous structures are intact. CONCLUSION: 1. Adequate placement of left subclavian central line. Juan David MD on December 06, 2017 at 0:28 Board Certified Radiologist. This report was verified electronically.
[2017-12-06] MEDS: SODIUM CHLOR 0.9% 1000 ML INJ 1,000 ML IV SCH ×3 (00:50→15:22)
--- NOTE | 2017-12-06 01:13 | RADRPT ---
EXAM DATE/TIME: 12/06/2017 00:55 [facility] COMPARISON: No previous studies available for comparison. INDICATIONS : Sepsis. Elevated liver enzymes. IV CONTRAST: 100 cc Omnipaque 350 (iohexol) IV ORAL CONTRAST: No oral contrast ingested. RADIATION DOSE: 22.35 CTDIvol (mGy) MEDICAL HISTORY : Cerebrovascular disease. Gastroesophageal reflux disease. Uterine cancer. Diabetes. SURGICAL HISTORY : Cholecystectomy. Hysterectomy.Left hip. ENCOUNTER: Initial ACUITY: 1 day PAIN SCALE: 0/10 LOCATION: pelvis abdomen TECHNIQUE: Volumetric scanning of the abdomen and pelvis was performed. Using automated exposure control and ad justment of the mA and/or kV according to patient size, radiation dose was kept as low as reasonably achievable to obtain optimal diagnostic quality images. DICOM format image data is available electro nically for review and comparison. FINDINGS: LOWER LUNGS: The visualized lower lungs are clear. LIVER: Increased attenuation without lesion. There is no dilation of the biliary tree. Cholecystectomy clip s. SPLEEN: Normal size without lesion. PANCREAS: Within normal limits. KIDNEYS: Normal in size and shape. There is no mass, stone or hydronephrosis. Right renal intensity. 7 mm alfonzo culus left renal pelvis. ADRENAL GLANDS: Within normal limits. VASCULAR: There is no aortic aneurysm. BOWEL/MESENTERY: The stomach, small bowel, and colon demonstrate no acute abnormality. There is no free intraperitone al air or fluid. ABDOMINAL WALL: Within normal limits. RETROPERITONEUM: There is no lymphadenopathy. BLADDER: No wall thickening or mass. Decompressed by Hood catheter. REPRODUCTIVE: Within normal limits. Uterus is absent. INGUINAL: There is no lymphadenopathy or hernia. MUSCULOSKELETAL: Within normal limits for patient age. CONCLUSION: 1. Moderate hepatic steatosis. 2. Cholecystectomy. 3. Nonobstructing left renal calculus. 4. Right renal opacity likely benign. Juan David MD on December 06, 2017 at 1:09 Board Certified Radiologist. This report was verified electronically.
[2017-12-06] MEDS ORDERED: IOHEXOL 350 MG/ML 10 ML VIAL (for RAD DIAG) IVCONTRAST ONE (01:16)
[2017-12-06 01:21] LABS: TROPONIN I LESS THAN 0.02 NG/ML (0.02-0.05)
[2017-12-06] MEDS ORDERED: INSU100C (01:44)
[2017-12-06] MEDS: ACETAMINOPHEN/HYDROcodone 325 MG/5 MG TAB PO PRN ×2 (02:13→08:15)
[2017-12-06] MEDS ORDERED: SODIUM CHLORID 0.9% 500 ML INJ 500 ML IV ONE (04:00)
[2017-12-06] MEDS: CHLORHEXIDINE GLUCONATE 2 % 1 PACK (2 CLOTHS) TOP SCH (04:00)
[2017-12-06] MEDS ORDERED: MAGNESIUM SULFATE 1 GM PREMIX 100 ML IV ONE (04:00)
[2017-12-06] MEDS: SODIUM CHLORIDE 0.9% FLUSH 10 ML FLUSH IV FLUSH SCH ×3 (04:19→20:43)
[2017-12-06 05:42] LABS: AUTOMATED NEUTROPHIL # 21.2 TH/MM3 (1.8-7.7); BASOPHIL % 0.2 % (0.0-2.0); EOSINOPHIL % 0.2 % (0.0-4.0); HEMATOCRIT 34.4 % (35.0-46.0); HEMOGLOBIN 11.3 GM/DL (11.6-15.3); LYMPH % 8.6 % (9.0-44.0); LYMPHOCYTE # 2.1 TH/MM3 (1.0-4.8); MEAN CELL VOLUME 87.3 FL (80.0-100.0); MEAN CORPUSCULAR HEMOGLOBIN 28.7 PG (27.0-34.0); MEAN CORPUSCULAR HGB CONC 32.8 % (32.0-36.0); MEAN PLATELET VOLUME 7.9 FL (7.0-11.0); MONO % 5.1 % (0.0-8.0); MONOCYTE # 1.2 TH/MM3 (0-0.9); NEUT % 85.9 % (16.0-70.0); PLATELET COUNT 278 TH/MM3 (150-450); RED BLOOD COUNT 3.94 MIL/MM3 (4.00-5.30); RED CELL DISTRIBUTION WIDTH 12.1 % (11.6-17.2); WHITE BLOOD COUNT 24.5 TH/MM3 (4.0-11.0)
[2017-12-06] MEDS ORDERED: VANCOMYCIN INJ 1,250 MG in SODIUM CHLOR 0.9% 250 ML INJ 250 ML IV SCH (06:00)
[2017-12-06 06:12] LABS: ALBUMIN 2.5 GM/DL (3.4-5.0); BICARBONATE 29.7 MEQ/L (21.0-32.0); CALCIUM 7.4 MG/DL (8.5-10.1); CALCIUM-PROTEIN CORRECTED 8.1 MG/DL (8.5-10.1); CREATININE 0.61 MG/DL (0.50-1.00); TOTAL BILIRUBIN ADULT 0.6 MG/DL (0.2-1.0); TOTAL PROTEIN 5.8 GM/DL (6.4-8.2)
[2017-12-06] MEDS ORDERED: ALBUMIN 5% INJ 500 ML IV ONE (06:45)
--- NOTE | 2017-12-06 07:03 | HHI.CCPN ---
Subjective Remarks/Hospital Course Hospital Course: This is a 62-year-old female with known history of hypertension, diabetes, morbid obesity, chronic left lower extremity lymphedema, recurrent cellulitis of left lower leg, CVA with left hemiparesis who presented to hospital because acute onset of redness in the left lower extremity. Patient was in her normal state of health until this morning when she woke up and she noticed that her leg was significantly red so she came to the hospital for evaluation. Upon workup in emergency department patient found to have significant signs for sepsis with septic shock. Patient had white count of 32, 000, tachycardic at 128, blood pressure 85/44, potassium level .1. Continue workup is being performed at this time in the emergency department to evaluate for further septic source. She was given 2 L of IV fluid bolus without any significant change of her blood pressure. Given empiric antibiotics to include vancomycin and Zosyn. Patient is resting carefully in bed. Looks well clinically. She has had a cough recently with sore throat. She did have an episode of nausea and vomiting yesterday. She denies any chest pain, shortness of breath, abdominal pain, diarrhea, constipation. Patient does take Lasix on a daily basis with potassium supplementation and KATIE inhibitor. 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 Patient was admitted to critical care service and admitted to the ICU. Subjective: 12/06: clinically improving. blood pressure improved. wbc downtrending. NAHUN improving. hyponatremia resolved. leg still significantly erythematous and swollen. CT abd/pelvis overnight without acute disease. lost iv access overnight and urgent central line placed by ED physician. ROS negative today. patient states she feels better. Objective Vital Signs Date Time Temp Pulse Resp B/P (MAP) Pulse Ox O2 Delivery O2 Flow Rate FiO2 12/06/17 05:33 88 21 101/45 (63) 96 12/06/17 05:31 98.8 12/06/17 02:37 21 12/06/17 00:30 Room Air Intake and Output 12/06/17 12/06/17 12/07/17 08:00 16:00 00:00 Intake Total 2700 ml Output Total 600 ml Balance 2100 ml Result Diagram: 12/06/17 0530 12/06/17 0530 Other Results Microbiology Date/Time Source Procedure Growth Status 12/05/17 17:11 Nasal Aspirate Influenza Types A,B Antigen ([facility]) - Final NEGATIVE FOR FLU A AND B ANTIGEN.... Complete Objective Remarks GENERAL: morbidly obese female, lying in bed HEENT: nc. at. perrl. mucous membranes moist. NECK: trachea midline. large neck circumference prevents accurate assessment of JVD. CARDIAC: Regular rhythm, regular rate. sinus by tele. LUNGS: equal chest rise. on home CPAP. unlabored. ABDOMEN: obese, Soft, nontender. Nondistended. EXTREMITIES: Left lower extremity does have diffuse cellulitis of the entire left lower extremity there is 2+ edema noted in the left lower extremity. compared with yesterday there is approximately 1cm new redness. no areas of fluctuance. pulses palpable. NEUROLOGY: RASS 0. GCS 15. follows commands. A/P Problem List: (1) Septic shock ICD Code: A41.9 - Sepsis, unspecified organism; R65.21 - Severe sepsis with septic shock Status: Acute (2) Hyperkalemia ICD Code: E87.5 - Hyperkalemia (3) Cellulitis of leg, left ICD Code: L03.116 - Cellulitis of left lower extremity Status: Acute (4) Diabetes ICD Code: E11.9 - Diabetes mellitus Status: Acute (5) Lymphedema of lower extremity ICD Code: I89.0 - Lymphedema of lower extremity Status: Acute Assessment and Plan Assessment: 62yF with history of recurrent cellulitis and septic shock of the RLE who presents with recurrent septic shock and RLE cellulitis. clinically improving, although blood pressures remain borderline. highly complex and still remains very ill with multiple organs involved. remain in ICU. very high risk for decompensation. continue abx, follow up cultures. NEUROLOGY Peripheral neuropathy Continue home medications to include Neurontin, Cymbalta Monitor frequent neurological checks. CARDIOLOGY Severe sepsis Hyperlipidemia Sinus tachycardia, secondary to sepsis continue mivf resuscitation add 500cc 5% albumin iv x 1. Continue monitor blood pressure to keep map above 65 PULMONOLOGY Obstructive Sleep Apnea Continue O2 someone takes maintain O2 sats greater 92% home CPAP use at night and during naps Duo nebs as needed Incentive spirometry GASTROENTEROLOGY Transaminitis Hyperbilirubinemia secondary to septic shock Needed continue monitor liver enzymes CT abd/pelvis 12/06: no acute disease Diabetic diet RENAL Electrolyte abnormalities with hyponatremia, hyperkalemia, hypochloremia clinically improving ICU electrolyte protocol Continue monitor renal function INFECTIOUS DISEASE Cellulitis left lower extremity, recurrent Leukocytosis with left shift Blood cultures are pending vancomycin, Zosyn for antibiotics empirically f/u cultures HEMATOLOGY daily CBC Continue monitor hemoglobin and hematocrit Patient continued on Eliquis ENDOCRINOLOGY Diabetes Accu-Cheks with sliding scale insulin TSH, cortisol appropriate PROPHYLAXIS DVT prevention, patient is on Eliquis GI protection: Patient will be on Pepcid LINES subclavian CVL 12/06 irby: requires today. CODE STATUS Full code Yaw Low MD Dec 06, 2017 07:03
[2017-12-06] MEDS: INSULIN ASPART SUPPLEMENTAL SCALE SQ SCH ×4 (08:00→20:43)
[2017-12-06] MEDS: APIXABAN 5 MG TABLET PO SCH ×2 (08:08→20:44)
[2017-12-06] MEDS: GABAPENTIN 300 MG CAP PO SCH (08:08)
[2017-12-06] MEDS: FAMOTIDINE 20 MG TAB PO SCH ×2 (08:09→20:44)
[2017-12-06] MEDS: DOCUSATE SODIUM 50 MG/SENNA 8.6 MG TAB PO SCH ×2 (08:09→20:44)
[2017-12-06] MEDS: CALCIUM CARBONATE 1.25 GM (CA 500 MG) TAB PO SCH (08:10)
[2017-12-06] MEDS ORDERED: FUROSEMIDE 20 MG TAB PO SCH (09:00)
[2017-12-06] MEDS: PIPERACIL-TAZO 4.5 GM PREMIX 100 ML IV SCH ×3 (09:20→20:43)
[2017-12-06] MEDS: DULoxetine HCl DR 60 MG CAP PO SCH (09:21)
[2017-12-06] MEDS: HYDROmorphone HCL PF 2 MG/ML VIAL IV PUSH PRN (15:21)
--- NOTE | 2017-12-06 15:41 | EKG ---
Date Performed: 12/05/2017 Time Performed: 17:23:08 PTAGE: 62 years EKG: Sinus rhythm LOW QRS VOLTAGE IN PRECORDIAL LEADS BORDERLINE ECG Since the PREVIOUS TRACING , no significant change noted PREVIOUS TRACIN02/15/2017 11.03 DOCTOR: Umberto Leal Interpretating Date/Time 12/06/2017 15:39:13
[2017-12-06] MEDS: VANCOMYCIN INJ 1,250 MG in SODIUM CHLOR 0.9% 250 ML INJ 250 ML IV SCH (17:57)
[2017-12-06] MEDS: GABAPENTIN 400 MG CAP PO SCH (20:44)
[2017-12-06] MEDS: ROSUVASTATIN 10 MG PO SCH (20:44)
[2017-12-07] VITALS (21 sets, daily range): BP systolic 106–155; BP diastolic 46–82; PULSE 70–84; RESP 3–23; TEMP 97.6–98.7; O2SAT 90–97
[2017-12-07] MEDS: PIPERACIL-TAZO 4.5 GM PREMIX 100 ML IV SCH ×2 (01:45→09:50)
[2017-12-07] MEDS: SODIUM CHLOR 0.9% 1000 ML INJ 1,000 ML IV SCH (01:45)
[2017-12-07] MEDS: CHLORHEXIDINE GLUCONATE 2 % 1 PACK (2 CLOTHS) TOP SCH (01:45)
[2017-12-07 04:39] LABS: HEMATOCRIT 31.7 % (35.0-46.0); MEAN CORPUSCULAR HEMOGLOBIN 30.5 PG (27.0-34.0); MEAN CORPUSCULAR HGB CONC 34.7 % (32.0-36.0); MEAN PLATELET VOLUME 7.9 FL (7.0-11.0); PLATELET COUNT 236 TH/MM3 (150-450); RED CELL DISTRIBUTION WIDTH 12.6 % (11.6-17.2); WHITE BLOOD COUNT 14.1 TH/MM3 (4.0-11.0)
[2017-12-07 04:58] LABS: CALCIUM 8.1 MG/DL (8.5-10.1)
[2017-12-07 04:59] LABS: BICARBONATE 27.2 MEQ/L (21.0-32.0)
[2017-12-07 05:02] LABS: CREATININE 0.56 MG/DL (0.50-1.00)
[2017-12-07] MEDS: VANCOMYCIN INJ 1,250 MG in SODIUM CHLOR 0.9% 250 ML INJ 250 ML IV SCH ×2 (06:02→18:00)
[2017-12-07] MEDS ORDERED: FUROSEMIDE 40 MG/4 ML VIAL IV PUSH ONE (07:30)
--- NOTE | 2017-12-07 07:35 | HHI.CCPN ---
Subjective Remarks/Hospital Course Hospital Course: This is a 62-year-old female with known history of hypertension, diabetes, morbid obesity, chronic left lower extremity lymphedema, recurrent cellulitis of left lower leg, CVA with left hemiparesis who presented to hospital because acute onset of redness in the left lower extremity. Patient was in her normal state of health until this morning when she woke up and she noticed that her leg was significantly red so she came to the hospital for evaluation. Upon workup in emergency department patient found to have significant signs for sepsis with septic shock. Patient had white count of 32, 000, tachycardic at 128, blood pressure 85/44, potassium level .1. Continue workup is being performed at this time in the emergency department to evaluate for further septic source. She was given 2 L of IV fluid bolus without any significant change of her blood pressure. Given empiric antibiotics to include vancomycin and Zosyn. Patient is resting carefully in bed. Looks well clinically. She has had a cough recently with sore throat. She did have an episode of nausea and vomiting yesterday. She denies any chest pain, shortness of breath, abdominal pain, diarrhea, constipation. Patient does take Lasix on a daily basis with potassium supplementation and KATIE inhibitor. 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 Patient was admitted to critical care service and admitted to the ICU. Subjective: 12/06: clinically improving. blood pressure improved. wbc downtrending. NAHUN improving. hyponatremia resolved. leg still significantly erythematous and swollen. CT abd/pelvis overnight without acute disease. lost iv access overnight and urgent central line placed by ED physician. ROS negative today. patient states she feels better. 12/07: continues to clinically improve. blood cultures growing group B strep, which is consistent with prior microbiology history for her. leg edema and erythema significantly better and now is isolated to mid-calf. does endorse 1 episode of nausea after dinner last night, but no current nausea, vomiting, abdominal pain. ROS otherwise negative. Objective Vital Signs Date Time Temp Pulse Resp B/P (MAP) Pulse Ox O2 Delivery O2 Flow Rate FiO2 12/07/17 06:01 72 3 127/76 (93) 96 12/07/17 04:01 98.1 12/06/17 19:50 21 12/06/17 00:30 Room Air Intake and Output 12/07/17 12/07/17 12/08/17 08:00 16:00 00:00 Intake Total 663 ml Output Total 1000 ml Balance -337 ml Result Diagram: 12/07/17 0425 12/07/17 0425 Other Results Microbiology Date/Time Source Procedure Growth Status 12/05/17 17:11 Nasal Aspirate Influenza Types A,B Antigen ([facility]BY) - Final NEGATIVE FOR FLU A AND B ANTIGEN.... Complete Objective Remarks GENERAL: morbidly obese female, lying in bed HEENT: nc. at. perrl. mucous membranes moist. NECK: trachea midline. large neck circumference prevents accurate assessment of JVD. CARDIAC: Regular rhythm, regular rate. sinus by tele. LUNGS: equal chest rise. on home CPAP. unlabored. ABDOMEN: obese, Soft, nontender. Nondistended. EXTREMITIES: Left lower extremity cellulitis confined to the mid-calf. 2+ edema noted in the left lower extremity persists. significantly improved from yesterday. no areas of fluctuance. pulses palpable. NEUROLOGY: RASS 0. GCS 15. follows commands. A/P Problem List: (1) Septic shock ICD Code: A41.9 - Sepsis, unspecified organism; R65.21 - Severe sepsis with septic shock Status: Acute (2) Hyperkalemia ICD Code: E87.5 - Hyperkalemia (3) Cellulitis of leg, left ICD Code: L03.116 - Cellulitis of left lower extremity Status: Acute (4) Diabetes ICD Code: E11.9 - Diabetes mellitus Status: Acute (5) Lymphedema of lower extremity ICD Code: I89.0 - Lymphedema of lower extremity Status: Acute Assessment and Plan Assessment: 62yF with history of recurrent cellulitis and septic shock of the RLE who presents with recurrent septic shock and RLE cellulitis. clinically improving, blood pressure better. will stop ivf, start gentle diuresis. narrow abx based on sensitivities. will work with PT and OOB today. if she continues to improve, can leave ICU later today. NEUROLOGY Peripheral neuropathy Continue home medications to include Neurontin, Cymbalta Monitor frequent neurological checks. CARDIOLOGY Severe sepsis - resolving. Hyperlipidemia Sinus tachycardia, secondary to sepsis- resolved. d/c mivf. Continue monitor blood pressure to keep map above 65 PULMONOLOGY Obstructive Sleep Apnea Continue O2 someone takes maintain O2 sats greater 92% home CPAP use at night and during naps Duo nebs as needed Incentive spirometry OOB with assist PT consult GASTROENTEROLOGY Transaminitis Hyperbilirubinemia secondary to septic shock Needed continue monitor liver enzymes CT abd/pelvis 12/06: no acute disease Diabetic diet RENAL Electrolyte abnormalities with hyponatremia, hyperkalemia, hypochloremia clinically improving ICU electrolyte protocol Continue monitor renal function lasix 40mg iv x 1, then start home dose of 20mg po daily. d/c surekha. INFECTIOUS DISEASE Cellulitis left lower extremity, recurrent Leukocytosis with left shift Blood cultures are pending vancomycin, Zosyn for antibiotics empirically blood cultures Group B strep. after cultures are resulted x 48h, will narrow spectrum. Given that this is recurrent rapidly progressive septic shock from sensitive gram + organisms, would recommend that the patient be sent home with a prescription for Cefalexin or Augmentin, not for the indication for self treatment of illness, but for the ability to rapidly start treatment while seeking emergency medical attention and prevent recurrent shock states. HEMATOLOGY daily CBC Continue monitor hemoglobin and hematocrit Patient continued on Eliquis ENDOCRINOLOGY Diabetes Accu-Cheks with sliding scale insulin TSH, cortisol appropriate PROPHYLAXIS DVT prevention, patient is on Eliquis GI protection: Pepcid LINES subclavian CVL 12/06 d/c surekha. CODE STATUS Full code dispo: if she continues to improve, can leave ICU later today. will consult hospitalist service. Ywa Low MD Dec 07, 2017 07:35
[2017-12-07] MEDS: INSULIN ASPART SUPPLEMENTAL SCALE SQ SCH ×4 (08:26→20:26)
[2017-12-07] MEDS: HYDROmorphone HCL PF 2 MG/ML VIAL IV PUSH PRN ×3 (08:39→23:10)
[2017-12-07] MEDS: ONDANSETRON HCL 4 MG/2 ML VIAL IV PUSH PRN ×3 (08:52→23:10)
[2017-12-07] MEDS: DOCUSATE SODIUM 50 MG/SENNA 8.6 MG TAB PO SCH ×4 (09:00→20:27)
[2017-12-07] MEDS: POLYETHYLENE GLYCOL 17 GM PKG PO SCH ×2 (09:00→20:27)
[2017-12-07] MEDS: LACTULOSE SYRUP 20 GM/30 ML CUP PO SCH ×2 (09:49→20:27)
[2017-12-07] MEDS: BISACODYL 10 MG SUPP RECTAL SCH (09:50)
[2017-12-07] MEDS: APIXABAN 5 MG TABLET PO SCH ×2 (09:55→20:26)
[2017-12-07] MEDS: SODIUM CHLORIDE 0.9% FLUSH 10 ML FLUSH IV FLUSH SCH ×2 (09:55→20:25)
[2017-12-07] MEDS: DULoxetine HCl DR 60 MG CAP PO SCH (09:55)
[2017-12-07] MEDS: GABAPENTIN 300 MG CAP PO SCH (09:55)
[2017-12-07] MEDS: CALCIUM CARBONATE 1.25 GM (CA 500 MG) TAB PO SCH (09:55)
[2017-12-07] MEDS: FAMOTIDINE 20 MG TAB PO SCH ×2 (09:55→20:26)
[2017-12-07] MEDS: PENICILLIN G POTASSIUM INJ 4,000,000 UNITS in SODIUM CHLORIDE 0.9% INJ 100 ML IV SCH ×3 (13:54→20:28)
[2017-12-07] MEDS ORDERED: VANCOMYCIN TROUGH ONE (17:45)
[2017-12-07] MEDS ORDERED: fentaNYL 25 MCG/HR PATCH T-DERMAL SCH (20:00)
[2017-12-07] MEDS: ROSUVASTATIN 10 MG PO SCH (20:25)
[2017-12-07] MEDS: GABAPENTIN 400 MG CAP PO SCH (20:26)
[2017-12-08] VITALS: BP 122/56; PULSE 68; RESP 12; TEMP 97.9; O2SAT 94
[2017-12-08] MEDS: PENICILLIN G POTASSIUM INJ 4,000,000 UNITS in SODIUM CHLORIDE 0.9% INJ 100 ML IV SCH ×6 (01:16→20:36)
[2017-12-08] MEDS: CHLORHEXIDINE GLUCONATE 2 % 1 PACK (2 CLOTHS) TOP SCH (04:00)
[2017-12-08] MEDS: VANCOMYCIN INJ 1,250 MG in SODIUM CHLOR 0.9% 250 ML INJ 250 ML IV SCH (04:54)
[2017-12-08] MEDS: HYDROmorphone HCL PF 2 MG/ML VIAL IV PUSH PRN ×2 (04:55→14:41)
[2017-12-08] MEDS: ONDANSETRON HCL 4 MG/2 ML VIAL IV PUSH PRN ×2 (04:55→14:41)
[2017-12-08 05:11] LABS: HEMATOCRIT 33.7 % (35.0-46.0); HEMOGLOBIN 11.2 GM/DL (11.6-15.3); MEAN CELL VOLUME 87.7 FL (80.0-100.0); MEAN CORPUSCULAR HGB CONC 33.1 % (32.0-36.0); PLATELET COUNT 277 TH/MM3 (150-450); RED BLOOD COUNT 3.85 MIL/MM3 (4.00-5.30); RED CELL DISTRIBUTION WIDTH 12.3 % (11.6-17.2); WHITE BLOOD COUNT 10.9 TH/MM3 (4.0-11.0)
[2017-12-08 05:14] VITALS: BP 137/59; PULSE 68; RESP 12; TEMP 98.1
[2017-12-08 05:20] LABS: BICARBONATE 29.6 MEQ/L (21.0-32.0); CALCIUM 7.9 MG/DL (8.5-10.1)
[2017-12-08 05:23] LABS: CREATININE 0.58 MG/DL (0.50-1.00)
[2017-12-08] MEDS ORDERED: POTASSIUM CHLORIDE 20 MEQ CONTROLLED RELEASE TAB PO ONE (07:30)
[2017-12-08 08:00] VITALS: BP 132/58; PULSE 62; PULSE 93; RESP 11; TEMP 98.3
[2017-12-08] MEDS: LACTULOSE SYRUP 20 GM/30 ML CUP PO SCH (09:00)
[2017-12-08] MEDS: SODIUM CHLORIDE 0.9% FLUSH 10 ML FLUSH IV FLUSH SCH ×2 (09:00→20:27)
[2017-12-08] MEDS: POLYETHYLENE GLYCOL 17 GM PKG PO SCH (09:00)
[2017-12-08] MEDS: BISACODYL 10 MG SUPP RECTAL SCH (09:00)
[2017-12-08] MEDS: DOCUSATE SODIUM 50 MG/SENNA 8.6 MG TAB PO SCH ×3 (09:00→20:36)
[2017-12-08] MEDS: FAMOTIDINE 20 MG TAB PO SCH ×2 (10:00→20:36)
[2017-12-08] MEDS: INSULIN ASPART SUPPLEMENTAL SCALE SQ SCH ×4 (10:00→20:44)
[2017-12-08] MEDS: GABAPENTIN 300 MG CAP PO SCH (10:01)
[2017-12-08] MEDS: CALCIUM CARBONATE 1.25 GM (CA 500 MG) TAB PO SCH (10:01)
[2017-12-08] MEDS: DULoxetine HCl DR 60 MG CAP PO SCH (10:01)
[2017-12-08] MEDS: FUROSEMIDE 20 MG TAB PO SCH (10:01)
[2017-12-08] MEDS: APIXABAN 5 MG TABLET PO SCH ×2 (10:02→20:37)
[2017-12-08 14:52] VITALS: BP 136/66; PULSE 68; RESP 24
--- NOTE | 2017-12-08 14:54 | HHI.FF ---
Face to Face Verification Diagnosis: (1) Bacteremia (2) Septic shock (3) Nondominant spastic hemiplegia Physical Therapy Order: Evaluate and Treat, Improve ambulation, Strength and gait training Home Health Nursing Order: Medical education Signs/symptoms of disease process Nursing assessment with vital signs I have seen patient Louise Parker on 12/08/17. My clinical findings support the need for the requested home health care services because: Deconditioned w/ increased weakness Limited ability to care for self I certify that my clinical findings support that this patient is homebound because: Unsteady gait/balance Unsafe to leave home unassisted Markie Lemus Dec 08, 2017 14:54
[2017-12-08] MEDS ORDERED: PROMETHAZINE INJ 25 MG/ML VIAL IM PRN (15:00)
--- NOTE | 2017-12-08 15:16 | HHI.PR ---
Subjective Remarks 62-year-old female who is seen today to assume medical management from critical care team. Patient was originally admitted to hospital on because of septic shock. Patient was admitted the hospital with empirical antibiotics to include vancomycin, Zosyn. Patient did have obvious cellulitis of the left lower extremity. She has significant hypotension that required multiple liters of normal saline to be given to maintain map greater than 65. Patient was admitted to critical care team in transfer to the ICU. Patient did undergo IV fluid boluses, antibiotics until patient has been stabilized. Patient had workup done which did indicate positive blood cultures with group B beta strep and antibiotics were changed from Zosyn to penicillin G. Patient hasn't really improved. Blood pressure is stable. Patient was transferred to medical service for continued care. Upon seeing the patient today she is doing quite well. Patient indicates that anytime that she is tried to eat she is had episodes of nausea and delayed vomiting. She is getting out of bed to chair with help from physical therapy and nursing staff. Reviewed physical therapy notes to indicate patient will hopefully go home with home health care. Objective Vitals Vital Signs Date Time Temp Pulse Resp B/P (MAP) Pulse Ox O2 Delivery O2 Flow Rate FiO2 12/08/17 08:00 98.3 62 11 132/58 (82) 12/08/17 08:00 93 12/08/17 05:25 14 12/08/17 05:14 98.1 68 12 137/59 (85) 12/08/17 00:00 97.9 68 12 122/56 (78) 94 12/07/17 21:25 20 12/07/17 20:00 74 12/07/17 20:00 98.7 74 15 155/75 (101) 93 12/07/17 16:00 78 17 145/61 (89) 97 I/O 12/07/17 12/07/17 12/07/17 12/08/17 12/08/17 12/08/17 07:00 15:00 23:00 07:00 15:00 23:00 Intake Total 663 ml 1144.7 ml 580 ml 670 ml Output Total 1000 ml 3100 ml Balance -337 ml 1144.7 ml -2520 ml 670 ml Intake Oral 480 ml 120 ml IV Total 663 ml 1144.7 ml 100 ml 550 ml Output Urine Total 1000 ml 3100 ml # Voids 3 # Bowel Movements 1 2 Result Diagram: 12/08/17 0450 12/08/17 0450 Objective Remarks GENERAL: Well-developed, well-nourished, in no acute distress. alert and orientated HEENT: Head is normocephalic without any lesions or masses noted. Facial features are symmetric. Eyes: Extraocular muscles are intact. Conjunctivae were clear. NECK: Supple without any masses. Trachea midline no deviation. No JVD, CARDIAC: Regular rhythm, regular rate. S1/S2 are heard. No murmurs gallops or rubs. LUNGS: Clear to auscultation bilaterally. No wheeze, rhonchi or rales. No use of accessory muscles on inspiration or expiration. ABDOMEN: Soft, nontender. Nondistended. Bowel sounds heard in all 4 quadrants. No organomegaly or masses. Negative rebound, negative guarding EXTREMITIES: Chronic left lower extremity edema, pulses are equal bilaterally. No cyanosis or clubbing NEUROLOGY: Mood and affect appear appropriate. Cranial nerves II through XII grossly intact. Moving all extremities, speech is clear SKIN: Left lower extremity does have diffuse cellulitis noted to the distal left lower extremity to the calf and distal. Which is significantly improved from initial presentation Urinary Catheter: No Assessment to: Remove Vascular Central Line Catheter: Yes Assessment to: Remove Side: Left Location: Subclavian A/P Assessment and Plan Bacteremia with group B beta strep Likely to recurrent cellulitis of the left lower extremity resulting in septic shock which has resolved This is the second time that patient has had bacteremia with group B beta strep, will need to evaluate for endocarditis Blood cultures +/ with group B beta strep Repeat cultures no growth for 1 day Patient is on vancomycin/penicillin G IV We'll need to obtain echocardiogram Consult infectious disease for recommendations Hyperbilirubinemia, transaminitis, improved Improved with follow-up labs Could be secondary to sepsis/ hypoperfusion/early shock liver Acute kidney injury with hyperkalemia, resolved Likely secondary to sepsis, hypotension, hypoperfusion Renal functions have improved Hypertension Resume home medications now the patient is cleared from sepsis Monitor blood pressure Diabetes Accu-Cheks with sliding scale insulin Diabetic diet Obstructive sleep apnea Patient may use her own CPAP DVT prevention Patient is on Markie Seay Dec 08, 2017 15:16
[2017-12-08 15:43] LABS: CREATININE 0.62 MG/DL (0.50-1.00)
[2017-12-08 16:00] VITALS: BP 135/65; PULSE 70; RESP 28; TEMP 98.2
[2017-12-08] MEDS ORDERED: VANCOMYCIN 1,500 MG/NS 500 ML IV SCH ×2 (18:00)
--- NOTE | 2017-12-08 18:20 | HHI.PR ---
Addendum to Inpatient Note Additional Information pt seen and examined. Full note to follow Meena Gomez MD Dec 08, 2017 18:20
--- NOTE | 2017-12-08 18:25 | PD.ID.CON ---
History of Present Illness Service ID Consult Requested By Onofre Call Reason for Consult GBS bacteremia Primary Care Physician Unknown Diagnoses: History of Present Illness 62 yo female with recurrent LLE cellulits and sepsis presented with hypotension, tachycardia, LLE rapidly devloping edema, erythema She was found septic (fever, leukocytosis, lactic acidemia) 'She grew out group B strep in 1/4 blood clx bottles She was =initially on zosyn, vancomycin SHe improved, transfred to floor and now on vancomycin Review of Systems Except as stated in HPI: all other systems reviewed are Neg Past Family Social History Allergies: Coded Allergies: atorvastatin (Unverified Allergy, Severe, TREMORS, MUSCLE PAIN, 12/05/17) clarithromycin (Unverified Allergy, Severe, RASH, 12/05/17) rivaroxaban (Unverified Adverse Reaction, Unknown, bleeding, 12/05/17) Uncoded Allergies: PAPER TAPE (Allergy, Severe, Rash, 12/20/16) .. Past Medical History Hypertension Diabetes History of stroke with left-sided weakness Chronic left lower extremity lymphedema Hyperlipidemia Diabetes Diabetic neuropathy Recurrent cellulitis History of uterine cancer Morbid obesity with BMI 46.1 Past Surgical History Cholecystectomy Hysterectomy next line Lymph node resection Active Ordered Medications Medications where reviewed in EMR Antibiotics Include: PCN G omaira Family History Reviewed is significant for diabetes and hypertension Social History Patient does live at home with her , denies any tobacco, alcohol or illicit drugs Physical Exam Vital Signs Vital Signs Date Time Temp Pulse Resp B/P (MAP) Pulse Ox O2 Delivery O2 Flow Rate FiO2 12/08/17 16:00 98.2 70 28 135/65 (88) 12/08/17 14:52 68 24 136/66 (89) 12/08/17 08:00 98.3 62 11 132/58 (82) 12/08/17 08:00 93 12/08/17 05:25 14 12/08/17 05:14 98.1 68 12 137/59 (85) 12/08/17 00:00 97.9 68 12 122/56 (78) 94 12/07/17 21:25 20 12/07/17 20:00 74 12/07/17 20:00 98.7 74 15 155/75 (101) 93 Physical Exam CONSTITUTIONAL/GENERAL: This is a morbidly obese patient, in no apparent distress. TUBES/LINES/DRAINS: SKIN: No jaundice, rashes, or lesions. Skin temperature appropriate. Not diaphoretic. HEAD: Atraumatic. Normocephalic. EYES: Pupils equal and round and reactive. Extraocular motions intact. No scleral icterus. No injection or drainage. Fundi not examined. ENT: Hearing grossly normal. Nose without bleeding or purulent drainage. Throat without visible erythema, exudates, masses, or lesions. NECK: Trachea midline. Supple, nontender. No palpable thyroid enlargement or nodularity. CARDIOVASCULAR: Regular rate and rhythm without murmurs, gallops, or rubs. No JVD. Peripheral pulses symmetric. RESPIRATORY/CHEST: Symmetric, unlabored respirations. Clear to auscultation. Breath sounds equal bilaterally. No wheezes, rales, or rhonchi. GASTROINTESTINAL: Abdomen soft, non-tender, nondistended. No hepato-splenomegaly , or palpable masses. No guarding. Bowel sounds present. GENITOURINARY: Without palpable bladder distension. MUSCULOSKELETAL: Extremities without clubbing, cyanosis, + 2-3 + soft pitting edema, much more prominent on LLE with some pinkish erytham extending form dorsum of the foot to the thigh No joint tenderness or effusion noted. No calf tenderness. No mottling or clubbing. LYMPHATICS: No palpable cervical or supraclavicular adenopathy. NEUROLOGICAL: Awake and alert. L side hemiplegia . Follows commands. Clear speech. Moves all extremities. PSYCHIATRIC: No obvious anxiety/depression. no apparent hallucinations or other psychotic thought process. Laboratory Laboratory Tests Test 12/07/17 18:26 12/08/17 04:50 12/08/17 15:12 Vancomycin Level Trough 10.3 White Blood Count 10.9 Red Blood Count 3.85 Hemoglobin 11.2 Hematocrit 33.7 Mean Corpuscular Volume 87.7 Mean Corpuscular Hemoglobin 29.0 Mean Corpuscular Hemoglobin Concent 33.1 Red Cell Distribution Width 12.3 Platelet Count 277 Mean Platelet Volume 8.0 Blood Urea Nitrogen 5 Creatinine 0.58 0.62 Random Glucose 193 Calcium Level 7.9 Sodium Level 138 Potassium Level 3.3 Chloride Level 103 Carbon Dioxide Level 29.6 Anion Gap 5 Estimat Glomerular Filtration Rate 105 98 Date/Time Source Procedure Growth Status 12/07/17 20:15 Blood Peripheral Aerobic Blood Culture - Preliminary NO GROWTH IN 1 DAY Resulted 12/07/17 20:15 Blood Peripheral Anaerobic Blood Culture - Preliminary NO GROWTH IN 1 DAY Resulted 12/05/17 17:11 Nasal Aspirate Influenza Types A,B Antigen ([facility]) - Final NEGATIVE FOR FLU A AND B ANTIGEN.... Complete Result Diagram: 12/08/17 0450 12/08/17 1512 Imaging Last Impressions Chest X-Ray 12/06/17 0006 Signed Impressions: Service Date/Time: Wednesday, December 06, 2017 00:16 - CONCLUSION: 1. Adequate placement of left subclavian central line. Juan David MD Abdomen/Pelvis CT 12/06/17 0000 Signed Impressions: Service Date/Time: Wednesday, December 06, 2017 00:55 - CONCLUSION: 1. Moderate hepatic steatosis. 2. Cholecystectomy. 3. Nonobstructing left renal calculus. 4. Right renal opacity likely benign. Juan David MD Lower Extremity Ultrasound 12/05/17 0000 Signed Impressions: Service Date/Time: Tuesday, December 05, 2017 15:42 - CONCLUSION: Negative exam with no evidence of deep venous thrombosis. The study is suboptimal due to lower extremity swelling and the patient's body habitus. Rashaad Sandy MD Assessment and Plan Assessment and Plan Sepsis GBS bacteremia LLE cellulits PCN G agustin vancomycin Meena Gomez MD Dec 08, 2017 18:25
[2017-12-08 20:00] VITALS: BP 139/64; PULSE 67; RESP 20; TEMP 98.1; O2SAT 91
[2017-12-08] MEDS: ROSUVASTATIN 10 MG PO SCH (20:36)
[2017-12-08] MEDS: GABAPENTIN 400 MG CAP PO SCH (20:37)
[2017-12-09] VITALS: BP 125/58; PULSE 73; RESP 20; TEMP 98.4; O2SAT 93
[2017-12-09] MEDS: PENICILLIN G POTASSIUM INJ 4,000,000 UNITS in SODIUM CHLORIDE 0.9% INJ 100 ML IV SCH ×4 (01:34→13:00)
[2017-12-09 05:55] LABS: AUTOMATED NEUTROPHIL # 6.1 TH/MM3 (1.8-7.7); BASOPHIL # 0.1 TH/MM3 (0-0.2); BASOPHIL % 0.7 % (0.0-2.0); EOSINOPHIL # 0.6 TH/MM3 (0-0.4); EOSINOPHIL % 5.9 % (0.0-4.0); HEMATOCRIT 34.2 % (35.0-46.0); HEMOGLOBIN 11.3 GM/DL (11.6-15.3); LYMPH % 25.1 % (9.0-44.0); LYMPHOCYTE # 2.6 TH/MM3 (1.0-4.8); MEAN CELL VOLUME 87.6 FL (80.0-100.0); MEAN CORPUSCULAR HEMOGLOBIN 28.9 PG (27.0-34.0); MEAN PLATELET VOLUME 7.8 FL (7.0-11.0); MONO % 7.7 % (0.0-8.0); MONOCYTE # 0.8 TH/MM3 (0-0.9); NEUT % 60.6 % (16.0-70.0); PLATELET COUNT 299 TH/MM3 (150-450); RED BLOOD COUNT 3.91 MIL/MM3 (4.00-5.30); WHITE BLOOD COUNT 10.2 TH/MM3 (4.0-11.0)
[2017-12-09 06:07] LABS: BICARBONATE 30.2 MEQ/L (21.0-32.0); CALCIUM 8.3 MG/DL (8.5-10.1); MAGNESIUM 1.7 MG/DL (1.5-2.5)
[2017-12-09 06:11] LABS: CREATININE 0.51 MG/DL (0.50-1.00)
[2017-12-09 08:00] VITALS: BP 159/74; PULSE 72; RESP 18; TEMP 98.4; O2SAT 95
[2017-12-09] MEDS: INSULIN ASPART SUPPLEMENTAL SCALE SQ SCH ×2 (08:00→12:00)
[2017-12-09] MEDS: FUROSEMIDE 20 MG TAB PO SCH (09:28)
[2017-12-09] MEDS: GABAPENTIN 300 MG CAP PO SCH (09:29)
[2017-12-09] MEDS: FAMOTIDINE 20 MG TAB PO SCH (09:29)
[2017-12-09] MEDS: DULoxetine HCl DR 60 MG CAP PO SCH (09:29)
[2017-12-09] MEDS: APIXABAN 5 MG TABLET PO SCH (09:29)
[2017-12-09] MEDS: DOCUSATE SODIUM 50 MG/SENNA 8.6 MG TAB PO SCH (09:30)
[2017-12-09] MEDS: CALCIUM CARBONATE 1.25 GM (CA 500 MG) TAB PO SCH (09:31)
[2017-12-09] MEDS: SODIUM CHLORIDE 0.9% FLUSH 10 ML FLUSH IV FLUSH SCH (09:34)
[2017-12-09] MEDS: ACETAMINOPHEN/HYDROcodone 325 MG/5 MG TAB PO PRN ×2 (09:34→15:26)
[2017-12-09 12:00] VITALS: BP 144/68; PULSE 73; RESP 18; TEMP 98.2; O2SAT 96
--- NOTE | 2017-12-09 12:49 | HHI.DCPOC ---
Discharge Care Plan Diagnosis: (1) Septic shock (2) Bacteremia (3) Cellulitis of leg, left Goals to Promote Your Health * To prevent worsening of your condition and complications * To maintain your health at the optimal level Directions to Meet Your Goals Take your medications as prescribed Follow your dietary instruction Follow activity as directed Keep your appointments as scheduled Take your immunizations and boosters as scheduled If your symptoms worsen call your PCP, if no PCP go to Urgent Care Center or Emergency Room Smoking is Dangerous to Your Health. Avoid second hand smoke Call the 24-hour hour crisis hotline for domestic abuse at Markie Lemus Dec 09, 2017 12:49
--- NOTE | 2017-12-09 13:36 | ECHRPT ---
Indication: RECURRENT BACTEREMIA, EVAL FOR VEGETATIONS CONCLUSIONS Normal left ventricular size. Wall thickness is normal. The left ventricular systolic function is grossly normal on limited imaging. The left atrial size is mildly dilated. Trace mitral valve regurgitation. There is trace tricuspid valve regurgitation. The left ventricular systolic function is normal with an estimated ejection fraction in the range of 60-65%. BP: 125 / 58 HR: 73 Rhythm: Sinus MEASUREMENTS (Male / Female) Normal Values Technical Quality:Fair, Very technically difficult study 2D ECHO LV Diastolic Diameter PLAX 4.7 cm 4.2 - 5.9 / 3.9 - 5.3 cm LV Systolic Diameter PLAX 3.1 cm IVS Diastolic Thickness 1.0 cm 0.6 - 1.0 / 0.6 - 0.9 cm LVPW Diastolic Thickness 1.0 cm 0.6 - 1.0 / 0.6 - 0.9 cm LV Relative Wall Thickness 0.4 RV Internal Dim ED PLAX 2.9 cm LVOT Diameter 1.6 cm Aortic Root Diameter 2.5 cm LA Systolic Diameter LX 3.6 cm 3.0 - 4.0 / 2.7 - 3.8 cm M-MODE AV Cusp Separation MM 1.9 cm DOPPLER AV Peak Velocity 118.0 cm/s AV Peak Gradient 5.6 mmHg AV Mean Gradient 3.0 mmHg AV Velocity Time Integral 27.9 cm LVOT Peak Velocity 78.2 cm/s LVOT Peak Gradient 2.4 mmHg LVOT Velocity Time Integral 22.9 cm AV Area Cont Eq vti 1.7 cm AV Area Cont Eq pk 1.3 cm Mitral E Point Velocity 87.9 cm/s Mitral A Point Velocity 80.0 cm/s Mitral E to A Ratio 1.1 LV E' Lateral Velocity 15.0 cm/s Mitral E to LV E' Lateral Ratio 5.9 LV E' Septal Velocity 8.4 cm/s Mitral E to LV E' Septal Ratio 10.5 TR Peak Velocity 223.0 cm/s TR Peak Gradient 19.9 mmHg Right Atrial Pressure 10.0 mmHg Pulmonary Artery Systolic Pressu 29.9 mmHg Right Ventricular Systolic Press 29.9 mmHg PV Peak Velocity 71.4 cm/s PV Peak Gradient 2.0 mmHg FINDINGS LEFT VENTRICLE Normal left ventricular size. Wall thickness is normal. The left ventricular systolic function is grossly normal on limited imaging. The left ventricular systolic function is normal with an estimated ejection fraction in the range of 60-65%. RIGHT VENTRICLE Normal right ventricular size and systolic function. LEFT ATRIUM The left atrial size is mildly dilated. RIGHT ATRIUM The right atrial size is normal. ATRIAL SEPTUM The interatrial septum not well visualized. AORTA The aortic root and proximal ascending aorta are not well visualized. MITRAL VALVE Trace mitral valve regurgitation. AORTIC VALVE Trileaflet aortic valve. No aortic valve stenosis or regurgitation. TRICUSPID VALVE There is trace tricuspid valve regurgitation. PULMONARY VALVE The pulmonary valve is not well visualized. VESSELS The inferior vena cava was not well visualized. PERICARDIUM No pericardial effusion. Porfirio Angulo MD, FACC (Electronically Signed) Final Date:09 December 2017 13:35
--- NOTE | 2017-12-09 15:26 | HHI.DS ---
Discharge Summary Admission Date Dec 05, 2017 at 16:09 Discharge Date: Dec 09, 2017 Admitting Diagnosis sepsis, hyperglycemia, hypertension, leg cellulitis (1) Septic shock ICD Code: A41.9 - Sepsis, unspecified organism; R65.21 - Severe sepsis with septic shock Diagnosis: Principal Status: Acute (2) Hyperkalemia ICD Code: E87.5 - Hyperkalemia Diagnosis: Principal (3) Lymphedema of left leg ICD Code: I89.0 - Lymphedema of left leg Diagnosis: Principal Status: Chronic (4) Cellulitis of leg, left ICD Code: L03.116 - Cellulitis of left lower extremity Diagnosis: Principal Status: Acute (5) Bacteremia ICD Code: R78.81 - Bacteremia Status: Acute Procedures ECHOCARDIOGRAM CONCLUSIONS Normal left ventricular size. Wall thickness is normal. The left ventricular systolic function is grossly normal on limited imaging. The left atrial size is mildly dilated. Trace mitral valve regurgitation. There is trace tricuspid valve regurgitation. Brief History - From Admission This is a 62-year-old female with known history of hypertension, diabetes, morbid obesity, chronic left lower extremity lymphedema, recurrent cellulitis of left lower leg, CVA with left hemiparesis who presented to hospital because acute onset of redness in the left lower extremity. Patient was in her normal state of health until this morning when she woke up and she noticed that her leg was significantly red so she came to the hospital for evaluation. Upon workup in emergency department patient found to have significant signs for sepsis with septic shock. Patient had white count of 32, 000, tachycardic at 128, blood pressure 85/44, potassium level .1. Continue workup is being performed at this time in the emergency department to evaluate for further septic source. She was given 2 L of IV fluid bolus without any significant change of her blood pressure. Given empiric antibiotics to include vancomycin and Zosyn. Patient is resting carefully in bed. Looks well clinically. She has had a cough recently with sore throat. She did have an episode of nausea and vomiting yesterday. She denies any chest pain, shortness of breath, abdominal pain, diarrhea, constipation. Patient does take Lasix on a daily basis with potassium supplementation and KATIE inhibitor. 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 Patient was admitted to critical care service and admitted to the ICU. CBC/BMP: 12/09/17 0539 12/09/17 0539 Significant Findings Laboratory Tests Test 12/07/17 04:25 12/07/17 18:26 12/08/17 04:50 12/08/17 15:12 White Blood Count 14.1 TH/MM3 (4.0-11.0) Red Blood Count 3.60 MIL/MM3 (4.00-5.30) 3.85 MIL/MM3 (4.00-5.30) Hemoglobin 11.0 GM/DL (11.6-15.3) 11.2 GM/DL (11.6-15.3) Hematocrit 31.7 % (35.0-46.0) 33.7 % (35.0-46.0) Random Glucose 224 MG/DL (74-106) 193 MG/DL (74-106) Calcium Level 8.1 MG/DL (8.5-10.1) 7.9 MG/DL (8.5-10.1) Anion Gap 4 MEQ/L (5-15) Vancomycin Level Trough 10.3 MCG/ML (5.0-10.0) Blood Urea Nitrogen 5 MG/DL (7-18) Potassium Level 3.3 MEQ/L (3.5-5.1) Test 12/09/17 05:39 Red Blood Count 3.91 MIL/MM3 (4.00-5.30) Hemoglobin 11.3 GM/DL (11.6-15.3) Hematocrit 34.2 % (35.0-46.0) Eosinophils (%) (Auto) 5.9 % (0.0-4.0) Eosinophils # (Auto) 0.6 TH/MM3 (0-0.4) Blood Urea Nitrogen 5 MG/DL (7-18) Random Glucose 208 MG/DL (74-106) Calcium Level 8.3 MG/DL (8.5-10.1) Potassium Level 3.4 MEQ/L (3.5-5.1) Imaging Last Impressions Chest X-Ray 12/06/17 0006 Signed Impressions: Service Date/Time: Wednesday, December 06, 2017 00:16 - CONCLUSION: 1. Adequate placement of left subclavian central line. Juan David MD Abdomen/Pelvis CT 12/06/17 0000 Signed Impressions: Service Date/Time: Wednesday, December 06, 2017 00:55 - CONCLUSION: 1. Moderate hepatic steatosis. 2. Cholecystectomy. 3. Nonobstructing left renal calculus. 4. Right renal opacity likely benign. Juan David MD Lower Extremity Ultrasound 12/05/17 0000 Signed Impressions: Service Date/Time: Tuesday, December 05, 2017 15:42 - CONCLUSION: Negative exam with no evidence of deep venous thrombosis. The study is suboptimal due to lower extremity swelling and the patient's body habitus. Rashaad Sandy MD PE at Discharge GENERAL: Well-developed, well-nourished, in no acute distress. alert and orientated HEENT: Head is normocephalic without any lesions or masses noted. Facial features are symmetric. Eyes: Extraocular muscles are intact. Conjunctivae were clear. NECK: Supple without any masses. Trachea midline no deviation. No JVD, CARDIAC: Regular rhythm, regular rate. S1/S2 are heard. No murmurs gallops or rubs. LUNGS: Clear to auscultation bilaterally. No wheeze, rhonchi or rales. No use of accessory muscles on inspiration or expiration. ABDOMEN: Soft, nontender. Nondistended. Bowel sounds heard in all 4 quadrants. No organomegaly or masses. Negative rebound, negative guarding EXTREMITIES: Chronic left lower extremity edema, pulses are equal bilaterally. No cyanosis or clubbing NEUROLOGY: Mood and affect appear appropriate. Cranial nerves II through XII grossly intact. Moving all extremities, speech is clear SKIN: Left lower extremity does have diffuse cellulitis noted to the distal left lower extremity to the calf and distal. Which is significantly improved from initial presentation Hospital Course 62-year-old female who is seen today to assume medical management from critical care team. Patient was originally admitted to hospital on because of septic shock. Patient was admitted the hospital with empirical antibiotics to include vancomycin, Zosyn. Patient did have obvious cellulitis of the left lower extremity. She has significant hypotension that required multiple liters of normal saline to be given to maintain map greater than 65. Patient was admitted to critical care team in transfer to the ICU. Patient did undergo IV fluid boluses, antibiotics until patient has been stabilized. Patient had workup done which did indicate positive blood cultures with group B beta strep and antibiotics were changed from Zosyn to penicillin G. Blood pressure is stable. Patient was transferred to medical service for continued care. Patient will continue follow she remained stable since transferring to medical service. Echocardiogram was performed which did not show any signs of endocarditis. Infectious disease consulted who is going to make antibiotic recommendations. Patient is clinically stable for discharge. Discussed with infectious disease multiple times and indicated the patient be discharged home with amoxicillin 500 mg 3 times daily for 10 days. Upon review of medical records it was also indicated by the primary care pediatrician that since the patient has such rapid onset and development of sepsis she would benefit from a prescription at home for antibiotics not to self treat but to prevent septic shock. A refill was prescribed as well.. Case management indicates that home health care has already been arranged. We will plan discharge accordingly. Pt Condition on Discharge: Stable Discharge Disposition: Disch w/ Home Health Serv Discharge Time: > 30 minutes Discharge Instructions DIET: Follow Instructions for: Heart Healthy Diet Activities you can perform: Regular-No Restrictions Follow up Referrals: PCP Follow-up New Medications: Amoxicillin (Amoxicillin) 500 Mg Tab 500 MG PO TID for Infection for 10 Days, TAB 1 Refill Continued Medications: Apixaban (Eliquis) 5 Mg Tab 5 MG PO BID for prevent stroke for 30 Days, TAB Ascorbic Acid (Vitamin C) 1,000 Mg Tablet.er 1000 MG PO DAILY Calcium Carbonate (Calcium Carbonate) 1,250 Mg Tab 1250 MG PO DAILY for Calcium Supplement, TAB 0 Refills 1,250 mg calcium carbonate (500 mg elemental calcium) Duloxetine DR (Duloxetine DR) 30 Mg Capdr 60 MG PO HS, #30 CAP 0 Refills Fentanyl Patch 72 HR (Duragesic Patch 72 HR) 25 Mcg/Hr Patch 25 MCG T-DERMAL Q72H for Pain Management, #10 PATCH 0 Refills Remove old patch when new one placed. Furosemide (Lasix) 20 Mg Tab 20 MG PO DAILY, #30 TAB 0 Refills Gabapentin (Gabapentin) 300 Mg Cap 300 MG PO DAILY, #60 CAP 0 Refills Gabapentin (Gabapentin) 800 Mg Tab 800 MG PO HS, #90 TAB 0 Refills Insulin Detemir Inj (Levemir Inj) 1,000 unit/ 10 ML Vial 40 UNITS SQ HS for Blood Sugar Management, VIAL 0 Refills Do not mix with any other Insulin. Insulin Detemir Inj (Levemir Inj) 1,000 unit/ 10 ML Vial 5 UNITS SQ DAILY for Blood Sugar Management, VIAL 0 Refills Do not mix with any other Insulin. Insulin Lispro (Humalog) 100 Unit/Ml Cartridge AC breakfast, AC din Lisinopril (Lisinopril) 2.5 Mg Tab 2.5 MG PO DAILY, #30 TAB 0 Refills Multiple Vitamin (Multiple Vitamin) 1 Tab 1 TAB PO DAILY for Nutritional Supplement, TAB 0 Refills Potassium Chloride ER (Potassium Chloride ER) 10 Meq Cap 10 MEQ PO DAILY for Electrolyte Replacement, #30 CAP 0 Refills Rosuvastatin (Rosuvastatin) 10 Mg Tab 10 MG PO HS for Cholesterol Management, TAB 0 Refills Tizanidine (Tizanidine) 4 Mg Tab 4 MG PO BID for Muscle Spasm, #60 TAB 3 Refills Markie Lemus Dec 09, 2017 15:26
[2017-12-09] MEDS ORDERED: AMOX500T PO (15:54)
[2017-12-10] MEDS ORDERED: PHARMACY ORDERED LAB ONE (05:45)
== END 2017-12-09 17:53 | disposition home health service (06) | DRG 871 ==
LOC: PHED 13:33 → PHEDA 16:09 → PHICU 12-06 01:09 → PH3A 12-08 16:36
PROVIDERS: ADMIT Hospitalist; ATTEND Hospitalist
PROC: 02HV33Z Insertion of Infusion Device into Superior Vena Cava, Percutaneous Approach (ICD-10-PCS; principal; 2017-12-06)
DX: A41.9 Sepsis, unspecified organism (principal); R65.21 Severe sepsis with septic shock; N17.9 Acute kidney failure, unspecified; E87.2 Acidosis; I95.9 Hypotension, unspecified; E11.40 Type 2 diabetes mellitus with diabetic neuropathy, unspecified; E11.65 Type 2 diabetes mellitus with hyperglycemia; E87.8 Other disorders of electrolyte and fluid balance, not elsewhere classified; E87.1 Hypo-osmolality and hyponatremia; L03.116 Cellulitis of left lower limb; Z68.42 Body mass index [BMI] 45.0-49.9, adult; I69.354 Hemiplegia and hemiparesis following cerebral infarction affecting left non-dominant side; I89.0 Lymphedema, not elsewhere classified; E87.5 Hyperkalemia; M79.89 Other specified soft tissue disorders; I10 Essential (primary) hypertension; E66.01 Morbid (severe) obesity due to excess calories; E78.5 Hyperlipidemia, unspecified; R60.0 Localized edema; R74.0 Nonspecific elevation of levels of transaminase and lactic acid dehydrogenase [LDH]; E80.6 Other disorders of bilirubin metabolism; K21.9 Gastro-esophageal reflux disease without esophagitis; I48.91 Unspecified atrial fibrillation; G47.33 Obstructive sleep apnea (adult) (pediatric); E78.00 Pure hypercholesterolemia, unspecified; M19.90 Unspecified osteoarthritis, unspecified site; B95.1 Streptococcus, group B, as the cause of diseases classified elsewhere; Z79.01 Long term (current) use of anticoagulants; Z85.41 Personal history of malignant neoplasm of cervix uteri; Z83.3 Family history of diabetes mellitus; Z82.49 Family history of ischemic heart disease and other diseases of the circulatory system; Z99.3 Dependence on wheelchair; I25.2 Old myocardial infarction
CPT/HCPCS: 51702; 71045; 74177; 80048; 80053; 80202; 81001; 82533; 82565; 82948; 83605; 83735; 84100; 84443; 84484; 85007; 85025; 85027; 87040; 87205; 87641; 87804; 93005; 93306; 93971; 94150; 96372; J1170; J1815; J1940; J2405; J2540; J2543; J3370; J3475; J7030; J7040; J7050; P9045; Q9967

== ENCOUNTER 2018-01-22 19:13 | Inpatient (IN) | payer MEDICARE, OTHER, MEDICAID ==
[~2018-01-22] VITALS: Ht 152.4 cm; Wt 111.5 kg
[2018-01-22] VITALS (8 sets, daily range): BP systolic 133–142; BP diastolic 60–81; PULSE 98–102; RESP 15–21; TEMP 97.9–98.5; O2SAT 90–98
[~2018-01-22 19:13] MED LIST changes: +AMOX500T PO; -GLIM2TAB PO; -HUMALOG SQ; +INSU100C; +LISI2.5T3 PO; -OXYC1CAP PO; -PANT40TA3 PO; -PRAV40TA2 PO; +ROSU1TAB6 PO; -TIZA2TAB PO
[2018-01-22] MEDS ORDERED: TIZA4TAB PO (19:40)
[2018-01-22] MEDS ORDERED: PIPERACIL-TAZO 4.5 GM PREMIX 100 ML IV ONE (20:00)
[2018-01-22] MEDS ORDERED: VANCOMYCIN INJ 1,000 MG in SODIUM CHLOR 0.9% 250 ML INJ 250 ML IV ONE (20:00)
[2018-01-22] MEDS ORDERED: MORPHINE SULFATE 4 MG/ML INJ IV PUSH ONE ×2 (20:00→21:00)
--- NOTE | 2018-01-22 20:15 | PD ---
HPI Chief Complaint: Skin Problem Time Seen by Provider: 19:47 Travel History International Travel<30 days: No Contact w/Intl Traveler<30days: No Traveled to known affect area: No History of Present Illness HPI 62-year-old female with history of diabetes, CVA with left-sided deficits, left lower extremity lymphedema status after a hysterectomy and lymphadenectomy in 2006, frequent episodes of left lower extremity cellulitis, here with her for evaluation possible cellulitis to her left lower extremity. Symptoms started suddenly at around 4:30 PM this evening with pain. About 2 hours prior to arrival of the noted the area of erythema and warmth to her left leg and thigh. This is the usual presentation for her cellulitis. According to the the patient has had this frequently in the past, and it usually progresses rapidly. The patient usually does not respond to oral antibiotics and quickly become septic. She has had subjective fevers and chills. No chest pain or dyspnea. No history of DVT or PE. PFSH Past Medical History Hx Anticoagulant Therapy: Yes Arthritis: Yes Asthma: No Autoimmune Disease: No Blood Disorders: No Anxiety: No Depression: Yes Heart Rhythm Problems: Yes Cancer: Yes (UTERINE, L groin lymph node removal causing L leg swelling) Cardiovascular Problems: Yes (AFIB December. 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) Psychiatric: Yes Reproductive: Yes (Uterine CA) Respiratory: Yes (SOB, SLEEP APNEA) Integumentary: No Immunizations Current: Yes Migraines: Yes (not anymore) Myocardial Infarction: Yes Radiation Therapy: No Renal Failure: No Seizures: No Sickle Cell Disease: No Sleep Apnea: Yes (home CPAP machine at bedside) Thyroid Disease: No Ulcer: No Tetanus Vaccination: > 5 Years Influenza Vaccination: No ?: Not Menopausal: Yes : 1 Para: 1 Past Surgical History Abdominal Surgery: Yes (cholecsytectomy ) AICD: No Appendectomy: No Arteriovenous Shunt: No Cardiac Surgery: No Section: Yes (X 1) Cholecystectomy: Yes Ear Surgery: No Endocrine Surgery: No Eye Surgery: No Genitourinary Surgery: No Gynecologic Surgery: Yes (c section, total hysterectomy) Hysterectomy: Yes Insulin Pump: No Joint Replacement: Yes (March 2016) Neurologic Surgery: No Oral Surgery: No Pacemaker: No Thoracic Surgery: No Other Surgery: Yes (sinus surgery) Social History Alcohol Use: No Tobacco Use: No Substance Use: No Allergies-Medications (Allergen,Severity, Reaction): Coded Allergies: atorvastatin (Unverified Allergy, Severe, TREMORS, MUSCLE PAIN, 01/22/18) clarithromycin (Unverified Allergy, Severe, RASH, 01/22/18) rivaroxaban (Unverified Adverse Reaction, Unknown, bleeding, 01/22/18) Uncoded Allergies: PAPER TAPE (Allergy, Severe, Rash, 12/20/16) .. Reported Meds & Prescriptions Reported Meds & Active Scripts Active Duragesic Patch 72 HR (Fentanyl) 25 Mcg/Hr Patch 25 Mcg T-DERMAL Q72H Remove old patch when new one placed. Eliquis (Apixaban) 5 Mg Tab 5 Mg PO BID 30 Days Potassium Chloride ER (Potassium Chloride) 10 Meq Cap 10 Meq PO DAILY Reported Tizanidine (Tizanidine HCl) 4 Mg Tab 4 Mg PO TID Humalog (Insulin Lispro) 100 Unit/Ml Cartridge AC BREAKFAST, AC DIN Rosuvastatin (Rosuvastatin Calcium) 10 Mg Tab 10 Mg PO HS Lisinopril 2.5 Mg Tab 2.5 Mg PO DAILY Levemir Inj (Insulin Detemir) 1,000 unit/ 10 ML Vial 5 Units SQ DAILY Do not mix with any other Insulin. Levemir Inj (Insulin Detemir) 1,000 unit/ 10 ML Vial 40 Units SQ HS Do not mix with any other Insulin. Gabapentin 800 Mg Tab 800 Mg PO HS Vitamin C (Ascorbic Acid) 1,000 Mg Tablet.er 1,000 Mg PO DAILY Multiple Vitamin 1 Tab 1 Tab PO DAILY Calcium Carbonate 1,250 Mg Tab 1,250 Mg PO DAILY 1,250 mg calcium carbonate (500 mg elemental calcium) Lasix (Furosemide) 20 Mg Tab 20 Mg PO DAILY Duloxetine DR (Duloxetine HCl) 30 Mg Capdr 60 Mg PO HS Gabapentin 300 Mg Cap 300 Mg PO DAILY Review of Systems Except as stated in HPI: all other systems reviewed are Neg Physical Exam Narrative GENERAL: Well-developed, well-nourished, awake, alert, no apparent distress. SKIN: Left anterior/medial leg and thigh with large area of warmth and erythema with red streaks into the left inguinal region. No crepitus. No fluctuance or induration. No open wounds. HEAD: Atraumatic. Normocephalic. EYES: Pupils equal and round. No scleral icterus. No injection or drainage. ENT: Mucous membranes pink and moist. NECK: Trachea midline. No JVD. CARDIOVASCULAR: Regular rate and rhythm. Bilateral dorsalis pedis pulses are brisk and equal. RESPIRATORY: No accessory muscle use. Clear to auscultation. Breath sounds equal bilaterally. GASTROINTESTINAL: Abdomen soft, non-tender, nondistended. Hepatic and splenic margins not palpable. MUSCULOSKELETAL: Skin exam as above. Significant edema to the left lower extremity which is no worse than it usually is according to the patient and her . Contractures of the left upper extremity. NEUROLOGICAL: Awake and alert. No obvious cranial nerve deficits. Motor grossly within normal limits. Normal speech. PSYCHIATRIC: Appropriate mood and affect; insight and judgment normal. Data Data Last Documented VS Vital Signs Date Time Temp Pulse Resp B/P (MAP) Pulse Ox O2 Delivery O2 Flow Rate FiO2 01/22/18 20:32 98 15 142/72 (95) 90 Nasal Cannula 2.00 01/22/18 19:21 97.9 Orders Orders Morphine Inj (Morphine Inj) (01/22/18 20:00) Piperacil-Tazo 4.5 Gm Premix (Zosyn 4.5 (01/22/18 20:00) Vancomycin Inj (Vancomycin Inj) (01/22/18 20:00) Sepsis Workup Initiated (01/22/18 ) Complete Blood Count With Diff (01/22/18 19:58) Comprehensive Metabolic Panel (01/22/18 19:58) Lactic Acid Sepsis Protocol (01/22/18 19:58) Blood Culture (01/22/18 19:58) Blood Glucose (01/22/18 19:58) Ecg Monitoring (01/22/18 19:58) Iv Access Insert/Monitor (01/22/18 19:58) Oximetry (01/22/18 19:58) Sodium Chlor 0.9% 1000 Ml Inj (Ns 1000 M (01/22/18 21:00) Sodium Chlor 0.9% 1000 Ml Inj (Ns 1000 M (01/22/18 21:00) Morphine Inj (Morphine Inj) (01/22/18 21:00) Acetaminophen (Tylenol) (01/22/18 21:00) Admit Order (Ed Use Only) (01/22/18 21:10) Vancomycin Consult Pharmacy (Vancomycin (01/22/18 21:15) Vancomycin Inj (Vancomycin Inj) (01/23/18 08:00) Piperacil-Tazo 3.375 Gm Premix (Zosyn 3. (01/23/18 02:00) Morphine Inj (Morphine Inj) (01/22/18 21:15) Admit To Inpatient (01/22/18 ) Vital Signs (Adult) Q4H (01/22/18 21:07) Activity Oob With Assistance (01/22/18 21:07) Diet Heart Healthy (01/23/18 Breakfast) Sodium Chlor 0.9% 1000 Ml Inj (Ns 1000 M (01/22/18 21:07) Sodium Chloride 0.9% Flush (Ns Flush) (01/22/18 21:15) Sodium Chloride 0.9% Flush (Ns Flush) (01/23/18 09:00) Acetaminophen (Tylenol) (01/22/18 21:15) Basic Metabolic Panel (Bmp) (01/23/18 06:00) Complete Blood Count With Diff (01/23/18 06:00) Heparin Inj (Heparin Inj) (01/22/18 21:15) Naloxone Inj (Narcan Inj) (01/22/18 21:15) Docusate Sodium-Senna (Clarice-Colace) (01/23/18 09:00) Magnesium Hydroxide Liq (Milk Of Magnesi (01/22/18 21:15) Sennosides (Senokot) (01/22/18 21:15) Bisacodyl Supp (Dulcolax Supp) (01/22/18 21:15) Lactulose Liq (Lactulose Liq) (01/22/18 21:15) Inpatient Certification (01/22/18 ) Ondansetron Odt (Zofran Odt) (01/22/18 21:15) Resp Bipap / Cpap Non Invas Vt (01/22/18 ) Labs Laboratory Tests Test 01/22/18 20:10 White Blood Count 22.5 TH/MM3 Red Blood Count 4.90 MIL/MM3 Hemoglobin 14.2 GM/DL Hematocrit 42.8 % Mean Corpuscular Volume 87.4 FL Mean Corpuscular Hemoglobin 29.0 PG Mean Corpuscular Hemoglobin Concent 33.2 % Red Cell Distribution Width 12.0 % Platelet Count 317 TH/MM3 Mean Platelet Volume 8.3 FL Neutrophils (%) (Auto) 83.7 % Lymphocytes (%) (Auto) 8.0 % Monocytes (%) (Auto) 4.6 % Eosinophils (%) (Auto) 0.8 % Basophils (%) (Auto) 2.9 % Neutrophils # (Auto) 18.8 TH/MM3 Lymphocytes # (Auto) 1.8 TH/MM3 Monocytes # (Auto) 1.0 TH/MM3 Eosinophils # (Auto) 0.2 TH/MM3 Basophils # (Auto) 0.7 TH/MM3 CBC Comment AUTO DIFF Differential Total Cells Counted 100 Neutrophils % (Manual) 75 % Band Neutrophils % 12 % Lymphocytes % 8 % Monocytes % 5 % Neutrophils # (Manual) 19.6 TH/MM3 Differential Comment FINAL DIFF MANUAL Platelet Estimate NORMAL Platelet Morphology Comment NORMAL Red Cell Morphology Comment NORMAL Blood Urea Nitrogen 9 MG/DL Creatinine 0.71 MG/DL Random Glucose 288 MG/DL Total Protein 7.9 GM/DL Albumin 3.7 GM/DL Calcium Level 9.4 MG/DL Alkaline Phosphatase 129 U/L Aspartate Amino Transf (AST/SGOT) 23 U/L Alanine Aminotransferase (ALT/SGPT) 44 U/L Total Bilirubin 0.4 MG/DL Sodium Level 136 MEQ/L Potassium Level 3.5 MEQ/L Chloride Level 99 MEQ/L Carbon Dioxide Level 28.3 MEQ/L Anion Gap 9 MEQ/L Estimat Glomerular Filtration Rate 83 ML/MIN Lactic Acid Level 2.7 mmol/L MDM Medical Decision Making Medical Screen Exam Complete: Yes Emergency Medical Condition: Yes Medical Record Reviewed: Yes Differential Diagnosis Cellulitis, sepsis, lymphangitis, DVT Narrative Course Initial vital signs show heart rate 90, blood pressure 137/81, pulse ox 98% on room air, oral temp of 97.9F. CBC: WBC 22.5, hemoglobin 14.2, hematocrit 42.8, platelets 317, neutrophils 84% , band neutrophils 12% CMP is remarkable for random glucose 288, otherwise unremarkable. Lactic acid is 2.7. The patient was given 2 L normal saline IV, dose of 1 g of IV vancomycin as well as 4.5 mg of IV Zosyn. Patient and the patient's family were made aware of all findings. She is hemodynamically stable. Chart was reviewed from previous admission last month and shows that the patient rapidly decompensated after being admitted, requiring central IV access and ICU admission. I discussed the case with hospitalist Dr. Plascencia who at this point feels comfortable admitting the patient to her service for further treatment and evaluation of sepsis, left lower extremity cellulitis. Diagnosis Primary Impression: Sepsis Qualified Codes: A41.9 - Sepsis, unspecified organism Additional Impression: Cellulitis of left lower limb Admitting Information Admitting Physician Requests: Admit Jayden Root MD January 22, 2018 20:15
[2018-01-22 20:30] LABS: AUTOMATED NEUTROPHIL # 18.8 TH/MM3 (1.8-7.7); BASOPHIL # 0.7 TH/MM3 (0-0.2); BASOPHIL % 2.9 % (0.0-2.0); EOSINOPHIL # 0.2 TH/MM3 (0-0.4); EOSINOPHIL % 0.8 % (0.0-4.0); HEMATOCRIT 42.8 % (35.0-46.0); HEMOGLOBIN 14.2 GM/DL (11.6-15.3); LYMPHOCYTE # 1.8 TH/MM3 (1.0-4.8); MEAN CELL VOLUME 87.4 FL (80.0-100.0); MEAN CORPUSCULAR HGB CONC 33.2 % (32.0-36.0); MEAN PLATELET VOLUME 8.3 FL (7.0-11.0); MONO % 4.6 % (0.0-8.0); NEUT % 83.7 % (16.0-70.0); PLATELET COUNT 317 TH/MM3 (150-450); WHITE BLOOD COUNT 22.5 TH/MM3 (4.0-11.0)
[2018-01-22 20:35] LABS: CHLORIDE 99 MEQ/L (98-107); SODIUM (NA) 136 MEQ/L (136-145)
[2018-01-22 20:38] LABS: CALCIUM 9.4 MG/DL (8.5-10.1)
[2018-01-22 20:39] LABS: ALBUMIN 3.7 GM/DL (3.4-5.0); BICARBONATE 28.3 MEQ/L (21.0-32.0); BLOOD UREA NITROGEN 9 MG/DL (7-18); GLUCOSE,RANDOM 288 MG/DL (74-106)
[2018-01-22 20:42] LABS: ALT (GPT) 44 U/L (10-53); AST (GOT) 23 U/L (15-37); CREATININE 0.71 MG/DL (0.50-1.00); GLOMERULAR FILTRATION RATE 83 ML/MIN (>89)
[2018-01-22 20:43] LABS: TOTAL BILIRUBIN ADULT 0.4 MG/DL (0.2-1.0)
[2018-01-22 20:44] LABS: TOTAL PROTEIN 7.9 GM/DL (6.4-8.2)
[2018-01-22 20:45] LABS: ALKALINE PHOSPHATASE 129 U/L (45-117)
[2018-01-22 20:47] LABS: LACTIC ACID SEPSIS PROTOCOL 2.7 mmol/L (0.4-2.0)
[2018-01-22 20:52] LABS: BANDS 12 % (0-6); LYMPHOCYTES 8 % (9-44); MONOCYTES 5 % (0-8); NEUTROPHIL # MANUAL DIFF 19.6 TH/MM3 (1.8-7.7); POLYS (SEG NEUTROPHILS) 75 % (16-70)
[2018-01-22] MEDS ORDERED: SODIUM CHLOR 0.9% 1000 ML INJ 1,000 ML IV ONE ×2 (21:00)
[2018-01-22] MEDS ORDERED: ACETAMINOPHEN 325 MG TAB PO ONE (21:00)
[2018-01-22] MEDS ORDERED: MAGNESIUM HYDROXIDE SUSP 30 ML CUP PO PRN (21:15)
[2018-01-22] MEDS ORDERED: SENNOSIDES 8.6 MG TAB PO PRN (21:15)
[2018-01-22] MEDS ORDERED: BISACODYL 10 MG SUPP RECTAL PRN (21:15)
[2018-01-22] MEDS ORDERED: LACTULOSE SYRUP 20 GM/30 ML CUP PO PRN (21:15)
[2018-01-22] MEDS ORDERED: Vancomycin Consult Pharmacy 1 EA OTHER SCH (21:15)
[2018-01-22] MEDS ORDERED: NALOXONE HCL 0.4 MG/ML AMP IV PUSH PRN (21:15)
[2018-01-22] MEDS ORDERED: ACETAMINOPHEN 325 MG TAB PO PRN (21:15)
[2018-01-22] MEDS ORDERED: VANCOMYCIN 1,000 MG/NS 250 ML IV ONE ×2 (23:00)
[2018-01-22] MEDS: HEPARIN SODIUM - SQ 10,000 UNITS/ML VIAL SQ SCH (23:15)
[2018-01-22] MEDS: SODIUM CHLOR 0.9% 1000 ML INJ 1,000 ML IV SCH (23:15)
[2018-01-23] VITALS (21 sets, daily range): BP systolic 94–149; BP diastolic 55–69; PULSE 84–106; RESP 12–21; TEMP 96.5–98.1; O2SAT 94–99
[2018-01-23] MEDS ORDERED: GLUCAGON 1 MG/ML VIAL OTHER PRN (00:30)
[2018-01-23] MEDS ORDERED: DEXTROSE 50% IN WATER 50 ML VIAL(D50) IV PUSH PRN (00:30)
[2018-01-23] MEDS: PIPERACIL-TAZO 3.375 GM PREMIX 50 ML IV SCH ×4 (01:08→19:42)
[2018-01-23] MEDS: SODIUM CHLOR 0.9% 1000 ML INJ 1,000 ML IV SCH ×3 (05:00→19:42)
[2018-01-23 05:34] LABS: AUTOMATED NEUTROPHIL # 25.3 TH/MM3 (1.8-7.7); BASOPHIL # 0.3 TH/MM3 (0-0.2); EOSINOPHIL % 0.1 % (0.0-4.0); HEMATOCRIT 39.6 % (35.0-46.0); HEMOGLOBIN 13.2 GM/DL (11.6-15.3); LYMPH % 3.4 % (9.0-44.0); LYMPHOCYTE # 0.9 TH/MM3 (1.0-4.8); MEAN CELL VOLUME 87.8 FL (80.0-100.0); MEAN CORPUSCULAR HEMOGLOBIN 29.3 PG (27.0-34.0); MEAN CORPUSCULAR HGB CONC 33.4 % (32.0-36.0); MEAN PLATELET VOLUME 8.3 FL (7.0-11.0); MONOCYTE # 0.5 TH/MM3 (0-0.9); NEUT % 93.5 % (16.0-70.0); PLATELET COUNT 273 TH/MM3 (150-450); RED BLOOD COUNT 4.51 MIL/MM3 (4.00-5.30); RED CELL DISTRIBUTION WIDTH 12.3 % (11.6-17.2)
[2018-01-23 05:55] LABS: BICARBONATE 25.9 MEQ/L (21.0-32.0); CALCIUM 8.5 MG/DL (8.5-10.1); CREATININE 0.84 MG/DL (0.50-1.00)
[2018-01-23] MEDS ORDERED: VANCOMYCIN INJ 1,250 MG in SODIUM CHLOR 0.9% 250 ML INJ 250 ML IV SCH (08:00)
[2018-01-23] MEDS: INSULIN ASPART SUPPLEMENTAL SCALE SQ SCH ×4 (08:00→20:03)
[2018-01-23] MEDS: DOCUSATE SODIUM 50 MG/SENNA 8.6 MG TAB PO SCH ×2 (09:00→19:49)
[2018-01-23] MEDS: HEPARIN SODIUM - SQ 10,000 UNITS/ML VIAL SQ SCH (09:30)
[2018-01-23] MEDS: SODIUM CHLORIDE 0.9% FLUSH 10 ML FLUSH IV FLUSH SCH ×2 (09:30→19:49)
[2018-01-23] MEDS: MORPHINE SULFATE 2 MG/ML SYRINGE IV PUSH PRN ×4 (09:39→22:57)
--- NOTE | 2018-01-23 14:18 | HHI.HP ---
[facility] Unknown Admission Diagnosis Sepsis, left lower extremity cellulitis Diagnoses: (1) Sepsis Diagnosis: Principal (2) Cellulitis of left lower limb Diagnosis: Principal Chief Complaint: Acute onset of painful red left leg Travel History International Travel<30 Days: No Contact w/Intl Traveler <30 Da: No Traveled to Known Affected Are: No Sepsis Criteria SIRS Criteria (2 or more): Heart rate over 90, WBC > 92725, < 4000 or > 10% bands Sepsis Criteria (SIRS+source): Infect source susp/known Severe Sepsis (+one): Lactate >2 Criteria Outcome: Meets severe sepsis criteria History of Present Illness This is a 62-year-old female with known history of hypertension, diabetes, morbid obesity, chronic left lower extremity lymphedema, recurrent cellulitis of left lower leg, CVA with left hemiparesis who presented to hospital because of left lower extremity pain and redness. Patient states that she is in normal state of health until last night when she started developing significant pain and noticed that her left lower extremity has gotten significantly red again. She does have history of recurrent cellulitis and knows that she needed to come to the emergency department. Patient came to emergency department for evaluation and found to be in sepsis and recommend admission for further evaluation and management. Review of Systems Musculoskeletal: COMPLAINS OF: Muscle aches Integumentary: COMPLAINS OF: Abnormal pigmentation Except as stated in HPI: all other systems reviewed are Neg Past Family Social History Past Medical History Hypertension Diabetes History of stroke with left-sided weakness Chronic left lower extremity lymphedema Hyperlipidemia Diabetes Diabetic neuropathy Recurrent cellulitis History of cervical cancer Morbid obesity with BMI 46.1 Past Surgical History Cholecystectomy Hysterectomy Lymph node resection Allergies: Coded Allergies: atorvastatin (Unverified Allergy, Severe, TREMORS, MUSCLE PAIN, 01/22/18) clarithromycin (Unverified Allergy, Severe, RASH, 01/22/18) rivaroxaban (Unverified Adverse Reaction, Unknown, bleeding, 01/22/18) Uncoded Allergies: PAPER TAPE (Allergy, Severe, Rash, 12/20/16) .. Family History Family history was reviewed and significant for diabetes and hypertension Social History Patient does live at home with her , denies any tobacco, alcohol or illicit drugs Physical Exam Vital Signs Vital Signs Date Time Temp Pulse Resp B/P (MAP) Pulse Ox O2 Delivery O2 Flow Rate FiO2 01/23/18 12:00 98.1 88 17 121/62 (81) 95 01/23/18 12:00 88 01/23/18 11:00 86 17 115/61 (79) 96 01/23/18 10:00 86 16 121/63 (82) 95 01/23/18 09:00 86 17 117/65 (82) 98 01/23/18 08:01 98 21 01/23/18 08:00 84 01/23/18 08:00 98.0 84 18 128/65 (86) 99 01/23/18 04:00 92 01/23/18 04:00 96.5 92 15 94/57 (69) 99 01/23/18 00:00 106 19 113/66 (82) 96 01/23/18 00:00 106 01/22/18 23:47 94 BiPAP 3.00 01/22/18 23:02 98.5 98 21 133/60 (84) 01/22/18 23:00 102 01/22/18 22:53 01/22/18 22:15 15 01/22/18 22:05 99 16 142/67 (92) 97 Nasal Cannula 2.00 01/22/18 22:00 94 Nasal Cannula 2.00 01/22/18 21:19 100 16 142/70 (94) 97 Nasal Cannula 2.00 01/22/18 21:19 16 01/22/18 20:32 98 15 142/72 (95) 90 Nasal Cannula 2.00 01/22/18 20:28 16 01/22/18 20:19 Room Air 01/22/18 19:21 97.9 98 18 137/81 (99) 98 Physical Exam GENERAL: Well-developed, well-nourished, in no acute distress. alert and orientated HEENT: Head is normocephalic without any lesions or masses noted. Facial features are symmetric. Eyes: Pupils equal round reactive to light. Extraocular muscles are intact. Conjunctivae were clear. Oropharyngeal: Pharynx without any erythema edema. Tongue is midline without deviation. Buccal mucosa is moist without any masses or lesions NECK: Supple without any masses. Trachea midline no deviation. No JVD, no bruits are appreciated CARDIAC: Regular rhythm, regular rate. S1/S2 are heard. No murmurs gallops or rubs. LUNGS: Clear to auscultation bilaterally. No wheeze, rhonchi or rales. No use of accessory muscles on inspiration or expiration. ABDOMEN: Soft, nontender. Nondistended. Bowel sounds heard in all 4 quadrants. No organomegaly or masses. Negative rebound, negative guarding EXTREMITIES: Chronic left lower extremity edema, pulses are equal bilaterally. No cyanosis or clubbing NEUROLOGY: Mood and affect appear appropriate. Cranial nerves II through XII grossly intact. Muscle strength 5/5 in upper and lower extremities bilaterally. Deep tendon reflexes are 2+ in upper and lower extremities bilaterally. SKIN: Left lower extremity does have diffuse cellulitis of the entire left lower extremity there is 2+ edema noted in the left lower extremity Laboratory Laboratory Tests Test 01/22/18 20:10 01/22/18 23:36 01/23/18 04:40 White Blood Count 22.5 27.0 Red Blood Count 4.90 4.51 Hemoglobin 14.2 13.2 Hematocrit 42.8 39.6 Mean Corpuscular Volume 87.4 87.8 Mean Corpuscular Hemoglobin 29.0 29.3 Mean Corpuscular Hemoglobin Concent 33.2 33.4 Red Cell Distribution Width 12.0 12.3 Platelet Count 317 273 Mean Platelet Volume 8.3 8.3 Neutrophils (%) (Auto) 83.7 93.5 Lymphocytes (%) (Auto) 8.0 3.4 Monocytes (%) (Auto) 4.6 2.0 Eosinophils (%) (Auto) 0.8 0.1 Basophils (%) (Auto) 2.9 1.0 Neutrophils # (Auto) 18.8 25.3 Lymphocytes # (Auto) 1.8 0.9 Monocytes # (Auto) 1.0 0.5 Eosinophils # (Auto) 0.2 0.0 Basophils # (Auto) 0.7 0.3 CBC Comment AUTO DIFF DIFF FINAL Differential Total Cells Counted 100 Neutrophils % (Manual) 75 Band Neutrophils % 12 Lymphocytes % 8 Monocytes % 5 Neutrophils # (Manual) 19.6 Differential Comment FINAL DIFF MANUAL Platelet Estimate NORMAL Platelet Morphology Comment NORMAL Red Cell Morphology Comment NORMAL Blood Urea Nitrogen 9 10 Creatinine 0.71 0.84 Random Glucose 288 295 Total Protein 7.9 Albumin 3.7 Calcium Level 9.4 8.5 Alkaline Phosphatase 129 Aspartate Amino Transf (AST/SGOT) 23 Alanine Aminotransferase (ALT/SGPT) 44 Total Bilirubin 0.4 Sodium Level 136 138 Potassium Level 3.5 4.1 Chloride Level 99 104 Carbon Dioxide Level 28.3 25.9 Anion Gap 9 8 Estimat Glomerular Filtration Rate 83 69 Lactic Acid Level 2.7 3.1 Date/Time Source Procedure Growth Status 01/22/18 20:15 Blood Peripheral Aerobic Blood Culture - Preliminary Gram Positive Cocci Resulted 01/22/18 20:15 Blood Peripheral Anaerobic Blood Culture - Preliminary NO GROWTH IN 1 DAY Resulted Result Diagram: 01/23/18 0440 01/23/18 0440 Septic Shock Reassessment Septic shock perfusion: reassessment completed Caprini VTE Risk Assessment Caprini VTE Risk Assessment: Mod/High Risk (score >= 2) Caprini Risk Assessment Model Point Value = 1 Point Value = 2 Point Value = 3 Point Value = 5 Age 41-60 Minor surgery BMI > 25 kg/m2 Swollen legs Varicose veins or History of unexplained or recurrent spontaneous Oral contraceptives or hormone replacement Sepsis (< 1 month) Serious lung disease, including pneumonia (< 1 month) Abnormal pulmonary function Acute myocardial infarction Congestive heart failure (< 1 month) History of inflammatory bowel disease Medical patient at bed rest Age 61-74 Arthroscopic surgery Major open surgery (> 45 min) Laparoscopic surgery (> 45 min) Malignancy Confined to bed (> 72 hours) Immobilizing plaster cast Central venous access Age >= 75 History of VTE Family history of VTE Factor V Leiden Prothrombin [id number] Lupus anticoagulant Anticardiolipin antibodies Elevated serum homocysteine Heparin-induced thrombocytopenia Other congenital or acquired thrombophilia Stroke (< 1 month) Elective arthroplasty Hip, pelvis, or leg fracture Acute spinal cord injury (< 1 month) Prophylaxis Regimen Total Risk Factor Score Risk Level Prophylaxis Regimen 0-1 Low Early ambulation 2 Moderate Order ONE of the following: *Sequential Compression Device (SCD) *Heparin 5000 units SQ BID 3-4 Higher Order ONE of the following medications: *Heparin 5000 units SQ TID *Enoxaparin/Lovenox 40 mg SQ daily (WT < 150 kg, CrCl > 30 mL/min) *Enoxaparin/Lovenox 30 mg SQ daily (WT < 150 kg, CrCl > 10-29 mL/min) *Enoxaparin/Lovenox 30 mg SQ BID (WT < 150 kg, CrCl > 30 mL/min) AND/OR *Sequential Compression Device (SCD) 5 or more Highest Order ONE of the following medications: *Heparin 5000 units SQ TID (Preferred with Epidurals) *Enoxaparin/Lovenox 40 mg SQ daily (WT < 150 kg, CrCl > 30 mL/min) *Enoxaparin/Lovenox 30 mg SQ daily (WT < 150 kg, CrCl > 10-29 mL/min) *Enoxaparin/Lovenox 30 mg SQ BID (WT < 150 kg, CrCl > 30 mL/min) AND *Sequential Compression Device (SCD) Assessment and Plan Assessment and Plan Severe sepsis -Patient met criteria on admission with leukocytosis, tachycardia, lactic acidosis, recurrent cellulitis of left lower extremity -Patient has been started on empiric antibiotic with vancomycin, Zosyn -Blood cultures are positive with gram-positive cocci, group B beta strep Cellulitis, recurrent -Secondary to chronic lymphedema -Patient has history of group B beta strep infection Bacteremia -Likely secondary to cellulitis -Echocardiogram December 09, 2017 did not indicate any vegetation or signs of endocarditis -Continue antibiotics as above -Obtain repeat blood cultures -Consult infectious disease for recommendations Diabetes -Accu-Cheks with sliding scale insulin -Diabetic diet Hypertension -Continue home medications Obstructive sleep apnea -May use own CPAP DVT prevention -Continue Farnaz Physician Certification 2 Midnight Certification Type: Admission for Inpatient Services Order for Inpatient Services The services are ordered in accordance with Medicare regulations or non- Medicare payer requirements, as applicable. In the case of services not specified as inpatient-only, they are appropriately provided as inpatient services in accordance with the 2-midnight benchmark. Estimated LOS (days): 3 days is the estimated time the patient will need to remain in the hospital, assuming treatment plan goals are met and no additional complications. Post-Hospital Plan: Not yet determined Problem Qualifiers (1) Sepsis: Qualified Codes: A41.9 - Sepsis, unspecified organism Markie Lemus January 23, 2018 14:18
[2018-01-23] MEDS ORDERED: PILL SPLITTER OTHER PRN (14:45)
[2018-01-23] MEDS ORDERED: VANCOMYCIN INJ 1,750 MG in SODIUM CHLORID 0.9% 500 ML INJ 500 ML IV SCH (15:00)
[2018-01-23] MEDS ORDERED: fentaNYL 25 MCG/HR PATCH T-DERMAL SCH (15:00)
[2018-01-23] MEDS: fentaNYL 25 MCG/HR PATCH T-DERMAL SCH (16:55)
[2018-01-23] MEDS: GABAPENTIN 400 MG CAP PO SCH (19:46)
[2018-01-23] MEDS: APIXABAN 5 MG TABLET PO SCH (19:47)
[2018-01-23] MEDS: DULoxetine HCl DR 60 MG CAP PO SCH (19:48)
[2018-01-23] MEDS ORDERED: ROSUVASTATIN 10 MG PO SCH (21:00)
--- NOTE | 2018-01-23 21:28 | MB ---
cc: Mick Machado MD DATE: 01/23/2018 DATE OF CONSULTATION: 01/23/2018 REQUESTING PHYSICIAN: Markie Lemus MD REASON: Recurrent left lower extremity cellulitis. HISTORY OF PRESENT ILLNESS: This is a 62-year-old white female with history of CVA and also lymphedema from prior surgery at the left leg. She had treatment for uterine cancer and lymphadenectomy in 2006. She has had recurrent left lower extremity cellulitis. She was just recently treated for cellulitis in 11/2017. At that time, the culture had Group B Strep. She was given a 10 day course of amoxicillin. The patient's noted that she began to experience mild pain in the left posterior thigh and subsequently redness began and quickly spread yesterday to encompass the entire left leg. She was brought to the Emergency Department for evaluation and she was admitted to the hospital and started on IV antibiotics. Cultures were taken, including blood cultures which has grew a Group B-beta strep. Three bottles of four are positive. The patient's white blood cell count was 22.5 yesterday and today it is 27. She is awake and alert. She denies chills or nausea or vomiting. Her temperature is normal. She did have one temperature of 96.5 early this morning. On initial evaluation, lactic acid level was 2.7. PAST MEDICAL HISTORY: Diabetes mellitus, hypertension, hyperlipidemia, diabetic neuropathy, recurrent cellulitis, CVA with left-sided weakness residual, chronic lymphedema of left lower extremity, history of cervical cancer treated with surgery and lymphadenectomy. PAST SURGICAL HISTORY: Hysterectomy, cholecystectomy, . ALLERGIES: CLARITHROMYCIN, RIVAROXABAN, LIPITOR, PAPER TAPE. MEDICATIONS: 1. Piperacillin/tazobactam 2. Vancomycin. 3. Duragesic patch. 4. Morphine sulfate. SOCIAL HISTORY: . No tobacco, no alcohol, no illicit drugs. FAMILY HISTORY: Noncontributory. REVIEW OF SYSTEMS: Negative on a 10-point review except for pain in the left leg. PHYSICAL EXAMINATION: GENERAL: She is a morbidly obese female who is in no acute distress. She is awake and alert and oriented. VITAL SIGNS: Temperature 98.1, BP 114/61, heart rate is 96, respirations 12. HEENT: Head is atraumatic. The face has a flushed appearance. Extraocular movements grossly intact. Pupils are reactive to light. No icterus. There is a red hue to the nose. No drainage from the nose. Oropharynx: Moist mucosa without lesions. NECK: Supple without adenopathy. LUNGS: Clear breath sounds bilaterally. HEART: Regular S1 and S2 without murmurs, rubs or gallops. ABDOMEN: Bowel sounds present, obese, soft, nontender. RECTAL: Not performed. EXTREMITIES: No clubbing or cyanosis. The left lower extremity is swollen and has confluent erythema and is very warm. This extends from the ankle up to approximately mid-thigh. The leg is painful to palpation. The dorsum of the foot has 2+ edema. NEUROLOGIC: Decreased strength at the left upper and lower extremity. PSYCHIATRIC: The patient is calm and cooperative. LABORATORY DATA: WBC 27.0, platelets 273, hemoglobin 13.2, 93% neutrophils. Creatinine 0.84, BUN 10, sodium 138. Patient had liver function tests normal. IMPRESSION: 1. Cellulitis of the left lower extremity. Patient with lymphedema. 2. Sepsis due to Group B-beta Strep with source being the lower extremity cellulitis. 3. Leukocytosis. 4. History of cerebrovascular accident. RECOMMENDATIONS: 1. Discontinue piperacillin/tazobactam. 2. Discontinue vancomycin. 3. Begin intravenous Ancef. 4. Follow the blood cultures to completion and follow repeat blood cultures from 01/23/2018. 5. Monitor the white blood cell count. 6. Monitor the clinical response. Thank you for this consultation. The patient's progress will be monitored and further recommendations will be given upon followup if necessary. MD KVNG Wright/KASSI , 07:50 PM , 09:27 PM
[2018-01-23] MEDS: ceFAZolin 2 GM PREMIX 50 ML IV SCH (21:56)
[2018-01-23] MEDS: ROSUVASTATIN 10 MG PO SCH (21:56)
[2018-01-24] VITALS (13 sets, daily range): BP systolic 120–151; BP diastolic 59–83; PULSE 73–92; RESP 5–16; TEMP 97.6–99.3; O2SAT 95–98
[2018-01-24] MEDS: ceFAZolin 2 GM PREMIX 50 ML IV SCH ×3 (03:48→19:48)
[2018-01-24] MEDS: MORPHINE SULFATE 2 MG/ML SYRINGE IV PUSH PRN ×3 (04:56→12:32)
[2018-01-24] MEDS: SODIUM CHLOR 0.9% 1000 ML INJ 1,000 ML IV SCH (05:07)
[2018-01-24 05:10] LABS: AUTOMATED NEUTROPHIL # 13.7 TH/MM3 (1.8-7.7); BASOPHIL # 0.1 TH/MM3 (0-0.2); BASOPHIL % 0.4 % (0.0-2.0); EOSINOPHIL # 0.3 TH/MM3 (0-0.4); EOSINOPHIL % 1.7 % (0.0-4.0); HEMATOCRIT 36.7 % (35.0-46.0); HEMOGLOBIN 12.6 GM/DL (11.6-15.3); LYMPH % 9.5 % (9.0-44.0); LYMPHOCYTE # 1.6 TH/MM3 (1.0-4.8); MEAN CELL VOLUME 86.8 FL (80.0-100.0); MEAN CORPUSCULAR HEMOGLOBIN 29.7 PG (27.0-34.0); MEAN CORPUSCULAR HGB CONC 34.3 % (32.0-36.0); MEAN PLATELET VOLUME 8.2 FL (7.0-11.0); MONO % 5.1 % (0.0-8.0); MONOCYTE # 0.8 TH/MM3 (0-0.9); NEUT % 83.3 % (16.0-70.0); PLATELET COUNT 283 TH/MM3 (150-450); RED BLOOD COUNT 4.23 MIL/MM3 (4.00-5.30); RED CELL DISTRIBUTION WIDTH 12.9 % (11.6-17.2); WHITE BLOOD COUNT 16.5 TH/MM3 (4.0-11.0)
[2018-01-24 05:26] LABS: CALCIUM 8.5 MG/DL (8.5-10.1)
[2018-01-24 05:27] LABS: BICARBONATE 26.6 MEQ/L (21.0-32.0)
[2018-01-24 05:30] LABS: CREATININE 0.57 MG/DL (0.50-1.00)
[2018-01-24] MEDS: FUROSEMIDE 20 MG TAB PO SCH (08:56)
[2018-01-24] MEDS: INSULIN ASPART SUPPLEMENTAL SCALE SQ SCH ×4 (08:56→19:59)
[2018-01-24] MEDS: POTASSIUM CHLORIDE 10 MEQ CONTROLLED RELEASE TAB PO SCH (08:57)
[2018-01-24] MEDS: DOCUSATE SODIUM 50 MG/SENNA 8.6 MG TAB PO SCH ×2 (08:57→19:47)
[2018-01-24] MEDS: APIXABAN 5 MG TABLET PO SCH ×2 (08:57→19:47)
[2018-01-24] MEDS: LISINOPRIL 5 MG TAB PO SCH (08:57)
[2018-01-24] MEDS: GABAPENTIN 300 MG CAP PO SCH (08:57)
[2018-01-24] MEDS: SODIUM CHLORIDE 0.9% FLUSH 10 ML FLUSH IV FLUSH SCH ×2 (09:00→19:51)
--- NOTE | 2018-01-24 13:14 | HHI.PR ---
Subjective Remarks Patient seen and evaluated for sepsis which is resolved. Secondary to GBS with lower extremity cellulitis/lymphedema Overall improved. 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 Vital Signs Date Time Temp Pulse Resp B/P (MAP) Pulse Ox O2 Delivery O2 Flow Rate FiO2 01/24/18 12:00 78 01/24/18 12:00 76 5 137/71 (93) 95 01/24/18 09:00 84 16 134/83 (100) 95 01/24/18 08:09 96 3.00 01/24/18 08:00 97.6 80 14 151/73 (99) 97 01/24/18 08:00 80 01/24/18 04:00 90 01/24/18 04:00 99.3 90 6 141/67 (91) 96 01/24/18 03:00 88 10 133/59 (83) 97 01/24/18 03:00 88 01/24/18 02:00 84 10 131/61 (84) 97 01/24/18 02:00 84 01/24/18 01:00 92 01/24/18 01:00 92 15 129/63 (85) 97 01/24/18 00:00 98.7 90 10 120/61 (80) 98 01/24/18 00:00 90 01/23/18 23:30 95 01/23/18 23:20 99 3.00 01/23/18 23:00 92 17 132/63 (86) 94 01/23/18 23:00 92 01/23/18 22:00 92 01/23/18 22:00 92 15 140/66 (90) 95 01/23/18 21:00 90 01/23/18 21:00 90 14 149/69 (95) 96 01/23/18 20:30 96 21 01/23/18 20:00 94 01/23/18 20:00 90 18 139/60 (86) 97 01/23/18 16:00 96 01/23/18 16:00 98.1 96 12 114/61 (78) 97 01/23/18 15:00 96 20 141/65 (90) 96 01/23/18 14:00 96 21 120/55 (76) 94 I/O 01/23/18 01/23/18 01/23/18 01/24/18 01/24/18 01/24/18 07:00 15:00 23:00 07:00 15:00 23:00 Intake Total 1000 ml 2627.5 ml 1180 ml Output Total 800 ml 550 ml Balance 1000 ml 1827.5 ml 630 ml Intake Oral 960 ml 480 ml IV Total 1000 ml 1667.5 ml 700 ml Output Urine Total 800 ml 550 ml # Bowel Movements 0 Result Diagram: 01/24/18 0435 01/24/18 0435 Objective Remarks GENERAL: This is a well-nourished, well-developed patient, in no apparent distress. CARDIOVASCULAR: Regular rate and rhythm without murmurs, gallops, or rubs. RESPIRATORY: Clear to auscultation. Breath sounds equal bilaterally. No wheezes , rales, or rhonchi. GASTROINTESTINAL: Abdomen soft, non-tender, nondistended. Normal active bowel sounds MUSCULOSKELETAL: Left lower extremity with edema and erythema, other 3 extremities without clubbing, cyanosis, or edema. NEURO: Alert & Oriented x4 to person, place, time, situation. Moves all ext x4 A/P Problem List: (1) Sepsis ICD Code: A41.9 - Sepsis, unspecified organism Status: Acute Plan: Secondary to cellulitis related to GBS Continue Ancef Follow-up cultures (2) Cellulitis of left lower limb ICD Code: L03.116 - Cellulitis of left lower limb Status: Acute Plan: Patient with a history of lymphedema secondary to lymph node resection related to make malignancy. (3) DM (diabetes mellitus), type 2, uncontrolled ICD Code: E11.65 - Uncontrolled type II diabetes mellitus Status: Chronic Plan: Patient blood sugars uncontrolled We will add Levemir with scheduled NovoLog in addition to sliding scale Assessment and Plan Patient on Eliquis for DVT prophylaxis DC IV fluids Transfer to [facility] Problem Qualifiers (1) Sepsis: Qualified Codes: A41.9 - Sepsis, unspecified organism Clair Keen MD January 24, 2018 13:14
[2018-01-24] MEDS: INSULIN HUMAN REGULAR 1,000 UNITS/10 ML VIAL SQ SCH ×2 (14:10→18:37)
[2018-01-24] MEDS ORDERED: ONDANSETRON HCL 4 MG/2 ML VIAL IV PUSH PRN (15:45)
[2018-01-24] MEDS: ONDANSETRON ODT 4 MG TAB PO PRN (16:04)
[2018-01-24 16:49] LABS: HEMOGLOBIN A1C 10.1 % (4.3-6.0)
--- NOTE | 2018-01-24 17:57 | HHI.IDPN ---
Subjective Subjective Remarks ID FU DR DUKES Antibiotics ANCEF DAY 2 Allergies: Coded Allergies: atorvastatin (Unverified Allergy, Severe, TREMORS, MUSCLE PAIN, 01/22/18) clarithromycin (Unverified Allergy, Severe, RASH, 01/22/18) rivaroxaban (Unverified Adverse Reaction, Unknown, bleeding, 01/22/18) Uncoded Allergies: PAPER TAPE (Allergy, Severe, Rash, 12/20/16) .. Review of Systems Musculoskeletal Musculoskeletal: Swelling Objective . Vital Signs Date Time Temp Pulse Resp B/P (MAP) Pulse Ox O2 Delivery O2 Flow Rate FiO2 01/24/18 16:00 76 01/24/18 16:00 98.3 76 10 133/68 (89) 95 01/24/18 12:00 78 01/24/18 12:00 76 5 137/71 (93) 95 01/24/18 09:00 84 16 134/83 (100) 95 01/24/18 08:09 96 3.00 01/24/18 08:00 97.6 80 14 151/73 (99) 97 01/24/18 08:00 80 01/24/18 04:00 90 01/24/18 04:00 99.3 90 6 141/67 (91) 96 01/24/18 03:00 88 10 133/59 (83) 97 01/24/18 03:00 88 01/24/18 02:00 84 10 131/61 (84) 97 01/24/18 02:00 84 01/24/18 01:00 92 01/24/18 01:00 92 15 129/63 (85) 97 01/24/18 00:00 98.7 90 10 120/61 (80) 98 01/24/18 00:00 90 01/23/18 23:30 95 01/23/18 23:20 99 3.00 01/23/18 23:00 92 17 132/63 (86) 94 01/23/18 23:00 92 01/23/18 22:00 92 01/23/18 22:00 92 15 140/66 (90) 95 01/23/18 21:00 90 01/23/18 21:00 90 14 149/69 (95) 96 01/23/18 20:30 96 21 01/23/18 20:00 94 01/23/18 20:00 90 18 139/60 (86) 97 01/24/18 01/24/18 01/25/18 15:00 23:00 07:00 Intake Total 300 ml Balance 300 ml IV Total 300 ml . Laboratory Tests Test 01/22/18 20:10 01/23/18 04:40 01/24/18 04:35 White Blood Count 22.5 TH/MM3 27.0 TH/MM3 16.5 TH/MM3 Red Blood Count 4.90 MIL/MM3 4.51 MIL/MM3 4.23 MIL/MM3 Hemoglobin 14.2 GM/DL 13.2 GM/DL 12.6 GM/DL Hematocrit 42.8 % 39.6 % 36.7 % Mean Corpuscular Volume 87.4 FL 87.8 FL 86.8 FL Mean Corpuscular Hemoglobin 29.0 PG 29.3 PG 29.7 PG Mean Corpuscular Hemoglobin Concent 33.2 % 33.4 % 34.3 % Red Cell Distribution Width 12.0 % 12.3 % 12.9 % Platelet Count 317 TH/MM3 273 TH/MM3 283 TH/MM3 Mean Platelet Volume 8.3 FL 8.3 FL 8.2 FL Neutrophils (%) (Auto) 83.7 % 93.5 % 83.3 % Lymphocytes (%) (Auto) 8.0 % 3.4 % 9.5 % Monocytes (%) (Auto) 4.6 % 2.0 % 5.1 % Eosinophils (%) (Auto) 0.8 % 0.1 % 1.7 % Basophils (%) (Auto) 2.9 % 1.0 % 0.4 % Neutrophils # (Auto) 18.8 TH/MM3 25.3 TH/MM3 13.7 TH/MM3 Lymphocytes # (Auto) 1.8 TH/MM3 0.9 TH/MM3 1.6 TH/MM3 Monocytes # (Auto) 1.0 TH/MM3 0.5 TH/MM3 0.8 TH/MM3 Eosinophils # (Auto) 0.2 TH/MM3 0.0 TH/MM3 0.3 TH/MM3 Basophils # (Auto) 0.7 TH/MM3 0.3 TH/MM3 0.1 TH/MM3 CBC Comment AUTO DIFF DIFF FINAL DIFF FINAL Differential Total Cells Counted 100 Neutrophils % (Manual) 75 % Band Neutrophils % 12 % Lymphocytes % 8 % Monocytes % 5 % Neutrophils # (Manual) 19.6 TH/MM3 Differential Comment FINAL DIFF MANUAL Platelet Estimate NORMAL Platelet Morphology Comment NORMAL Red Cell Morphology Comment NORMAL Laboratory Tests Test 01/22/18 20:10 01/22/18 23:36 01/23/18 04:40 01/24/18 04:35 Blood Urea Nitrogen 9 MG/DL 10 MG/DL 6 MG/DL Creatinine 0.71 MG/DL 0.84 MG/DL 0.57 MG/DL Random Glucose 288 MG/DL 295 MG/DL 230 MG/DL Total Protein 7.9 GM/DL Albumin 3.7 GM/DL Calcium Level 9.4 MG/DL 8.5 MG/DL 8.5 MG/DL Alkaline Phosphatase 129 U/L Aspartate Amino Transf (AST/SGOT) 23 U/L Alanine Aminotransferase (ALT/SGPT) 44 U/L Total Bilirubin 0.4 MG/DL Sodium Level 136 MEQ/L 138 MEQ/L 138 MEQ/L Potassium Level 3.5 MEQ/L 4.1 MEQ/L 3.4 MEQ/L Chloride Level 99 MEQ/L 104 MEQ/L 104 MEQ/L Carbon Dioxide Level 28.3 MEQ/L 25.9 MEQ/L 26.6 MEQ/L Anion Gap 9 MEQ/L 8 MEQ/L 7 MEQ/L Estimat Glomerular Filtration Rate 83 ML/MIN 69 ML/MIN 107 ML/MIN Lactic Acid Level 2.7 mmol/L 3.1 mmol/L Magnesium Level 2.0 MG/DL Microbiology Date/Time Source Procedure Growth Status 01/23/18 14:51 Blood Peripheral Aerobic Blood Culture - Preliminary NO GROWTH IN 1 DAY Resulted 01/23/18 14:51 Blood Peripheral Anaerobic Blood Culture - Preliminary NO GROWTH IN 1 DAY Resulted 01/23/18 14:42 Blood Peripheral Aerobic Blood Culture - Preliminary NO GROWTH IN 1 DAY Resulted 01/23/18 14:42 Blood Peripheral Anaerobic Blood Culture - Preliminary NO GROWTH IN 1 DAY Resulted 01/22/18 20:15 Blood Peripheral Aerobic Blood Culture - Final Group B Beta Strep Resulted 01/22/18 20:15 Blood Peripheral Anaerobic Blood Culture - Preliminary NO GROWTH IN 2 DAYS Resulted 01/22/18 20:10 Blood Peripheral Aerobic Blood Culture - Final Group B Beta Strep Resulted 01/22/18 20:10 Anaerobic Blood Culture - Preliminary Group B Beta Strep Resulted Physical Exam AWAKE / OX 3 PERRL CHEST CTA CARDIAC RRR ABDOMEN: ACTIVE EXT : LEFT LEG RED SWOLLEN Assessment & Plan Diagnosis: (1) Cellulitis of left lower limb ICD Codes: L03.116 - Cellulitis of left lower limb Status: Acute (2) Sepsis ICD Codes: A41.9 - Sepsis, unspecified organism Status: Acute (3) Bacteremia ICD Codes: R78.81 - Bacteremia Status: Acute Plan: BETA STREP ON ANCEF WILL CONTINUE AND FU FOLLOW REPEAT CULTURES Problem Qualifiers (1) Sepsis: Qualified Codes: A41.9 - Sepsis, unspecified organism Hailey Saldana January 24, 2018 17:57
[2018-01-24] MEDS: DULoxetine HCl DR 60 MG CAP PO SCH (19:47)
[2018-01-24] MEDS: GABAPENTIN 400 MG CAP PO SCH (19:47)
[2018-01-24] MEDS: ROSUVASTATIN 10 MG PO SCH (19:48)
[2018-01-24] MEDS: MORPHINE SULFATE 4 MG/ML INJ IV PUSH PRN (20:34)
[2018-01-24] MEDS ORDERED: INSULIN DETEMIR 100 UNITS/ML VIAL SQ SCH (21:00)
[2018-01-24] MEDS: PROCHLORPERAZINE INJ 10 MG/2 ML VIAL IM PRN (21:33)
[2018-01-25] VITALS (11 sets, daily range): BP systolic 120–151; BP diastolic 62–79; PULSE 70–86; RESP 4–27; TEMP 97.1–98.6; O2SAT 94–99
[2018-01-25] MEDS: ceFAZolin 2 GM PREMIX 50 ML IV SCH ×3 (04:45→20:06)
[2018-01-25] MEDS: MORPHINE SULFATE 4 MG/ML INJ IV PUSH PRN ×5 (05:06→21:04)
[2018-01-25 05:28] LABS: CREATININE 0.36 MG/DL (0.50-1.00)
[2018-01-25] MEDS: LISINOPRIL 5 MG TAB PO SCH (09:24)
[2018-01-25] MEDS: DOCUSATE SODIUM 50 MG/SENNA 8.6 MG TAB PO SCH ×2 (09:24→20:07)
[2018-01-25] MEDS: GABAPENTIN 300 MG CAP PO SCH (09:24)
[2018-01-25] MEDS: APIXABAN 5 MG TABLET PO SCH ×2 (09:24→20:07)
[2018-01-25] MEDS: FUROSEMIDE 20 MG TAB PO SCH (09:24)
[2018-01-25] MEDS: POTASSIUM CHLORIDE 10 MEQ CONTROLLED RELEASE TAB PO SCH (09:24)
[2018-01-25] MEDS: SODIUM CHLORIDE 0.9% FLUSH 10 ML FLUSH IV FLUSH SCH ×2 (09:25→20:07)
[2018-01-25] MEDS: INSULIN ASPART SUPPLEMENTAL SCALE SQ SCH ×4 (09:25→21:03)
[2018-01-25] MEDS: INSULIN HUMAN REGULAR 1,000 UNITS/10 ML VIAL SQ SCH ×4 (09:25→17:48)
--- NOTE | 2018-01-25 13:26 | HHI.PR ---
Subjective Remarks Patient seen and evaluated in follow-up for a left leg cellulitis and lymphedema. Overall improved. Objective Vitals Vital Signs Date Time Temp Pulse Resp B/P (MAP) Pulse Ox O2 Delivery O2 Flow Rate FiO2 01/25/18 12:00 86 01/25/18 09:46 22 01/25/18 09:00 97.2 72 27 120/67 (84) 99 01/25/18 08:00 79 01/25/18 04:45 97.9 82 15 131/76 (94) 98 01/25/18 04:00 75 01/25/18 04:00 98 Nasal Cannula 2.00 01/25/18 00:00 70 01/25/18 00:00 98.6 74 13 151/68 (95) 99 01/24/18 23:15 Nasal Cannula 2.00 01/24/18 20:30 98 21 01/24/18 20:21 73 01/24/18 20:00 98.0 82 12 123/69 (87) 95 01/24/18 16:00 76 01/24/18 16:00 98.3 76 10 133/68 (89) 95 I/O 01/24/18 01/24/18 01/24/18 01/25/18 01/25/18 01/25/18 07:00 15:00 23:00 07:00 15:00 23:00 Intake Total 1180 ml 1020 ml Output Total 550 ml 800 ml 1100 ml Balance 630 ml 220 ml -1100 ml Intake Oral 480 ml 720 ml IV Total 700 ml 300 ml Output Urine Total 550 ml 800 ml 1100 ml # Bowel Movements 0 Result Diagram: 01/24/18 0435 01/25/18 0455 Objective Remarks GENERAL: This is a well-nourished, well-developed patient, in no apparent distress. CARDIOVASCULAR: Regular rate and rhythm without murmurs, gallops, or rubs. RESPIRATORY: Clear to auscultation. Breath sounds equal bilaterally. No wheezes , rales, or rhonchi. GASTROINTESTINAL: Abdomen soft, non-tender, nondistended. Normal active bowel sounds MUSCULOSKELETAL: Left lower extremity with improvement in edema and erythema, left upper extremity post stroke with contractions, other 2 extremities without clubbing, cyanosis, or edema. NEURO: Alert & Oriented x4 to person, place, time, situation. Moves all ext x4 A/P Problem List: (1) Sepsis ICD Code: A41.9 - Sepsis, unspecified organism Status: Acute Plan: Secondary to cellulitis related to GBS Continue Ancef Follow-up cultures (2) Cellulitis of left lower limb ICD Code: L03.116 - Cellulitis of left lower limb Status: Acute Plan: Patient with a history of lymphedema secondary to lymph node resection related to previous malignancy. (3) DM (diabetes mellitus), type 2, uncontrolled ICD Code: E11.65 - Uncontrolled type II diabetes mellitus Status: Chronic Plan: Improved with Levemir (patient poorly adherent with diet), sliding skill and NovoLog will continue to titrate for effect as patient is on 40 units of Levemir Hemoglobin A1c is 10 diabetic educator consultation pending Assessment and Plan Patient on Eliquis for DVT prophylaxis DC IV fluids Transfer to [facility] Problem Qualifiers (1) Sepsis: Qualified Codes: A41.9 - Sepsis, unspecified organism Clair Keen MD January 25, 2018 13:26
--- NOTE | 2018-01-25 19:08 | HHI.IDPN ---
Subjective Subjective Remarks Feels better but left leg still painful/ heavy Vomited last night Antibiotics ANCEF DAY 3 Lines Peripheral Past Medical History CVA Recurrent cellulitis Allergies: Coded Allergies: atorvastatin (Unverified Allergy, Severe, TREMORS, MUSCLE PAIN, 01/22/18) clarithromycin (Unverified Allergy, Severe, RASH, 01/22/18) rivaroxaban (Unverified Adverse Reaction, Unknown, bleeding, 01/22/18) Uncoded Allergies: PAPER TAPE (Allergy, Severe, Rash, 12/20/16) .. Objective . Vital Signs Date Time Temp Pulse Resp B/P (MAP) Pulse Ox O2 Delivery O2 Flow Rate FiO2 01/25/18 18:38 97.1 84 18 131/62 (85) 94 01/25/18 17:06 22 01/25/18 16:00 74 4 94 01/25/18 16:00 83 01/25/18 13:00 72 21 136/79 (98) 98 01/25/18 12:00 86 01/25/18 09:00 97.2 72 27 120/67 (84) 99 01/25/18 08:00 95 Nasal Cannula 2.00 01/25/18 08:00 79 01/25/18 04:45 97.9 82 15 131/76 (94) 98 01/25/18 04:00 75 01/25/18 04:00 98 Nasal Cannula 2.00 01/25/18 00:00 70 01/25/18 00:00 98.6 74 13 151/68 (95) 99 01/24/18 23:15 Nasal Cannula 2.00 01/24/18 20:30 98 21 01/24/18 20:21 73 01/24/18 20:00 98.0 82 12 123/69 (87) 95 01/25/18 01/25/18 01/26/18 14:59 22:59 06:59 Intake Total 730 ml Output Total 460 ml Balance 270 ml Intake Oral 480 ml IV Total 250 ml Output Urine Total 460 ml . Laboratory Tests Test 01/24/18 04:35 White Blood Count 16.5 TH/MM3 Red Blood Count 4.23 MIL/MM3 Hemoglobin 12.6 GM/DL Hematocrit 36.7 % Mean Corpuscular Volume 86.8 FL Mean Corpuscular Hemoglobin 29.7 PG Mean Corpuscular Hemoglobin Concent 34.3 % Red Cell Distribution Width 12.9 % Platelet Count 283 TH/MM3 Mean Platelet Volume 8.2 FL Neutrophils (%) (Auto) 83.3 % Lymphocytes (%) (Auto) 9.5 % Monocytes (%) (Auto) 5.1 % Eosinophils (%) (Auto) 1.7 % Basophils (%) (Auto) 0.4 % Neutrophils # (Auto) 13.7 TH/MM3 Lymphocytes # (Auto) 1.6 TH/MM3 Monocytes # (Auto) 0.8 TH/MM3 Eosinophils # (Auto) 0.3 TH/MM3 Basophils # (Auto) 0.1 TH/MM3 CBC Comment DIFF FINAL Differential Comment Laboratory Tests Test 01/24/18 04:35 01/25/18 04:55 Blood Urea Nitrogen 6 MG/DL Creatinine 0.57 MG/DL 0.36 MG/DL Random Glucose 230 MG/DL Calcium Level 8.5 MG/DL Magnesium Level 2.0 MG/DL Sodium Level 138 MEQ/L Potassium Level 3.4 MEQ/L Chloride Level 104 MEQ/L Carbon Dioxide Level 26.6 MEQ/L Anion Gap 7 MEQ/L Estimat Glomerular Filtration Rate 107 ML/MIN 183 ML/MIN Hemoglobin A1c 10.1 % Microbiology Date/Time Source Procedure Growth Status 01/23/18 14:51 Blood Peripheral Aerobic Blood Culture - Preliminary NO GROWTH IN 2 DAYS Resulted 01/23/18 14:51 Blood Peripheral Anaerobic Blood Culture - Preliminary NO GROWTH IN 2 DAYS Resulted 01/23/18 14:42 Blood Peripheral Aerobic Blood Culture - Preliminary NO GROWTH IN 2 DAYS Resulted 01/23/18 14:42 Blood Peripheral Anaerobic Blood Culture - Preliminary NO GROWTH IN 2 DAYS Resulted 01/22/18 20:15 Blood Peripheral Aerobic Blood Culture - Final Group B Beta Strep Resulted 01/22/18 20:15 Blood Peripheral Anaerobic Blood Culture - Preliminary NO GROWTH IN 3 DAYS Resulted 01/22/18 20:10 Blood Peripheral Aerobic Blood Culture - Final Group B Beta Strep Complete 01/22/18 20:10 Anaerobic Blood Culture - Final Group B Beta Strep Complete Physical Exam AWAKE / OX 3 PERRL CHEST CTA CARDIAC RRR ABDOMEN: ACTIVE EXT : LEFT LEG : redness and swelling slowly improving Assessment & Plan Diagnosis: (1) Septicemia due to group B Streptococcus ICD Codes: A40.1 - Sepsis due to streptococcus, group B Status: Acute Plan: Repeat blood cultures remain negative Continue IV Cefazolin for now Check Echocardiogram (2) Cellulitis of left lower limb ICD Codes: L03.116 - Cellulitis of left lower limb Status: Acute Malgorzata Yoder MD January 25, 2018 19:08
[2018-01-25] MEDS: GABAPENTIN 400 MG CAP PO SCH (20:07)
[2018-01-25] MEDS ORDERED: PHARMACY ORDERED LAB ONE (20:45)
[2018-01-25] MEDS ORDERED: INSULIN DETEMIR 100 UNITS/ML VIAL SQ SCH ×2 (21:00)
[2018-01-25] MEDS: ROSUVASTATIN 10 MG PO SCH (21:01)
[2018-01-25] MEDS: DULoxetine HCl DR 60 MG CAP PO SCH (21:01)
[2018-01-25] MEDS: SODIUM CHLORIDE 0.9% FLUSH 10 ML FLUSH IV FLUSH PRN (21:05)
[2018-01-25] MEDS: ONDANSETRON ODT 4 MG TAB PO PRN (21:10)
[2018-01-26] VITALS (8 sets, daily range): BP systolic 132–140; BP diastolic 71–78; PULSE 79–85; RESP 20–22; TEMP 95.8–98.3; O2SAT 90–93
[2018-01-26] MEDS: MORPHINE SULFATE 4 MG/ML INJ IV PUSH PRN ×4 (01:09→21:41)
[2018-01-26] MEDS: SODIUM CHLORIDE 0.9% FLUSH 10 ML FLUSH IV FLUSH PRN ×2 (01:10→04:31)
[2018-01-26] MEDS: ceFAZolin 2 GM PREMIX 50 ML IV SCH ×3 (03:39→21:21)
[2018-01-26] MEDS: ONDANSETRON ODT 4 MG TAB PO PRN ×2 (04:28→11:56)
[2018-01-26] MEDS: PROCHLORPERAZINE INJ 10 MG/2 ML VIAL IM PRN (05:49)
[2018-01-26] MEDS: INSULIN ASPART SUPPLEMENTAL SCALE SQ SCH ×4 (07:45→21:34)
[2018-01-26] MEDS: SODIUM CHLORIDE 0.9% FLUSH 10 ML FLUSH IV FLUSH SCH ×2 (08:19→21:23)
[2018-01-26] MEDS: APIXABAN 5 MG TABLET PO SCH ×2 (08:20→21:23)
[2018-01-26] MEDS: DOCUSATE SODIUM 50 MG/SENNA 8.6 MG TAB PO SCH ×2 (08:20→21:23)
[2018-01-26] MEDS: GABAPENTIN 300 MG CAP PO SCH (08:20)
[2018-01-26] MEDS: FUROSEMIDE 20 MG TAB PO SCH (08:20)
[2018-01-26] MEDS: POTASSIUM CHLORIDE 10 MEQ CONTROLLED RELEASE TAB PO SCH (08:20)
[2018-01-26] MEDS: LISINOPRIL 5 MG TAB PO SCH (08:21)
[2018-01-26] MEDS: INSULIN HUMAN REGULAR 1,000 UNITS/10 ML VIAL SQ SCH ×3 (10:19→17:34)
--- NOTE | 2018-01-26 11:13 | HHI.PR ---
Subjective Remarks Patient seen and evaluated in follow-up for left lower extremity lymphedema. Patient complaining of nausea and vomiting. No bowel movements. Objective Vitals Vital Signs Date Time Temp Pulse Resp B/P (MAP) Pulse Ox O2 Delivery O2 Flow Rate FiO2 01/26/18 08:29 19 01/26/18 08:15 93 21 01/26/18 07:30 97.2 81 20 139/78 (98) 92 01/26/18 00:00 98.3 80 22 139/74 (95) 90 01/25/18 21:45 95 Nasal Cannula 2.00 01/25/18 20:00 98.0 78 20 136/72 (93) 95 01/25/18 18:38 97.1 84 18 131/62 (85) 94 01/25/18 16:00 74 4 94 01/25/18 16:00 83 01/25/18 13:00 72 21 136/79 (98) 98 01/25/18 12:00 86 I/O 01/25/18 01/25/18 01/25/18 01/26/18 01/26/18 01/26/18 06:59 14:59 22:59 06:59 14:59 22:59 Intake Total 1150 ml Output Total 1100 ml 460 ml 300 ml Balance -1100 ml 690 ml -300 ml Intake Oral 900 ml IV Total 250 ml Output Urine Total 1100 ml 460 ml 300 ml # Bowel Movements 0 Result Diagram: 01/24/18 0435 01/25/18 0455 Objective Remarks GENERAL: This is a well-nourished, well-developed patient, in no apparent distress. CARDIOVASCULAR: Regular rate and rhythm without murmurs, gallops, or rubs. RESPIRATORY: Clear to auscultation. Breath sounds equal bilaterally. No wheezes , rales, or rhonchi. GASTROINTESTINAL: Abdomen soft, non-tender, nondistended. Hypoactive bowel sounds MUSCULOSKELETAL: Left lower extremity with improvement in edema and erythema, left upper extremity post stroke with contractions, other 2 extremities without clubbing, cyanosis, or edema. NEURO: Alert & Oriented x4 to person, place, time, situation. Moves all ext x4 A/P Problem List: (1) Sepsis ICD Code: A41.9 - Sepsis, unspecified organism Status: Acute Plan: Secondary to cellulitis related to GBS Continue Ancef Follow-up cultures Echocardiogram pending ID consult appreciated (2) Cellulitis of left lower limb ICD Code: L03.116 - Cellulitis of left lower limb Status: Acute Plan: Patient with a history of lymphedema secondary to lymph node resection related to previous malignancy. Continue with current antibiotics and plan as above (3) DM (diabetes mellitus), type 2, uncontrolled ICD Code: E11.65 - Uncontrolled type II diabetes mellitus Status: Chronic Plan: Improved with Levemir (patient poorly adherent with diet), sliding skill and NovoLog will continue to titrate for effect as patient is on 40 units of Levemir Hemoglobin A1c is 10 childbirth educator consultation pending (4) Nausea & vomiting ICD Code: R11.2 - Nausea with vomiting, unspecified Status: Acute Plan: Rule out ileus We will add laxative Assessment and Plan Patient on Eliquis for DVT prophylaxis DC IV fluids Transfer to [facility] Problem Qualifiers (1) Sepsis: Qualified Codes: A41.9 - Sepsis, unspecified organism Clair Keen MD January 26, 2018 11:12
[2018-01-26] MEDS ORDERED: BISACODYL EC 5 MG TABEC PO ONE (11:30)
--- NOTE | 2018-01-26 13:32 | RADRPT ---
EXAM DATE/TIME: 01/26/2018 12:54 [place] COMPARISON: No previous studies available for comparison. INDICATIONS : Vomiting. MEDICAL HISTORY : Cerebrovascular disease. Gastroesophageal reflux disease. Uterine cancer. Diabetes SURGICAL HISTORY : Cholecystectomy. Hysterectomy.Left hip. ENCOUNTER: Initial ACUITY: 2 days PAIN SCORE: 1/10 LOCATION: Bilateral abdomen FINDINGS: Supine and upright views of the abdomen were performed. The abdominal bowel gas pattern is nonspecif ic. There are some air-filled nondilated loops of large and small bowel. There is stool throughout th e colon which can be traced to the rectum. No definite free air. There degenerative changes involving the lumbar spine. Left hip prosthesis in place. Mild left lower lung infiltrate. There is elevation of the right hemidiaphragm.. CONCLUSION: Bowel gas pattern nonspecific. No evidence of any definite obstruction. Piyush Resendiz MD on January 26, 2018 at 13:29 Board Certified Radiologist. This report was verified electronically.
[2018-01-26] MEDS ORDERED: REMOVE OLD DURAGESIC (FENTANYL) PATCH T-DERMAL SCH ×2 (15:00→17:00)
[2018-01-26] MEDS: fentaNYL 25 MCG/HR PATCH T-DERMAL SCH (16:30)
[2018-01-26] MEDS: DULoxetine HCl DR 60 MG CAP PO SCH (21:23)
[2018-01-26] MEDS: GABAPENTIN 400 MG CAP PO SCH (21:23)
[2018-01-26] MEDS: ROSUVASTATIN 10 MG PO SCH (21:24)
[2018-01-26] MEDS: INSULIN DETEMIR 100 UNITS/ML VIAL SQ SCH (21:27)
[2018-01-27] MEDS: ceFAZolin 2 GM PREMIX 50 ML IV SCH ×2 (05:18→11:36)
[2018-01-27 08:00] VITALS: BP 145/77; PULSE 78; RESP 18; TEMP 97.7; O2SAT 96
[2018-01-27] MEDS: INSULIN ASPART SUPPLEMENTAL SCALE SQ SCH ×2 (08:06→11:47)
[2018-01-27] MEDS: INSULIN DETEMIR 100 UNITS/ML VIAL SQ SCH (08:06)
[2018-01-27] MEDS: DOCUSATE SODIUM 50 MG/SENNA 8.6 MG TAB PO SCH (08:07)
[2018-01-27] MEDS: GABAPENTIN 300 MG CAP PO SCH (08:07)
[2018-01-27] MEDS: FUROSEMIDE 20 MG TAB PO SCH (08:07)
[2018-01-27] MEDS: POTASSIUM CHLORIDE 10 MEQ CONTROLLED RELEASE TAB PO SCH (08:07)
[2018-01-27] MEDS: LISINOPRIL 5 MG TAB PO SCH (08:08)
[2018-01-27] MEDS: APIXABAN 5 MG TABLET PO SCH (08:08)
[2018-01-27 08:10] VITALS: O2SAT 92
[2018-01-27] MEDS: SODIUM CHLORIDE 0.9% FLUSH 10 ML FLUSH IV FLUSH SCH (08:14)
[2018-01-27] MEDS: INSULIN HUMAN REGULAR 1,000 UNITS/10 ML VIAL SQ SCH ×2 (09:36→11:46)
--- NOTE | 2018-01-27 11:55 | HHI.PR ---
Subjective Remarks Patient is seen and treated for acute cellulitis of left lower extremity. Overall improved. Lymphedema improved with elevation. Patient education provided at the bedside for discharge planning. Echocardiogram still pending Blood cultures remain negative Objective Vitals Vital Signs Date Time Temp Pulse Resp B/P (MAP) Pulse Ox O2 Delivery O2 Flow Rate FiO2 01/27/18 08:10 92 21 01/27/18 08:00 97.7 78 18 145/77 (99) 96 01/26/18 23:55 98.2 85 20 134/71 (92) 93 01/26/18 20:57 93 21 01/26/18 20:32 95.8 80 20 140/77 (98) 93 01/26/18 17:35 18 01/26/18 15:00 96.4 79 20 135/75 (95) 92 I/O 01/26/18 01/26/18 01/26/18 01/27/18 01/27/18 01/27/18 06:59 14:59 22:59 06:59 14:59 22:59 Intake Total 600 ml 150 ml Output Total 300 ml 550 ml Balance -300 ml 50 ml 150 ml Intake Oral 600 ml IV Total 150 ml Output Urine Total 300 ml 550 ml # Voids 1 # Bowel Movements 0 Result Diagram: 01/24/18 0435 01/25/18 0455 Imaging Last Impressions Abdomen X-Ray 01/26/18 0000 Signed Impressions: Service Date/Time: January 12:54 - CONCLUSION: Bowel gas pattern nonspecific. No evidence of any definite obstruction. Piyush Resendiz MD Objective Remarks GENERAL: This is a well-nourished, well-developed patient, in no apparent distress. CARDIOVASCULAR: Regular rate and rhythm without murmurs, gallops, or rubs. RESPIRATORY: Clear to auscultation. Breath sounds equal bilaterally. No wheezes , rales, or rhonchi. GASTROINTESTINAL: Abdomen soft, non-tender, nondistended. Hypoactive bowel sounds MUSCULOSKELETAL: Left lower extremity with significant improvement in edema and erythema, left upper extremity post stroke with contractions, other 2 extremities without clubbing, cyanosis, or edema. NEURO: Alert & Oriented x4 to person, place, time, situation. Moves all ext x4 A/P Problem List: (1) Sepsis ICD Code: A41.9 - Sepsis, unspecified organism Status: Acute Plan: Secondary to cellulitis related to GBS Continue Ancef Follow-up cultures Echocardiogram pending ID consult appreciated (2) Cellulitis of left lower limb ICD Code: L03.116 - Cellulitis of left lower limb Status: Acute Plan: Patient with a history of lymphedema secondary to lymph node resection related to previous malignancy. Continue with current antibiotics and plan as above (3) DM (diabetes mellitus), type 2, uncontrolled ICD Code: E11.65 - Uncontrolled type II diabetes mellitus Status: Chronic Plan: Improved with Levemir (patient poorly adherent with diet), sliding skill and NovoLog will continue to titrate for effect as patient is on 40 units of Levemir Hemoglobin A1c is 10 corporate event planner consultation as outpatient (4) Nausea & vomiting ICD Code: R11.2 - Nausea with vomiting, unspecified Status: Acute Plan: No evidence of ileus Continue MiraLAX Assessment and Plan Patient on Eliquis for DVT prophylaxis DC IV fluids Transfer to [facility] Problem Qualifiers (1) Sepsis: Qualified Codes: A41.9 - Sepsis, unspecified organism Clair Keen MD January 27, 2018 11:55
--- NOTE | 2018-01-27 11:56 | HHI.FF ---
Face to Face Verification Diagnosis: (1) Muscle spasm of left lower extremity (2) Contracture of muscle of left upper arm (3) Diabetes mellitus (4) HTN (hypertension) Physical Therapy Order: Evaluate and Treat, Improve ambulation, Strength and gait training Occupational Therapy Order: Evaluate and Treat, Improve ADL Home Health Nursing Order: Medical education Diabetic education Nursing assessment with vital signs Telehealth I have seen patient Louise Parker on 01/27/18. My clinical findings support the need for the requested home health care services because: Ltd mobility - disease progression I certify that my clinical findings support that this patient is homebound because: Unsteady gait/balance Lymphedema therapy Clair Keen MD January 27, 2018 11:56
[2018-01-27] MEDS ORDERED: LEVA750T9 PO (11:59)
[2018-01-27] MEDS ORDERED: Polyethylene Glycol PO (11:59)
[2018-01-27 12:00] VITALS: BP 138/70; PULSE 75; RESP 18; TEMP 97.3; O2SAT 95
[2018-01-27] MEDS ORDERED: LACTULOSE SYRUP 20 GM/30 ML CUP PO ONE (12:00)
[2018-01-27] MEDS ORDERED: POLYETHYLENE GLYCOL 17 GM PKG PO ONE (12:00)
--- NOTE | 2018-01-27 13:40 | ECHRPT ---
Indication: SEPSIS ENDOCARDITIS CONCLUSIONS The transthoracic study is normal by two-dimensional, color flow imaging and Doppler interrogation. BP: / HR: Rhythm: MEASUREMENTS (Male / Female) Normal Values Technical Quality: 2D ECHO LV Diastolic Diameter PLAX 4.2 cm 4.2 - 5.9 / 3.9 - 5.3 cm LV Systolic Diameter PLAX 2.9 cm IVS Diastolic Thickness 0.9 cm 0.6 - 1.0 / 0.6 - 0.9 cm LVPW Diastolic Thickness 0.7 cm 0.6 - 1.0 / 0.6 - 0.9 cm LV Relative Wall Thickness 0.4 RV Internal Dim ED PLAX 1.8 cm LA Systolic Diameter LX 3.4 cm 3.0 - 4.0 / 2.7 - 3.8 cm DOPPLER Mitral E Point Velocity 89.9 cm/s Mitral A Point Velocity 99.3 cm/s Mitral E to A Ratio 0.9 TR Peak Velocity 236.0 cm/s TR Peak Gradient 22.3 mmHg FINDINGS LEFT VENTRICLE Normal left ventricular size and wall thickness. The left ventricular systolic function is normal wi th an estimated ejection fraction in the range of 60-65%. Left ventricular diastolic function parameters a re normal. RIGHT VENTRICLE Normal right ventricular size and systolic function. LEFT ATRIUM The left atrial size is normal. RIGHT ATRIUM The right atrial size is normal. ATRIAL SEPTUM Normal atrial septal thickness without atrial level shunting by limited color doppler interrogation. AORTA The aortic root and proximal ascending aorta are normal in size on limited imaging. MITRAL VALVE Structurally normal mitral valve. No mitral valve stenosis or regurgitation. AORTIC VALVE Trileaflet aortic valve. No aortic valve stenosis or regurgitation. TRICUSPID VALVE Structurally normal tricuspid valve. No tricuspid valve stenosis or regurgitation. PULMONARY VALVE The pulmonary valve is not well visualized. VESSELS The inferior vena cava is normal in size. PERICARDIUM No pericardial effusion. Porfirio Angulo MD, FACC (Electronically Signed) Final Date:27 Jan 2018 13:39
[2018-01-27] MEDS ORDERED: INSULIN DETEMIR 100 UNITS/ML VIAL SQ SCH (21:00)
== END 2018-01-27 16:55 | disposition home health service (06) | DRG 872 ==
LOC: PHED 19:13 → PHEDA 21:11 → PHICU 23:06 → PH3B 01-25 18:27
PROVIDERS: ADMIT Hospitalist; ATTEND Hospitalist
DX: A40.1 Sepsis due to streptococcus, group B (principal); R65.20 Severe sepsis without septic shock; E87.2 Acidosis; I69.354 Hemiplegia and hemiparesis following cerebral infarction affecting left non-dominant side; L03.116 Cellulitis of left lower limb; Z68.42 Body mass index [BMI] 45.0-49.9, adult; E11.40 Type 2 diabetes mellitus with diabetic neuropathy, unspecified; I89.0 Lymphedema, not elsewhere classified; E11.65 Type 2 diabetes mellitus with hyperglycemia; E78.5 Hyperlipidemia, unspecified; K21.9 Gastro-esophageal reflux disease without esophagitis; G47.33 Obstructive sleep apnea (adult) (pediatric); I25.2 Old myocardial infarction; I10 Essential (primary) hypertension; E66.01 Morbid (severe) obesity due to excess calories; M19.90 Unspecified osteoarthritis, unspecified site; F32.9 Major depressive disorder, single episode, unspecified; Z79.01 Long term (current) use of anticoagulants; Z79.4 Long term (current) use of insulin; Z85.41 Personal history of malignant neoplasm of cervix uteri; Z88.1 Allergy status to other antibiotic agents
CPT/HCPCS: 74019; 80048; 80053; 82565; 82948; 83036; 83605; 83735; 85007; 85025; 85027; 87040; 87186; 87205; 93306; 96365; 96375; J0690; J0780; J1644; J1815; J2270; J2543; J3370; J7030; J7040; J7050